=== PATIENT | female | born 1940 | race Caucasian/White ===

== ENCOUNTER 2016-06-29 10:10 | Outpatient (CLI) | payer MEDICARE ==
[2016-06-29 13:19] LABS: ALBUMIN/GLOBULIN RATIO 0.8 (1.0-2.2); CALCIUM 8.9 mg/dL (8.5-10.3); CREATININE 0.8 mg/dL (0.4-1.0); POTASSIUM 3.7 mmol/L (3.5-5.0); TOTAL PROTEIN 8.1 g/dL (6.7-8.2)
[2016-06-29 13:50] LABS: BILIRUBIN,TOTAL 0.6 mg/dL (0.2-1.0)
== END 2016-06-29 10:11 | disposition home or self-care (01) ==
LOC: LAB.WCP 10:10
PROVIDERS: ATTEND Family Medicine
DX: R74.8 Abnormal levels of other serum enzymes (principal)
CPT/HCPCS: 36415; 80053

== ENCOUNTER 2016-07-07 13:55 | Outpatient (CLI) | payer MEDICARE | END 2016-07-07 13:56 | disposition home or self-care (01) | DX: R74.8 Abnormal levels of other serum enzymes (principal) ==

== ENCOUNTER 2016-07-20 06:06 | Day surgery (SDC) | payer MEDICARE ==
[2016-07-20] MEDS ORDERED: PHENYLEPHRINE 2.5% OPHTH 2 ML DROPS ONE (06:22)
[2016-07-20] MEDS ORDERED: LACTATED RINGERS 500 ML IV ONE (06:40)
[2016-07-20] MEDS ORDERED: PHENYLEPHRINE 2.5% OPHTH 2 ML DROPS OPTH ONE (06:42)
[2016-07-20] MEDS ORDERED: CYCLOPENTOLATE 1% OPHTH DROPS 2 ML OPTH ONE (06:42)
[2016-07-20] MEDS ORDERED: PROPARACAINE 0.5% OPHTH DROPS 15 ML OPTH ONE (06:42)
[2016-07-20] MEDS ORDERED: KETOROLAC 0.45% OPHTH DROPS OPTH ONE (06:42)
[2016-07-20] MEDS ORDERED: MIDAZOLAM 2 MG/2 ML VIAL IVP ONE (07:15)
[2016-07-20] MEDS ORDERED: BRIMONIDINE 0.2% OPHTH DROPS 5 ML OPTH ONE (07:30)
[2016-07-20] MEDS ORDERED: EPINEPHrine 1 MG/ML AMP IVP ONE (10:41)
[2016-07-20] MEDS ORDERED: levoFLOXacin 0.5% OPHTH DROPS 5 ML OPTH ONE (10:42)
[2016-07-20] MEDS ORDERED: BSS/LIDOCAINE/EPINEPHRINE 1 ML SYRINGE IO ONE (10:42)
[2016-07-20] MEDS ORDERED: CHONDR SULF/HYALURONATE SYRINGE IO ONE (10:42)
[2016-07-20] MEDS ORDERED: TRIAMCIN/MOXIFLOX/VANCO 1 ML VIAL IO ONE (10:42)
== END 2016-07-20 06:07 | disposition home or self-care (01) ==
PROC: 08RK3JZ Replacement of Left Lens with Synthetic Substitute, Percutaneous Approach (ICD-10-PCS; principal; 2016-07-20 07:30)
DX: H25.812 Combined forms of age-related cataract, left eye (principal); I10 Essential (primary) hypertension; Z79.82 Long term (current) use of aspirin; Z86.73 Personal history of transient ischemic attack (TIA), and cerebral infarction without residual deficits; Z83.3 Family history of diabetes mellitus; Z87.891 Personal history of nicotine dependence; J44.9 Chronic obstructive pulmonary disease, unspecified; E66.9 Obesity, unspecified; Z68.41 Body mass index [BMI] 40.0-44.9, adult; G47.30 Sleep apnea, unspecified
CPT/HCPCS: 66984; A9270; V2632

== ENCOUNTER 2017-09-06 08:00 | Outpatient (CLI) | payer MEDICARE ==
[2017-09-06 19:06] LABS: BASOPHILS # (AUTO) 0.1 10^3/uL (0.0-0.1); BASOPHILS % (AUTO) 0.6 %; EOSINOPHILS # (AUTO) 0.2 10^3/uL (0.0-0.7); EOSINOPHILS % (AUTO) 1.2 %; HGB - HEMOGLOBIN 15.2 g/dL (12.0-16.0); LYMPHOCYTES % (AUTO) 14.3 %; MEAN CORPUSCULAR HEMOGLOBIN 25.2 pg (27.0-31.0); MEAN CORPUSCULAR HGB CONC 31.1 g/dL (32.0-36.0); MEAN CORPUSCULAR VOLUME 81.1 fL (81.0-99.0); MEAN PLATELET VOLUME 9.6 fL (7.9-10.8); MONOCYTES # (AUTO) 1.1 10^3/uL (0.0-1.0); MONOCYTES % (AUTO) 7.8 %; NEUTROPHILS # (AUTO) 10.5 10^3/uL (1.5-6.6); NEUTROPHILS % (AUTO) 76.1 %; PLT - PLATELET COUNT 319 10^3/uL (130-450); RED BLOOD COUNT 6.01 10^6/uL (4.20-5.40); RED CELL DISTRIBUTION WIDTH 16.1 % (12.0-15.0); WHITE BLOOD COUNT 13.7 x10^3/uL (4.8-10.8)
[2017-09-06 19:15] LABS: ALBUMIN 3.5 g/dL (3.2-5.5); ALBUMIN/GLOBULIN RATIO 0.8 (1.0-2.2); ALKALINE PHOSPHATASE 103 IU/L (42-121); ALT ALANINE AMINOTRANSFERASE 34 IU/L (10-60); AST ASPARTATE AMINOTRANSFERASE 59 IU/L (10-42); BILIRUBIN,TOTAL 0.5 mg/dL (0.2-1.0); BUN - BLOOD UREA NITROGEN 21 mg/dL (6-20); CALCIUM 8.6 mg/dL (8.5-10.3); CARBON DIOXIDE - CO2 28 mmol/L (21-32); CHLORIDE 103 mmol/L (101-111); CHOL/HDL RATIO 6.4 (<4.4); CHOLESTEROL 173 mg/dL; CREATININE 0.5 mg/dL (0.4-1.0); GFR - MDRD 120 (>89); GLUCOSE 137 mg/dL (70-100); HDL CHOLESTEROL 27 mg/dL; LDL CHOLESTEROL,CALCULATED 124 mg/dL; LDL/HDL RATIO 4.6 (<4.4); SODIUM 140 mmol/L (135-145); TOTAL PROTEIN 7.7 g/dL (6.7-8.2); VLDL CHOLESTEROL 22 mg/dL
== END 2017-09-06 08:01 | disposition home or self-care (01) ==
LOC: LAB.WCP 08:00
PROVIDERS: ATTEND Family Medicine
DX: I10 Essential (primary) hypertension (principal); E78.5 Hyperlipidemia, unspecified; E66.01 Morbid (severe) obesity due to excess calories; D75.1 Secondary polycythemia; I20.9 Angina pectoris, unspecified
CPT/HCPCS: 36415; 80053; 80061; 83721; 84443; 85025

== ENCOUNTER 2017-11-02 16:15 | Outpatient (CLI) | payer MEDICARE ==
--- NOTE | 2017-11-02 17:38 | CT Report ---
Procedure Date: 11/02/2017 Accession Number: [id number] / [id number] Procedure: CT - Facial Bones W/O CPT Code: FULL RESULT: EXAM: CT MAXILLOFACIAL WITHOUT CONTRAST EXAM DATE: 11/02/2017 04:47 PM. CLINICAL HISTORY: MAXILLARY ASYMMETRY, CELLULITIS FACE, RIGHT. COMPARISONS: None. TECHNIQUE: Thin-section axial images were acquired of the face without contrast. Post-processing: Coronal and sagittal reformats. Other: None. In accordance with CT protocol optimization, one or more of the following dose reduction techniques were utilized for this exam: automated exposure control, adjustment of mA and/or KV based on patient size, or use of iterative reconstructive technique. FINDINGS: Soft Tissue: Streak artifact obscures perimandibular and perimaxillary soft tissues. There is mild fat stranding and increased soft tissue density within the visualized right maxillary soft tissues without noncontrast evidence of drainable fluid collection. Orbits: Symmetric and unremarkable. Bones: No acute fracture. Remote nasal bone fracture. No focal bony lesions. Temporomandibular Joints: The temporomandibular joints are symmetric and normally located. Sinuses: There is mild right maxillary sinus mucosal thickening. No evidence of acute sinusitis. Mastoid air cells are clear. Other: There is encephalomalacia within the right occipital region. There is right MCA distribution encephalomalacia. IMPRESSION: 1. Streak artifact from dental fillings obscures perimandibular and perimaxillary soft tissues. There is mild fat stranding and increased soft tissue density within the visualized right maxillary soft tissues without noncontrast evidence of drainable fluid collection. 2. No acute bony abnormalities are seen. 3. There is right maxillary sinusitis. 4. 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 [facility]
== END 2017-11-02 16:16 | disposition home or self-care (01) ==
LOC: DI 16:15
PROVIDERS: ATTEND Family Medicine
DX: J32.0 Chronic maxillary sinusitis (principal); Z86.73 Personal history of transient ischemic attack (TIA), and cerebral infarction without residual deficits
CPT/HCPCS: 70486

== ENCOUNTER 2018-01-15 11:53 | Outpatient (CLI) | payer MEDICARE ==
[2018-01-15 18:37] LABS: BASOPHILS # (AUTO) 0.1 10^3/uL (0.0-0.1); BASOPHILS % (AUTO) 0.7 %; EOSINOPHILS # (AUTO) 0.1 10^3/uL (0.0-0.7); HGB - HEMOGLOBIN 16.1 g/dL (12.0-16.0); LYMPHOCYTES # (AUTO) 1.9 10^3/uL (1.5-3.5); LYMPHOCYTES % (AUTO) 14.4 %; MEAN CORPUSCULAR HEMOGLOBIN 25.8 pg (27.0-31.0); MEAN CORPUSCULAR HGB CONC 32.1 g/dL (32.0-36.0); MEAN CORPUSCULAR VOLUME 80.4 fL (81.0-99.0); MEAN PLATELET VOLUME 9.7 fL (7.9-10.8); MONOCYTES # (AUTO) 1.1 10^3/uL (0.0-1.0); NEUTROPHILS # (AUTO) 10.2 10^3/uL (1.5-6.6); NEUTROPHILS % (AUTO) 75.9 %; PLT - PLATELET COUNT 275 10^3/uL (130-450); RED BLOOD COUNT 6.23 10^6/uL (4.20-5.40); RED CELL DISTRIBUTION WIDTH 18.6 % (12.0-15.0); WHITE BLOOD COUNT 13.4 x10^3/uL (4.8-10.8)
[2018-01-15 19:26] LABS: ALBUMIN 3.5 g/dL (3.2-5.5); ALBUMIN/GLOBULIN RATIO 0.8 (1.0-2.2); BILIRUBIN,TOTAL 0.9 mg/dL (0.2-1.0); CALCIUM 8.6 mg/dL (8.5-10.3); CREATININE 0.4 mg/dL (0.4-1.0); TOTAL PROTEIN 7.8 g/dL (6.7-8.2)
== END 2018-01-15 11:54 ==
LOC: LAB.WCP 11:53
PROVIDERS: ATTEND Family Medicine
DX: R61 Generalized hyperhidrosis (principal); R59.0 Localized enlarged lymph nodes
CPT/HCPCS: 36415; 80053; 85025; 86140

== ENCOUNTER 2018-01-23 12:35 | Outpatient (CLI) | payer MEDICARE ==
[2018-01-23] MEDS ORDERED: IOPAMIDOL-300 100 ML VIAL ONE (13:00)
[2018-01-23] MEDS ORDERED: IOPAMIDOL-300 100 ML VIAL IVP ONE (13:26)
--- NOTE | 2018-01-23 17:15 | CT Report ---
Reason: NIGHT SWEATS, LYMPHADENOPATHY, AXILLA, CERVICAL LY Procedure Date: 01/23/2018 Accession Number: [id number] / [id number] Procedure: CT - Chest W/ CPT Code: FULL RESULT: EXAM: CT CHEST EXAM DATE: 01/23/2018 01:19 PM. CLINICAL HISTORY: NIGHT SWEATS, LYMPHADENOPATHY, AXILLA, CERVICAL LY. COMPARISONS: 03/28/2017. TECHNIQUE: Routine helical CT imaging was performed through the chest. IV contrast: 80 cc Isovue 300. Reconstructions: Coronal and sagittal. In accordance with CT protocol optimization, one or more of the following dose reduction techniques were utilized for this exam: automated exposure control, adjustment of mA and/or KV based on patient size, or use of iterative reconstructive technique. FINDINGS: Lungs/Pleura: No change of small right upper lobe nodule. Otherwise clear. No effusion or pneumothorax. Mediastinum: Normal heart size. No pericardial effusion. At least three-vessel coronary artery calcification. No lymphadenopathy. Bones: Degenerative changes. Visualized Abdomen: Bilateral renal cysts. Other: None. IMPRESSION: Incidental findings as noted. Negative for lymphadenopathy. [facility]
--- NOTE | 2018-01-24 14:10 | CT Report ---
Reason: NIGHT SWEATS, LYMPHADENOPATHY, AXILLA, CERVICAL LY Procedure Date: 01/23/2018 Accession Number: [id number] / [id number] Procedure: CT - Neck Soft Tissue W/ CPT Code: FULL RESULT: EXAM: CT SOFT TISSUE NECK WITH CONTRAST. EXAM DATE: 01/23/2018 01:19 PM. HISTORY: 77-year-old female with night sweats, lymphadenopathy. COMPARISONS: CHEST W/ 01/23/2018 CHEST W/O 03/28/2017. TECHNIQUE: Routine soft tissue neck CT protocol. Reconstructions: Coronal and sagittal. IV contrast: ISOVUE 300 80mL. In accordance with CT protocol optimization, one or more of the following dose reduction techniques were utilized for this exam: automated exposure control, adjustment of mA and/or KV based on patient size, or use of iterative reconstructive technique. FINDINGS: Visualized Intracranial Contents: Cystic encephalomalacia right occipital lobe, likely sequela remote infarction Orbits: Symmetric and unremarkable. Sinuses: Visualized paranasal sinuses and mastoid air cells are clear. Oral cavity: The visualized oral cavity is unremarkable. The floor of the mouth is symmetric. Pharynx : Pharyngeal mucosa is unremarkable. The infratemporal fossa, parapharyngeal spaces, and retropharyngeal space are unremarkable. The base of the tongue is symmetric and unremarkable. The airway is patent. Larynx: Larynx and supraglottic airway are patent without mass lesion. Vocal cords are symmetric. The visualized trachea is unremarkable. Parotid and Submandibular Glands: Symmetric and unremarkable. Lymph Nodes: No enlarged lymph nodes are identified in the cervical, supraclavicular, and visualized superior mediastinal regions. Soft tissues: Soft tissues are unremarkable. No mass lesion or abnormal enhancement. Vascular Structures: Extensive atherosclerosis visualized aortic arch, origins of the great vessels, and the carotid bifurcations bilaterally. Thyroid Gland: Normal. Lung: The visualized lung apices demonstrate 2 pulmonary nodules, a 6 mm right upper lobe nodule (series 4 image 43) and a 10 mm left upper lobe nodule (series 4 image 50). Both nodes are unchanged when compared to the prior studies going back to 03/28/2017. Please see the concurrently obtained CT chest, dictated separately for detailed assessment of the lungs and mediastinum. Recommend follow-up as per Fleischner Society criteria (see below) Bones: No evidence of acute fracture or malalignment. There are mild degenerative changes. Other: None. IMPRESSION: 1. No CT evidence of cervical adenopathy. No soft tissue mass, abscess, or definite mucosal abnormality. 2. The visualized lung apices demonstrate 2 pulmonary nodules, a 6 mm right upper lobe nodule (series 4 image 43) and a 10 mm left upper lobe nodule (series 4 image 50). Both nodes are unchanged when compared to the prior studies going back to 03/28/2017. Please see the concurrently obtained CT chest, dictated separately for detailed assessment of the lungs and mediastinum. Recommend follow-up as per Fleischner Society criteria (see below). 3. Cystic encephalomalacia right occipital lobe, likely sequela of remote infarction 4. Extensive atherosclerosis visualized aortic arch, origins of the great vessels, and the carotid bifurcations bilaterally. Recommend follow-up of the described nodule(s) according to the following guidelines: Fleischner Society Recommendations 2017 MacMahon et al. Radiology 2017 Solid Nodules-Low Risk Patients: <6 mm (single or multiple) - No routine follow-up* 6-8 mm (single) -CT at 6-12 months, then consider CT at 18-24 months 6-8mm (multiple) -CT at 3-6 months, then consider at CT 18-24 months >8 mm (single) -Consider CT, PET/CT, or tissue sampling at 3 months >8 mm (multiple) -CT at 3-6 months, then consider CT at 18-24 months Solid Nodules-High Risk Patients: <6 mm (single or multiple) -Optional CT at 12 months* 6-8 mm (single) -CT at 6-12 months, then CT at 18-24 months 6-8mm (multiple) -CT at 3-6 months, then CT at 18-24 months >8 mm (single) -Consider CT, PET/CT, or tissue sampling at 3 months >8 mm (multiple) -CT at 3-6 months, then at 18-24 months *Nodules < 6mm do not require routine follow-up, but suspicious nodule morphology, upper lobe location, or both may warrant 12 month follow-up [facility]
== END 2018-01-23 12:36 | disposition home or self-care (01) ==
LOC: DI 12:35
PROVIDERS: ATTEND Family Medicine
DX: R91.8 Other nonspecific abnormal finding of lung field (principal); G93.89 Other specified disorders of brain; I25.10 Atherosclerotic heart disease of native coronary artery without angina pectoris; I65.23 Occlusion and stenosis of bilateral carotid arteries
CPT/HCPCS: 70491; 71260; Q9967

== ENCOUNTER 2018-08-05 11:40 | Outpatient (CLI) | payer MEDICARE ==
[2018-08-05 18:59] LABS: BASOPHILS # (AUTO) 0.1 10^3/uL (0.0-0.1); BASOPHILS % (AUTO) 0.7 %; EOSINOPHILS # (AUTO) 0.2 10^3/uL (0.0-0.7); EOSINOPHILS % (AUTO) 1.3 %; HGB - HEMOGLOBIN 17.1 g/dL (12.0-16.0); LYMPHOCYTES # (AUTO) 2.1 10^3/uL (1.5-3.5); LYMPHOCYTES % (AUTO) 17.6 %; MEAN CORPUSCULAR HEMOGLOBIN 27.1 pg (27.0-31.0); MEAN CORPUSCULAR HGB CONC 31.7 g/dL (32.0-36.0); MEAN CORPUSCULAR VOLUME 85.7 fL (81.0-99.0); MEAN PLATELET VOLUME 9.7 fL (7.9-10.8); MONOCYTES # (AUTO) 0.9 10^3/uL (0.0-1.0); MONOCYTES % (AUTO) 7.3 %; NEUTROPHILS # (AUTO) 8.8 10^3/uL (1.5-6.6); NEUTROPHILS % (AUTO) 73.1 %; PLT - PLATELET COUNT 286 10^3/uL (130-450); RED CELL DISTRIBUTION WIDTH 17.3 % (12.0-15.0)
[2018-08-05 19:43] LABS: ALBUMIN 3.5 g/dL (3.2-5.5); ALBUMIN/GLOBULIN RATIO 0.8 (1.0-2.2); ALKALINE PHOSPHATASE 100 IU/L (42-121); ALT ALANINE AMINOTRANSFERASE 26 IU/L (10-60); AST ASPARTATE AMINOTRANSFERASE 37 IU/L (10-42); BILIRUBIN,TOTAL 0.8 mg/dL (0.2-1.0); BUN - BLOOD UREA NITROGEN 18 mg/dL (6-20); CALCIUM 8.7 mg/dL (8.5-10.3); CARBON DIOXIDE - CO2 28 mmol/L (21-32); CHLORIDE 96 mmol/L (101-111); CHOLESTEROL 192 mg/dL; CREATININE 0.6 mg/dL (0.4-1.0); GFR - MDRD 97 (>89); GLUCOSE 153 mg/dL (70-100); HDL CHOLESTEROL 32 mg/dL; LDL CHOLESTEROL,CALCULATED 136 mg/dL; LDL/HDL RATIO 4.3 (<4.4); SODIUM 135 mmol/L (135-145); TOTAL PROTEIN 7.7 g/dL (6.7-8.2); VLDL CHOLESTEROL 24 mg/dL
== END 2018-08-05 11:41 | disposition home or self-care (01) ==
LOC: LAB.WCP 11:40
PROVIDERS: ATTEND Family Medicine
DX: I10 Essential (primary) hypertension (principal); E78.5 Hyperlipidemia, unspecified
CPT/HCPCS: 36415; 80053; 80061; 83721; 85025

== ENCOUNTER 2019-04-11 15:14 | Inpatient (IN) | payer MEDICARE ==
[2019-04-11 15:59] LABS: BASOPHILS # (AUTO) 0.1 10^3/uL (0.0-0.1); BASOPHILS % (AUTO) 0.6 %; EOSINOPHILS # (AUTO) 0.1 10^3/uL (0.0-0.7); EOSINOPHILS % (AUTO) 0.6 %; HGB - HEMOGLOBIN 14.7 g/dL (12.0-16.0); LYMPHOCYTES # (AUTO) 1.6 10^3/uL (1.5-3.5); LYMPHOCYTES % (AUTO) 9.7 %; MEAN CORPUSCULAR HEMOGLOBIN 25.6 pg (27.0-31.0); MEAN CORPUSCULAR HGB CONC 30.4 g/dL (32.0-36.0); MEAN CORPUSCULAR VOLUME 84.1 fL (81.0-99.0); MEAN PLATELET VOLUME 10.7 fL (7.9-10.8); MONOCYTES # (AUTO) 1.2 10^3/uL (0.0-1.0); MONOCYTES % (AUTO) 7.6 %; NEUTROPHILS % (AUTO) 80.8 %; PLT - PLATELET COUNT 299 10^3/uL (130-450); RED BLOOD COUNT 5.74 10^6/uL (4.20-5.40); RED CELL DISTRIBUTION WIDTH 16.6 % (12.0-15.0); WHITE BLOOD COUNT 16.1 x10^3/uL (4.8-10.8)
--- NOTE | 2019-04-11 16:03 | ED Physician Documentation ---
History of Present Illness - Stated complaint Stated Complaint: SOA, CHILLS - Chief complaint Chief Complaint: Resp - Additonal information Additional information: This is a 78-year-old female with a history of COPD, polycythemia, angina, who presents with progressive shortness of breath and leg swelling. Patient states that typically she is on a low level of oxygen via nasal cannula only as needed at home. She has had increasing need for oxygen over the last week, and she is very short of breath with any ambulation at all. She denies chest discomfort but states that her breathing feels tight. She has been quite short of breath e specially over the last day, to the point where she sought care in the emergency department. She denies any past diagnosis of atrial fibrillation or other dysrhythmia. She has never been told she has heart failure. She denies fever but she has had chills. She has noticed her bilateral legs appear swollen to her, and she is very short of breath when she lies down. Review of Systems Constitutional: reports: Chills. 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 Cardiovascular: Coronary stent, Lobectomy HEENT: Cataracts, Tonsil/Adenoidectomy - Present Medications Home Medications: Ambulatory Orders Medication Instructions Recorded Confirmed Amlodipine Besylate [Norvasc] 5 mg PO QPM 05/03/15 03/31/19 Aspirin 81 mg PO QPM 05/03/15 03/31/19 Fluticasone/Salmeterol 250/50 1 puffs INH BID 05/03/15 03/31/19 [Advair 250 Mcg/50 Mcg] Gabapentin 600 mg PO QPM 05/03/15 03/31/19 traZODone [Desyrel] 50 mg PO QPM 05/03/15 03/31/19 hydroCHLOROthiazide 12.5 mg PO DAILY 03/06/16 03/31/19 [Hydrochlorothiazide] FLUoxetine [PROzac] 20 mg PO DAILY 12/30/18 03/31/19 - Allergies Allergies/Adverse Reactions: Allergies Allergy/AdvReac Type Severity Reaction Status Date / Time No Known Drug Allergies Allergy Verified 04/11/19 15:22 - Social History Does the pt smoke?: No Smoking Status: Never smoker Does the pt drink ETOH?: No Does the pt have substance abuse?: No - Immunizations Immunizations are current?: Yes PD ED PE NORMAL - General General: Other (Sitting up in bed, wearing nasal cannula, with tachypnea and obvious increased work of breathing.) - HEENT HEENT: Atraumatic - Cardiac Cardiac: Other (Irregularly irregular rhythm, atrial fibrillation on the monitor. No murmurs.) - Respiratory Respiratory: Other (Tachypneic, breathing greater than 20 times a minute while on nasal cannula. There are bibasilar crackles, and reduced air movement diffusely.) - Abdomen Abdomen: Other (Soft, rotund, nontender in all 4 quadrants.) - Extremities Extremities: Other (1+ pitting edema in the bilateral extremities to level the melendrez.) - Neuro Neuro: Alert and oriented X 3 Results - Vitals Vitals: Vital Signs - 24 hr 04/11/19 04/11/19 04/11/19 15:23 15:41 16:31 Temperature 36.9 C Heart Rate 80 115 H 107 H Respiratory 26 H 23 18 Rate Blood Pressure 114/81 H 113/83 H 122/87 H O2 Saturation 89 L 94 94 04/11/19 04/11/19 04/11/19 16:50 17:05 17:39 Temperature Heart Rate 122 H 112 H 119 H Respiratory 24 23 Rate Blood Pressure 122/89 H 137/95 H O2 Saturation 99 92 04/11/19 04/11/19 18:00 18:30 Temperature Heart Rate 126 H 108 H Respiratory 18 23 Rate Blood Pressure 137/95 H 158/142 H O2 Saturation 99 95 Oxygen O2 Source BIPAP Oxygen Flow Rate 2 - EKG (time done) 15:44 Other comments: Other comments (Rate 114, rhythm atrial fibrillation, there is no obvious ST segment elevation or depression, baseline artifact obscures fine details) - Labs Labs: Laboratory Tests 04/11/19 04/11/1904/11/19 15:55 15:55 15:55 WBC 16.1 H RBC 5.74 H Hgb 14.7 Hct 48.3 H MCV 84.1 MCH 25.6 L MCHC 30.4 L RDW 16.6 H Plt Count 299 MPV 10.7 Neut # (Auto) 13.0 H Lymph # (Auto) 1.6 Page # (Auto) 1.2 H Eos # (Auto) 0.1 Baso # (Auto) 0.1 Absolute Nucleated RBC 0.00 Nucleated RBC % 0.0 Sodium 137 Potassium 4.0 Chloride 96 L Carbon Dioxide 30 Anion Gap 11.0 BUN 20 Creatinine 0.6 Estimated GFR (MDRD) 97 Glucose 149 H Calcium 8.6 Total Bilirubin 0.7 AST 36 ALT 23 Alkaline Phosphatase 84 Troponin I High Sens 10.1 B-Natriuretic Peptide Total Protein 7.9 Albumin 3.4 Globulin 4.5 H Albumin/Globulin Ratio 0.8 L Lipase 25 04/11/19 15:55 WBC RBC Hgb Hct MCV MCH MCHC RDW Plt Count MPV Neut # (Auto) Lymph # (Auto) Page # (Auto) Eos # (Auto) Baso # (Auto) Absolute Nucleated RBC Nucleated RBC % Sodium Potassium Chloride Carbon Dioxide Anion Gap BUN Creatinine Estimated GFR (MDRD) Glucose Calcium Total Bilirubin AST ALT Alkaline Phosphatase Troponin I High Sens B-Natriuretic Peptide 370 H Total Protein Albumin Globulin Albumin/Globulin Ratio Lipase - Rads (name of study) CXR, my interpretation\ Radiology: Other (Diffuse interstitial markings suggestive of pulmonary edema, pleural effusion on the right.Hilar prominence on the right) PD MEDICAL DECISION MAKING - ED course Complexity details: considered differential (Heart failure, ACS, pleural effusion, pneumothorax, pneumonia, electrolyte abnormality, dysrhythmia) ED course: On arrival patient is hypoxic and tachypneic, with rest on nasal cannula she maintains O2 at ~95%, but she continues to be tachypneic. On the monitor she is in atrial fibrillation, EKG shows A. fib with a rate of 114, no convincing signs of acute ischemia. Chest x-ray is obtained which confirms some volume overload with a right pleural effusion. Bedside echocardiogram is somewhat limited due to body habitus however she does appear to have reduced left ejection fraction. Her right ventricle appears normal in proportional size. Labs are notable for a normal troponin, patient has no chest pain, making ACS less likely. Her BNP is elevated, and given her body habitus it likely is not accurate. Patient was placed on BiPAP and she had marketed improvement of her respiratory status. PE was considered however her leg swelling is all, she has no pleuritic pain, and given her improvement with BiPAP pulmonary embolism is less likely. She was also given Lasix 40 mg IV. On her labs she does have a leukocytosis, yet she is afebrile here and I do not see an obvious infectious source at this time. Leukocytosis may also be secondary to stress and demargination. Overall she appears to have new onset of heart failure and atrial fibrillation. Her atrial fibrillation is rate controlled at this time. She was admitted to the hospital for further evaluation and treatment, if she becomes febrile or infectious source is found, plan is to start on antibiotics and draw blood cultures. Urine is pending at time of admission. Patient was updated with the plan and she is in agreement. She continues to feel very well on the BiPAP. Departure - Departure Disposition: [facility] DC/Xfer Clinical Impression: Heart failure Qualifiers: Heart failure type: unspecified Heart failure chronicity: unspecified Qualified Code(s): I50.9 - Heart failure, unspecified Leukocytosis Qualifiers: Leukocytosis type: other Qualified Code(s): D72.828 - Other elevated white blood cell count Respiratory failure Qualifiers: Chronicity: acute Respiratory failure complication: hypoxia Qualified Code(s): J96.01 - Acute respiratory failure with hypoxia Condition: Stable Discharge Date/Time: 04/11/19 19:43
[2019-04-11 16:13] LABS: ALBUMIN 3.4 g/dL (3.2-5.5); ALBUMIN/GLOBULIN RATIO 0.8 (1.0-2.2); BILIRUBIN,TOTAL 0.7 mg/dL (0.2-1.0); CALCIUM 8.6 mg/dL (8.5-10.3); CREATININE 0.6 mg/dL (0.4-1.0); TOTAL PROTEIN 7.9 g/dL (6.7-8.2)
[2019-04-11] MEDS ORDERED: FUROSEMIDE 40 MG/4 ML VIAL IVP STA (18:16)
[2019-04-11] MEDS ORDERED: SODIUM CHLORIDE FLUSH 0.9% 10 ML SYRINGE IVP PRN (19:27)
[2019-04-11] MEDS ORDERED: ACETAMINOPHEN 325 MG TABLET PO PRN (19:27)
[2019-04-11 20:20] LABS: MAGNESIUM 2.3 mg/dL (1.7-2.8); PHOSPHORUS 3.6 mg/dL (2.5-4.6)
--- NOTE | 2019-04-11 20:46 | HISTORY & PHYSICAL EXAMINATION ---
Chief Complaint - Chief Complaint Chief Complaint: Shortness of breath History of Present Illness - Admitted From Admitted From:: Home - History Obtained From Records Reviewed: Yes History obtained from: Patient, EMR - History of Present Illness HPI Comment/Other: This is a 78-year-old female with a past medical history significant for COPD with oxygen use as needed, obstructive sleep apnea, polycythemia, neuropathy, hypertension, coronary artery disease with stenting in the past who presents today complaining of worsening shortness of breath over the past week. She states her symptoms have progressively become more severe. She has associated orthopnea and worsening lower extremity edema over the past week. Reports a mild nonproductive cough. Denies fevers but reports chills. She has been using her Advair and albuterol more frequently this past week with improvement in her symptoms. She reports no sick contacts. She did not get a flu shot this year. She reports no history of heart failure. She did have a stent placed over 10 y ears ago in [place] but denies chest pain at this time. She denies a history of atrial fibrillation. Denies having palpitations. She reports no bleeding history. She does have polycythemia and gets monthly phlebotomies. In the emergency department, she was initially hypoxic to 89% on room air. She is found to be in atrial fibrillation with rates in the 120s. She is given Lasix 40 mg IV and placed on BiPAP given her respiratory status. Her labs did reveal a white count of 16.1 with a left shift. Her initial troponin was negative. BNP was 370. Rest of her labs unremarkable. Given her respiratory symptoms and requirement of BiPAP, medicine was consulted for admission. I did discuss with the patient regarding goals of care and she would like to be a DNR. We also discussed the possibility of intubation if deemed necessary and she also declined that. 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 - Family & Social History Family History Comment/Other: She reports her twin sister from a aortic dissection. Her father in his 40s which she believes was secondary to a possible aneurysm. Her mother lived into her 90s. Living arrangement: At home Living Situation: Alone Social History Notes: She previously lived in [place] but moved here 3 years ago after her to be closer to her son. 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 She no longer smokes but previously smoked 2 to 3 packs a day for at least 30 years. She does not drink alcohol. She wishes to be a DNR. Meds/Allgy - Home Medications Home Medications: Ambulatory Orders Medication Instructions Recorded Confirmed Amlodipine Besylate [Norvasc] 5 mg PO QPM 05/03/15 03/31/19 Aspirin 81 mg PO QPM 05/03/15 03/31/19 Fluticasone/Salmeterol 250/50 1 puffs INH BID 05/03/15 03/31/19 [Advair 250 Mcg/50 Mcg] Gabapentin 600 mg PO QPM 05/03/15 03/31/19 traZODone [Desyrel] 50 mg PO QPM 05/03/15 03/31/19 hydroCHLOROthiazide 12.5 mg PO DAILY 03/06/16 03/31/19 [Hydrochlorothiazide] FLUoxetine [PROzac] 20 mg PO DAILY 12/30/18 03/31/19 - Allergies Allergies/Adverse Reactions: Allergies Allergy/AdvReac Type Severity Reaction Status Date / Time No Known Drug Allergies Allergy Verified 04/11/19 15:22 Review of Systems - Constitutional Constitutional: reports: Chills. denies: Fatigue, Fever, Weakness - Cardiovascular Cariovascular: reports: Edema, Exertional dyspnea, Decr. exercise tolerance. denies: Palpitations, Chest pain - Respiratory Respiratory: reports: Cough, Orthopnea, SOB at rest, SOB with exertion. denies: Sputum production, Wheezing - Gastrointestinal Gastrointestinal: denies: Abdominal pain, Constipation, Diarrhea, Nausea, Vomiting - Genitourinary Genitourinary: denies: Dysuria, Frequency, Urgency - Musculoskeletal Musculoskeletal: denies: Muscle weakness - Integumentary Integumentary: denies: Rash - Neurological Neurological: denies: General weakness, Focal weakness, Numbness - Hematologic/Lymphatic Hematologic/Lymphatic: denies: Anemia, Bruising, Bleeding tendencies - All Other Systems All Other Systems: reports: Reviewed and negative Prior Level of Functionality: Shee lives alone and usually ambulates with a walker. She does have a cane which she does not use often. Exam - Vital Signs Reviewed Vital Signs: Yes Vital Signs: Vital Signs x48h Temp Pulse Pulse Resp BP BP Pulse Ox 04/11/19 20:13 36.6 C 04/11/19 20:00 100 30 H 105/69 97 04/11/19 19:55 111 H 04/11/19 19:30 127 H 24 95 04/11/19 19:00 121 H 23 146/112 H 95 04/11/19 18:30 108 H 23 158/142 H 95 04/11/19 18:00 126 H 18 137/95 H 99 04/11/19 17:39 119 H 23 137/95 H 92 04/11/19 17:05 112 H 04/11/19 16:50 122 H 24 122/89 H 99 04/11/19 16:31 107 H 18 122/87 H 94 04/11/19 15:41 115 H 23 113/83 H 94 04/11/19 15:23 36.9 C 80 26 H 114/81 H 89 L - Physical Exam General Appearance: positive: No acute distress, Alert Eyes Bilateral: positive: Normal inspection ENT: positive: ENT inspection nml, Other (Nasal cannula in place.) Neck: positive: Nml inspection Respiratory: positive: No respiratory distress, Other (Breath sounds diminished in the bases but clear otherwise. She is tachypnic with respiratory rate in the low 20's.). negative: Wheezes, Rales, Rhonchi Cardiovascular: positive: Irregularly irregular, Tachycardia. negative: Systolic murmur, Diastolic murmur Abdomen: positive: Non-tender, No distention. negative: Guarding, Rebound Skin: positive: No rash, Warm, Dry Extremities: positive: Pedal edema (+1 nonpitting edema in bilateral lower extremities.) Neurologic/Psychiatric: positive: Oriented x3, Motor nml. negative: Disoriented to person, Disoriented to place, Disoriented to time Conclusion/Plan - Problem List (1) Dyspnea Conclusion/Plan: Presenting symptoms are concerning for heart failure. She does have orthopnea and lower extremity edema. She is currently saturating 92% on room air but she i nsists on keeping the oxygen on as it improves her symptoms. Her x-ray is suggestive of a tiny right pleural effusion and mild pulmonary vascular congestion although the official radiology report is pending. BNP is only mildly elevatd in the 300's. She received Lasix IV in the emergency department with improvement in her symptoms. We will continue her on Lasix IV daily. We will check an echocardiogram in the morning. We will also obtain Dopplers of the lower extremities to evaluate for possible DVT. If her symptoms persist despite diuresis and Dopplers are negative, will obtain CTA of the chest. (2) Atrial fibrillation with rapid ventricular response Conclusion/Plan: This is a new diagnosis for her. Resented with heart rates in the 110s to 120s. Troponin negative x2. Her electrolytes are optimized. We will check a TSH and echocardiogram. We will start her on metoprolol 25 mg twice a day. We did discuss anticoagulation given her elevated [id number] and she is agreeable to this. We will start her on Eliquis 5 mg twice a day (3) COPD (chronic obstructive pulmonary disease) Conclusion/Plan: Her presenting symptoms are not consistent with a COPD exacerbation despite her reported improvement with albuterol and Advair. Her lungs are diminished in the bases and clear throughout without wheezing. We will continue Pulmicort and formoterol while inpatient. Albuterol as needed. Continue supplemental oxygen for goal saturation greater than 88%. (4) Obstructive sleep apnea Conclusion/Plan: She is not on CPAP at home. She uses oxygen as needed overnight. (5) Hypertension Conclusion/Plan: She is currently normotensive. Will resume her home amlodipine and hydrochlorothiazide. (6) Coronary artery disease Conclusion/Plan: EKG is without signs of ischemia. Troponin has been negative x2. Continue aspirin. She should be on a statin and will start Lipitor. (7) Polycythemia Conclusion/Plan: Her hemoglobin is stable at this time. She can continue outpatient phlebotomy and follow-up with hematology. - Lab Results Lab results reviewed: Yes Fish Bones: 04/12/19 05:17 04/12/19 05:17 - Diagnostic Imaging Results Diagnostic Imaging Results: positive: Read independently Diagnostic Imaging Results Comments: There appears to be a tiny right pleural effusion. No obvious infiltrate. Possible mild pulmonary vascular congestion. - EKG Results EKG Interpreted Independently: Yes EKG Comparison: Changed from prior EKG EKG Findings: EKG revealed atrial fibrillation with rates in the 110s. No obvious signs of ischemia although there is motion artifact present which makes certain leads difficult to interpret. Core Measures - Anticipated LOS I expect patient to be DC'd or transferred within 96 hours.: Yes
[2019-04-11] MEDS ORDERED: HEPARIN 5,000 UNIT/ML VIAL SUBQ SCH (21:00)
[2019-04-11] MEDS ORDERED: GABAPENTIN 400 MG CAPSULE PO SCH (21:00)
[2019-04-11] MEDS: APIXABAN 5 MG TABLET PO SCH (21:17)
[2019-04-11] MEDS: METOPROLOL TARTRATE 25 MG TABLET PO SCH (21:17)
[2019-04-11] MEDS ORDERED: GABAPENTIN 300 MG CAPSULE ONE (21:20)
[2019-04-11 21:24] LABS: BILIRUBIN,URINE NEGATIVE (NEGATIVE); GLUCOSE, URINE (UA) NEGATIVE (NEGATIVE); KETONES,URINE (UA) NEGATIVE (NEGATIVE); LEUKOCYTE ESTERASE, URINE MODERATE (NEGATIVE); NITRITE,URINE POSITIVE (NEGATIVE); OCCULT BLOOD,URINE TRACE-LYSE (NEGATIVE); PH,URINE 6.5 PH (5.0-7.5); PROTEIN,URINE NEGATIVE (NEGATIVE); UROBILINOGEN,URINE 0.2 (NORMAL) E.U./dL (NORMAL)
[2019-04-11 21:28] LABS: CLARITY,URINE HAZY (CLEAR)
[2019-04-11 21:31] LABS: SQUAMOUS EPITHELIAL CELL,UR FEW Squamous (<= Few); WBC CLUMPS,URINE PRESENT
[2019-04-11 21:32] LABS: BACTERIA,URINE Many /HPF (None Seen)
[2019-04-11] MEDS: NYSTATIN POWDER 15 GM TOP SCH (22:05)
[2019-04-11] MEDS ORDERED: hydrOXYzine PAMOATE 25 MG CAPSULE PO STA (22:48)
--- NOTE | 2019-04-11 23:09 | XRAY Report ---
Reason: chest pain Procedure Date: 04/11/2019 Accession Number: [id number] / [id number] Procedure: XR - Chest 1 View X-Ray CPT Code: 76079 Final Report FULL RESULT: EXAM: CHEST RADIOGRAPHY EXAM DATE: 04/11/2019 04:00 PM. CLINICAL HISTORY: Chest pain. Shortness of breath. COPD. COMPARISON: CHEST 2 VIEW PA/LAT 06/06/2016 3:30 PM. TECHNIQUE: 1 view. FINDINGS: Lungs/Pleura: Pulmonary vascular congestion. Chronic right costophrenic angle blunting. No alveolar consolidation seen. No pneumothorax. Mediastinum: Within exam limitations, heart is mildly enlarged. Aortic atherosclerosis. Other: Osteopenia. IMPRESSION: 1. Cardiomegaly and pulmonary vascular congestion. 2. Chronic right costophrenic angle blunting probably due to scarring. RADIA
[2019-04-12] MEDS: SODIUM CHLORIDE FLUSH 0.9% 10 ML SYRINGE IVP SCH ×4 (01:00→20:58)
[2019-04-12 05:26] LABS: BASOPHILS # (AUTO) 0.1 10^3/uL (0.0-0.1); BASOPHILS % (AUTO) 0.7 %; EOSINOPHILS # (AUTO) 0.2 10^3/uL (0.0-0.7); EOSINOPHILS % (AUTO) 1.2 %; HGB - HEMOGLOBIN 14.7 g/dL (12.0-16.0); LYMPHOCYTES # (AUTO) 1.9 10^3/uL (1.5-3.5); LYMPHOCYTES % (AUTO) 13.4 %; MEAN CORPUSCULAR HEMOGLOBIN 25.5 pg (27.0-31.0); MEAN CORPUSCULAR HGB CONC 30.5 g/dL (32.0-36.0); MEAN CORPUSCULAR VOLUME 83.5 fL (81.0-99.0); MEAN PLATELET VOLUME 10.7 fL (7.9-10.8); MONOCYTES # (AUTO) 1.4 10^3/uL (0.0-1.0); MONOCYTES % (AUTO) 9.7 %; NEUTROPHILS # (AUTO) 10.7 10^3/uL (1.5-6.6); NEUTROPHILS % (AUTO) 74.4 %; PLT - PLATELET COUNT 332 10^3/uL (130-450); RED BLOOD COUNT 5.77 10^6/uL (4.20-5.40); RED CELL DISTRIBUTION WIDTH 17.2 % (12.0-15.0); WHITE BLOOD COUNT 14.4 x10^3/uL (4.8-10.8)
[2019-04-12 05:50] LABS: CALCIUM 9.3 mg/dL (8.5-10.3); CREATININE 0.9 mg/dL (0.4-1.0); MAGNESIUM 2.1 mg/dL (1.7-2.8); PHOSPHORUS 4.5 mg/dL (2.5-4.6)
[2019-04-12] MEDS ORDERED: POTASSIUM CHLORIDE 20 MEQ TABLET PO ONE (08:00)
[2019-04-12] MEDS ORDERED: POTASSIUM CHLORIDE 20 MEQ TABLET PO SCH (08:01)
[2019-04-12] MEDS: IPRATROPIUM 0.2 MG/ML NEB INH PRN ×2 (08:40→20:09)
[2019-04-12] MEDS: ALBUTEROL NEB 2.5 MG/3 ML INH PRN ×2 (08:40→20:10)
[2019-04-12] MEDS: FORMOTEROL FUMARATE NEB 20 MCG/2 ML INH SCH ×2 (08:40→20:10)
[2019-04-12] MEDS: BUDESONIDE 0.5 MG/2 ML NEB INH SCH ×2 (08:40→20:10)
[2019-04-12] MEDS ORDERED: amLODIPine 5 MG TABLET PO SCH (09:00)
[2019-04-12] MEDS: FUROSEMIDE 40 MG/4 ML VIAL IVP SCH (09:01)
[2019-04-12] MEDS: METOPROLOL TARTRATE 25 MG TABLET PO SCH ×2 (09:49→20:57)
[2019-04-12] MEDS: APIXABAN 5 MG TABLET PO SCH ×2 (09:49→20:57)
[2019-04-12] MEDS: hydroCHLOROthiazide 12.5 MG CAPSULE PO SCH (09:49)
[2019-04-12] MEDS: ASPIRIN EC 81 MG TABLET PO SCH (09:49)
[2019-04-12] MEDS: NYSTATIN POWDER 15 GM TOP SCH ×2 (10:00→20:58)
--- NOTE | 2019-04-12 11:59 | PROVIDER PROGRESS NOTE ---
Assessment/Plan - Problem List (1) Atrial fibrillation with rapid ventricular response Assessment/Plan: HR better but still increases with activity. Eliquis was started at admission for high CHADS score Will adjust B-cuco dose and cont telemetry Assess HR with activity Eval for coronary ischemia and untreated TORI, as causes of new Afib, since the TSH is ok (2) Acute diastolic (congestive) heart failure Assessment/Plan: Echo showed a preserved LVEF The cause of volume overload may have been new Afib with RVR or coronary ischemia Continue diuresis, new B-cuco Follow weight and I's and O's and BMP and Mg BIPAP to wean down as tolerated then can be transferred out of ICU (3) Hypokalemia Assessment/Plan: from diuresis Replace and monitor daily BMP (4) Diabetes mellitus, new onset Assessment/Plan: The extensive skin yeast infection and abdominal pannus made the admitting MD suspiscious of DM, accuchecks were ordered. Today an A1c of 7.9 confirms DM. Will change diet to cc, add ss Insulin coverage, start DM reaching, will start Metformin when we are sure no dye imaging will be needed. Liquor Merchant consult (but she is not here until Mon, today is Sat). (5) Hx of coronary artery disease Assessment/Plan: Troponins have ruled her out for acute TN With new Afib, she will need a stress test to assess for cor ischemia as the cause. Continue ASA and statin (6) Obstructive sleep apnea Assessment/Plan: She is not on CPAP but wass on home O2 prn (7) Polycythemia Assessment/Plan: H/H stable currently (8) Skin yeast infection Assessment/Plan: Topical antifungal has been ordered. (9) COPD (chronic obstructive pulmonary disease) Assessment/Plan: No wheezing Continue nebs prn and supplemental O2 (10) Hx of cancer of lung Assessment/Plan: Remote Hx - Current Meds Current Meds: Current Medications Generic Name Dose Route Start Last Admin Trade Name Freq PRN Reason Stop Dose Admin Albuterol 2.5 mg 04/11/19 19:27 04/12/19 08:40 INH 2.5 mg Q4HR PRN Administration Wheezing Apixaban 5 mg 04/11/19 21:00 04/12/19 09:49 Eliquis PO 5 mg BID KARINA Administration Aspirin 81 mg 04/12/19 09:00 04/12/19 09:49 Ecotrin PO 81 mg DAILY KARINA Administration Budesonide 0.5 mg 04/12/19 07:00 04/12/19 08:40 Pulmicort INH 0.5 mg RTBID KARINA Administration Formoterol Fumarate 20 mcg 04/12/19 07:00 04/12/19 08:40 Perforomist INH 20 mcg RTBID KARINA Administration Furosemide 40 mg 04/12/19 09:00 04/12/19 09:01 Lasix Inj 40 Mg Vial IVP 40 mg DAILY KARINA Administration Gabapentin 600 mg 04/11/19 21:00 04/11/19 21:23 Neurontin PO 600 mg QPM KARINA Administration Hydrochlorothiazide 12.5 mg 04/12/19 09:00 04/12/19 09:49 Hydrodiuril PO 12.5 mg DAILY KARINA Administration Ipratropium Crystal 0.5 mg 04/11/19 19:27 04/12/19 08:40 Atrovent INH 0.5 mg Q6HR PRN Administration Wheezing Metoprolol Tartrate 25 mg 04/11/19 21:00 04/12/19 09:49 Lopressor PO 25 mg BID KARINA Administration Nystatin 1 applic 04/11/19 22:00 04/12/19 10:00 Nystop TOP 1 applic BID KARINA Administration Sodium Chloride 10 ml 04/12/19 01:00 04/12/19 09:00 Normal Saline Flush 0.9% IVP 10 ml [id number],[id number],1700 KARINA Administration - Lab Result Fish Bone Diagrams: 04/12/19 05:17 04/12/19 05:17 - Additional Planning My Orders: My Active Orders 04/11/19 Dinner DIET [Low Sodium Diet] [DIET] 04/12/19 07:45 Echo Transthoracic Complete [ECHO] Stat Subjective - Subjective Patient Reports: Feeling Better, Resting Comfortably Nursing Reports: Other (Able to come off BIPAP to nasal cannula and walked to BR) Objective Vital Signs: Vital Signs - 24 hr 04/11/19 04/11/19 04/11/19 15:23 15:41 16:31 Temperature 36.9 C Heart Rate 80 115 H 107 H Heart Rate [ Brachial] Heart Rate [ Monitoring electrodes] Respiratory 26 H 23 18 Rate Blood Pressure 114/81 H 113/83 H 122/87 H Blood Pressure [Right Brachial artery] Blood Pressure [Right Radial artery] O2 Saturation 89 L 94 94 04/11/19 04/11/19 04/11/19 16:50 17:05 17:39 Temperature Heart Rate 122 H 112 H 119 H Heart Rate [ Brachial] Heart Rate [ Monitoring electrodes] Respiratory 24 23 Rate Blood Pressure 122/89 H 137/95 H Blood Pressure [Right Brachial artery] Blood Pressure [Right Radial artery] O2 Saturation 99 92 04/11/19 04/11/19 04/11/19 18:00 18:30 19:00 Temperature Heart Rate 126 H 108 H 121 H Heart Rate [ Brachial] Heart Rate [ Monitoring electrodes] Respiratory 18 23 23 Rate Blood Pressure 137/95 H 158/142 H 146/112 H Blood Pressure [Right Brachial artery] Blood Pressure [Right Radial artery] O2 Saturation 99 95 95 04/11/19 04/11/19 04/11/19 19:30 19:55 20:00 Temperature Heart Rate 127 H 111 H Heart Rate [ 100 Brachial] Heart Rate [ Monitoring electrodes] Respiratory 24 30 H Rate Blood Pressure Blood Pressure 105/69 [Right Brachial artery] Blood Pressure [Right Radial artery] O2 Saturation 95 97 04/11/19 04/11/19 04/11/19 20:13 21:00 21:17 Temperature 36.6 C Heart Rate Heart Rate [ Brachial] Heart Rate [ 106 H Monitoring electrodes] Respiratory 22 Rate Blood Pressure 142/94 H Blood Pressure 142/94 H [Right Brachial artery] Blood Pressure [Right Radial artery] O2 Saturation 94 04/11/19 04/11/19 04/11/19 21:40 22:00 23:10 Temperature Heart Rate 106 H 96 Heart Rate [ Brachial] Heart Rate [ 94 Monitoring electrodes] Respiratory 23 Rate Blood Pressure Blood Pressure 137/102 H [Right Brachial artery] Blood Pressure [Right Radial artery] O2 Saturation 94 04/11/19 04/12/19 04/12/19 23:12 00:00 01:00 Temperature 36.6 C Heart Rate Heart Rate [ Brachial] Heart Rate [ 112 H 98 94 Monitoring electrodes] Respiratory 22 23 24 Rate Blood Pressure Blood Pressure 94/73 102/70 107/72 [Right Brachial artery] Blood Pressure [Right Radial artery] O2 Saturation 92 92 95 04/12/19 04/12/19 04/12/19 01:30 02:00 03:01 Temperature 36.4 C L Heart Rate 107 H Heart Rate [ Brachial] Heart Rate [ 96 92 Monitoring electrodes] Respiratory 17 25 H Rate Blood Pressure Blood Pressure 99/70 111/87 H [Right Brachial artery] Blood Pressure [Right Radial artery] O2 Saturation 93 93 04/12/19 04/12/19 04/12/19 03:35 04:00 05:00 Temperature Heart Rate 101 H Heart Rate [ Brachial] Heart Rate [ 84 81 Monitoring electrodes] Respiratory 22 23 Rate Blood Pressure Blood Pressure 94/70 104/78 [Right Brachial artery] Blood Pressure [Right Radial artery] O2 Saturation 92 93 04/12/19 04/12/19 04/12/19 05:09 06:00 07:00 Temperature Heart Rate 85 Heart Rate [ Brachial] Heart Rate [ 85 73 Monitoring electrodes] Respiratory 21 24 Rate Blood Pressure Blood Pressure 99/64 [Right Brachial artery] Blood Pressure 112/84 H [Right Radial artery] O2 Saturation 95 04/12/19 04/12/19 04/12/19 08:00 08:41 09:00 Temperature Heart Rate 96 Heart Rate [ Brachial] Heart Rate [ 108 H 89 Monitoring electrodes] Respiratory 19 21 27 H Rate Blood Pressure Blood Pressure [Right Brachial artery] Blood Pressure 114/68 95/76 [Right Radial artery] O2 Saturation 94 93 04/12/19 04/12/19 04/12/19 09:49 10:00 11:00 Temperature Heart Rate Heart Rate [ Brachial] Heart Rate [ 93 83 Monitoring electrodes] Respiratory 17 20 Rate Blood Pressure 95/76 Blood Pressure [Right Brachial artery] Blood Pressure 110/71 120/81 H [Right Radial artery] O2 Saturation 94 95 Oxygen O2 Source Nasal cannula Oxygen Flow Rate 2 I&O (Last 24 Hrs): Intake and Output Totals x24h 04/10/19 04/11/19 04/12/19 23:59 23:59 23:59 Intake Total 740 Output Total 350 550 Balance -350 190 General: Alert, Oriented x3 HEENT: Mucous membr. moist/pink Neck: Supple Neuro: Non Focal Cardiovascular: No murmurs Respiratory: Other (Bibasilar rales up 1/2) Abdomen: Soft, No tenderness Extremities: Other (1+edema) - Results Results: Laboratory Results WBC 14.4 x10^3/uL (4.8-10.8) H 04/12/19 05:17 RBC 5.77 10^6/uL (4.20-5.40) H 04/12/19 05:17 Hgb 14.7 g/dL (12.0-16.0) 04/12/19 05:17 Hct 48.2 % (37.0-47.0) H 04/12/19 05:17 MCV 83.5 fL (81.0-99.0) 04/12/19 05:17 MCH 25.5 pg (27.0-31.0) L 04/12/19 05:17 MCHC 30.5 g/dL (32.0-36.0) L 04/12/19 05:17 RDW 17.2 % (12.0-15.0) H 04/12/19 05:17 Plt Count 332 10^3/uL (130-450) 04/12/19 05:17 MPV 10.7 fL (7.9-10.8) 04/12/19 05:17 Neut # (Auto) 10.7 10^3/uL (1.5-6.6) H 04/12/19 05:17 Lymph # (Auto) 1.9 10^3/uL (1.5-3.5) 04/12/19 05:17 [place] # (Auto) 1.4 10^3/uL (0.0-1.0) H 04/12/19 05:17 Eos # (Auto) 0.2 10^3/uL (0.0-0.7) 04/12/19 05:17 Baso # (Auto) 0.1 10^3/uL (0.0-0.1) 04/12/19 05:17 Absolute Nucleated RBC 0.00 x10^3/uL 04/12/19 05:17 Nucleated RBC % 0.0 /100WBC 04/12/19 05:17 Sodium 141 mmol/L (135-145) 04/12/19 05:17 Potassium 3.3 mmol/L (3.5-5.0) L 04/12/19 05:17 Chloride 99 mmol/L (101-111) L 04/12/19 05:17 Carbon Dioxide 32 mmol/L (21-32) 04/12/19 05:17 Anion Gap 10.0 (6-13) 04/12/19 05:17 BUN 29 mg/dL (6-20) H 04/12/19 05:17 Creatinine 0.9 mg/dL (0.4-1.0) 04/12/19 05:17 Estimated GFR (MDRD) 61 (>89) L 04/12/19 05:17 Glucose 180 mg/dL (70-100) H 04/12/19 05:17 POC Whole Bld Glucose 182 mg/dL (70 - 100) H 04/12/19 11:50 Calcium 9.3 mg/dL (8.5-10.3) 04/12/19 05:17 Phosphorus 4.5 mg/dL (2.5-4.6) 04/12/19 05:17 Magnesium 2.1 mg/dL (1.7-2.8) 04/12/19 05:17 Total Bilirubin 0.7 mg/dL (0.2-1.0) 04/11/19 15:55 AST 36 IU/L (10-42) 04/11/19 15:55 ALT 23 IU/L (10-60) 04/11/19 15:55 Alkaline Phosphatase 84 IU/L (42-121) 04/11/19 15:55 Troponin I High Sens 12.8 ng/L (2.3-14.8) 04/11/19 20:01 B-Natriuretic Peptide 300 pg/mL (5-100) H 04/12/19 05:17 Total Protein 7.9 g/dL (6.7-8.2) 04/11/19 15:55 Albumin 3.4 g/dL (3.2-5.5) 04/11/19 15:55 Globulin 4.5 g/dL (2.1-4.2) H 04/11/19 15:55 Albumin/Globulin Ratio 0.8 (1.0-2.2) L 04/11/19 15:55 Lipase 25 U/L (22-51) 04/11/19 15:55 TSH 2.05 uIU/mL (0.34-5.60) 04/12/19 05:17 Urine Color YELLOW 04/11/19 21:20 Urine Clarity HAZY (CLEAR) 04/11/19 21:20 Urine pH 6.5 PH (5.0-7.5) 04/11/19 21:20 Ur Specific Charlo 1.010 (1.002-1.030) 04/11/19 21:20 Urine Protein NEGATIVE mg/dL (NEGATIVE) 04/11/19 21:20 Urine Glucose (UA) NEGATIVE mg/dL (NEGATIVE) 04/11/19 21:20 Urine Ketones NEGATIVE mg/dL (NEGATIVE) 04/11/19 21:20 Urine Occult Blood TRACE-LYSE (NEGATIVE) 04/11/19 21:20 Urine Nitrite POSITIVE (NEGATIVE) H 04/11/19 21:20 Urine Bilirubin NEGATIVE (NEGATIVE) 04/11/19 21:20 Urine Urobilinogen 0.2 (NORMAL) E.U./dL (NORMAL) 04/11/19 21:20 Ur Leukocyte Esterase MODERATE (NEGATIVE) H 04/11/19 21:20 Urine RBC 6-10 /HPF (0-5) H 04/11/19 21:20 Urine WBC >25 /HPF (0-5) H 04/11/19 21:20 Urine WBC Clumps PRESENT 04/11/19 21:20 Ur Squamous Epith Cells FEW Squamous (<= Few) 04/11/19 21:20 Urine Bacteria Many /HPF (None Seen) H 04/11/19 21:20 Urine Culture Comments INDICATED 04/11/19 21:20 Nasal Screen MRSA (PCR) NEGATIVE (NEGATIVE) 04/11/19 19:30 - Procedures Procedures: Procedures REPLACEMENT OF LEFT LENS WITH SYNTH SUB, PERC APPROACH (07/20/16)
--- NOTE | 2019-04-12 12:20 | Ultrasound Report ---
Reason: Dyspnea. Leg edema. Eval for DVT. Procedure Date: 04/12/2019 Accession Number: [id number] / [id number] Procedure: US - Duplex Ext Veins Bilateral CPT Code: Final Report FULL RESULT: EXAM: BILATERAL LOWER EXTREMITY VENOUS ULTRASOUND EXAM DATE: 04/12/2019 07:37 AM. CLINICAL HISTORY: Dyspnea. Leg edema. Eval for DVT. COMPARISON: None. TECHNIQUE: Real-time sonographic vascular imaging was performed by the mix house tender through the lower extremities utilizing both color-flow and Doppler spectral analysis. Multiple strategic partnership representative static images were saved for review. FINDINGS: Right: Common Femoral Vein (CFV): Normal. CFV-GSV Junction: Normal. Profunda Femoral Vein (PFV): Normal. Femoral Vein (FV) Prox: Normal. Femoral Vein (FV) Mid: Normal. Femoral Vein (FV) Dist: Normal. Popliteal Vein: Normal. Posterior Tibial Veins: Normal. Peroneal Veins: Normal. Left: Common Femoral Vein (CFV): Normal. CFV-GSV Junction: Normal. Profunda Femoral Vein (PFV): Normal. Femoral Vein (FV) Prox: Normal. Femoral Vein (FV) Mid: Normal. Femoral Vein (FV) Dist: Normal. Popliteal Vein: Normal. Posterior Tibial Veins: Normal. Peroneal Veins: Normal. Other: None. IMPRESSION: No evidence for deep venous thrombosis in the bilateral lower extremities. RADIA
[2019-04-12 13:21] LABS: HEMOGLOBIN A1C 0.95 g/dL; HEMOGLOBIN A1C % 7.9 % (4.6-6.2)
[2019-04-12] MEDS: INSULIN ASPART 300 UNIT/3 ML PEN SUBQ SCH ×2 (16:09→20:57)
[2019-04-12] MEDS: GABAPENTIN 300 MG CAPSULE PO SCH (20:56)
[2019-04-12] MEDS: ATORVASTATIN 40 MG TABLET PO SCH (20:57)
[2019-04-13 05:18] LABS: BASOPHILS # (AUTO) 0.1 10^3/uL (0.0-0.1); BASOPHILS % (AUTO) 0.7 %; EOSINOPHILS # (AUTO) 0.2 10^3/uL (0.0-0.7); EOSINOPHILS % (AUTO) 1.6 %; HGB - HEMOGLOBIN 15.4 g/dL (12.0-16.0); LYMPHOCYTES # (AUTO) 2.2 10^3/uL (1.5-3.5); LYMPHOCYTES % (AUTO) 17.2 %; MEAN CORPUSCULAR HEMOGLOBIN 25.8 pg (27.0-31.0); MEAN CORPUSCULAR HGB CONC 31.2 g/dL (32.0-36.0); MEAN CORPUSCULAR VOLUME 82.9 fL (81.0-99.0); MEAN PLATELET VOLUME 11.3 fL (7.9-10.8); MONOCYTES % (AUTO) 7.7 %; NEUTROPHILS % (AUTO) 72.1 %; PLT - PLATELET COUNT 291 10^3/uL (130-450); RED BLOOD COUNT 5.96 10^6/uL (4.20-5.40); RED CELL DISTRIBUTION WIDTH 17.2 % (12.0-15.0); WHITE BLOOD COUNT 12.5 x10^3/uL (4.8-10.8)
[2019-04-13 05:24] LABS: CALCIUM 8.8 mg/dL (8.5-10.3); CREATININE 0.7 mg/dL (0.4-1.0); MAGNESIUM 2.1 mg/dL (1.7-2.8)
[2019-04-13] MEDS: BUDESONIDE 0.5 MG/2 ML NEB INH SCH ×2 (07:49→20:26)
[2019-04-13] MEDS: FORMOTEROL FUMARATE NEB 20 MCG/2 ML INH SCH ×2 (07:49→20:26)
[2019-04-13] MEDS: INSULIN ASPART 300 UNIT/3 ML PEN SUBQ SCH ×4 (08:03→20:21)
[2019-04-13] MEDS: hydroCHLOROthiazide 12.5 MG CAPSULE PO SCH (08:05)
[2019-04-13] MEDS: METOPROLOL TARTRATE 25 MG TABLET PO SCH ×2 (08:05→20:15)
[2019-04-13] MEDS: ASPIRIN EC 81 MG TABLET PO SCH (08:05)
[2019-04-13] MEDS: FUROSEMIDE 40 MG/4 ML VIAL IVP SCH (08:05)
[2019-04-13] MEDS: APIXABAN 5 MG TABLET PO SCH ×2 (08:05→20:18)
[2019-04-13] MEDS: SODIUM CHLORIDE FLUSH 0.9% 10 ML SYRINGE IVP SCH ×3 (08:07→20:18)
[2019-04-13] MEDS ORDERED: POTASSIUM CHLORIDE 20 MEQ TABLET PO SCH (08:13)
--- NOTE | 2019-04-13 08:16 | PROVIDER PROGRESS NOTE ---
Assessment/Plan - Problem List (1) Atrial fibrillation with rapid ventricular response Assessment/Plan: HR in 90's at rest Will increase B-cuco further She was already started on Eliquis this admission Will move out of ICU and start PT, also OT given her obesity (2) Acute diastolic (congestive) heart failure Assessment/Plan: She is not in (-) fluid balance. Will increase the iv loop diuretic dose for a day, and she may need the addition of Metalazone tomorrow or daily po Spirinolactone. Change to po Lasix tomorrow Get HR closer to 60 is the goal (3) Hypokalemia Assessment/Plan: Related to diuresis. Replace and monitor BMP daily. (4) Coliform urinary tract infection Assessment/Plan: She had a fever and chills in the evening Gram neg bacteria is growing in her urine cx. Ceftriaxone iv started empirically. Await c&s to adjust antibitic (5) Diabetes mellitus, new onset Assessment/Plan: Metformin to be started today. Cont cc diet and ss Insulin coverage Will order International Marketing Manager to see tomorrow (6) Hx of coronary artery disease Assessment/Plan: She will need eval for cor ischemia, as cause of this exacerbation (7) Obstructive sleep apnea Assessment/Plan: She was not on a home CPAP, only home O2 prn (8) Polycythemia Assessment/Plan: Stable H/H (9) Skin yeast infection Assessment/Plan: On topical management (10) COPD (chronic obstructive pulmonary disease) Assessment/Plan: Nebs prn and steroid inhaler ordered. On n.c. O2 still (11) Hx of cancer of lung Assessment/Plan: She is S/P lobectomy - Current Meds Current Meds: Current Medications Generic Name Dose Route Start Last Admin Trade Name Freq PRN Reason Stop Dose Admin Albuterol 2.5 mg 04/11/19 19:27 04/12/19 20:10 INH 2.5 mg Q4HR PRN Administration Wheezing Apixaban 5 mg 04/11/19 21:00 04/13/19 08:05 Eliquis PO 5 mg BID KARINA Administration Aspirin 81 mg 04/12/19 09:00 04/13/19 08:05 Ecotrin PO 81 mg DAILY KARINA Administration Atorvastatin Calcium 40 mg 04/12/19 21:00 04/12/19 20:57 Lipitor PO 40 mg QPM KARINA Administration Budesonide 0.5 mg 04/12/19 07:00 04/13/19 07:49 Pulmicort INH 0.5 mg RTBID KARINA Administration Formoterol Fumarate 20 mcg 04/12/19 07:00 04/13/19 07:49 Perforomist INH 20 mcg RTBID KARINA Administration Furosemide 40 mg 04/12/19 09:00 04/13/19 08:05 Lasix Inj 40 Mg Vial IVP 40 mg DAILY KARINA Administration Gabapentin 600 mg 04/12/19 21:00 04/12/19 20:56 Neurontin PO 600 mg QPM KARINA Administration Insulin Aspart 1 - 5 unit 04/12/19 17:00 04/13/19 08:03 Novolog SUBQ Not Given 0800,1200,1700,2100 [facility] Protocol Ipratropium [place] 0.5 mg 04/11/19 19:27 04/12/19 20:09 Atrovent INH 0.5 mg Q6HR PRN Administration Wheezing Nystatin 1 applic 04/11/19 22:00 04/12/19 20:58 Nystop TOP 1 applic BID KARINA Administration Sodium Chloride 10 ml 04/12/19 01:00 04/13/19 08:07 Normal Saline Flush 0.9% IVP 10 ml 0100,0900,1700 KARINA Administration - Lab Result Fish Bone Diagrams: 04/14/19 05:32 04/14/19 05:32 - Additional Planning My Orders: My Active Orders 04/12/19 07:45 Echo Transthoracic Complete [ECHO] Stat 04/12/19 13:41 Initiate Hypoglycemia Protocol [RC] .protocol 04/12/19 17:00 Insulin Aspart [NovoLOG] 1 - 5 unit SUBQ 0800,1200,1700,2100 04/12/19 Dinner Carb-controlled Diet [DIET] 04/13/19 08:11 Transfer [Admit \ Transfer \ Status] [RC] .ONCE 04/13/19 08:12 Telemetry- [RC] Q4HR 04/13/19 08:13 Potassium Chloride [K-Dur] 40 meq PO ONCE ONE 04/13/19 09:00 Metoprolol Tartrate [Lopressor] 50 mg PO BID Subjective - Subjective Patient Reports: Feeling Better, Fever Nursing Reports: Other (She has a pur wik, but is also incontinent, therefore I's and O's are inaccurate) Objective Vital Signs: Vital Signs - 24 hr 04/12/19 04/12/19 04/12/19 08:41 09:00 09:49 Temperature Heart Rate 96 Heart Rate [ 89 Monitoring electrodes] Respiratory 21 27 H Rate Blood Pressure 95/76 Blood Pressure 95/76 [Right Radial artery] O2 Saturation 93 04/12/19 04/12/19 04/12/19 10:00 11:00 12:00 Temperature 36.6 C Heart Rate Heart Rate [ 93 83 88 Monitoring electrodes] Respiratory 17 20 22 Rate Blood Pressure Blood Pressure 110/71 120/81 H 124/93 H [Right Radial artery] O2 Saturation 94 95 93 04/12/19 04/12/19 04/12/19 13:00 14:00 15:00 Temperature Heart Rate Heart Rate [ 82 92 94 Monitoring electrodes] Respiratory 25 H 21 27 H Rate Blood Pressure Blood Pressure 95/81 H 97/53 L 114/78 [Right Radial artery] O2 Saturation 95 98 97 04/12/19 04/12/19 04/12/19 16:00 17:00 18:00 Temperature 36.6 C Heart Rate Heart Rate [ 97 100 96 Monitoring electrodes] Respiratory 14 27 H 22 Rate Blood Pressure Blood Pressure 80/48 L 123/91 H 116/87 H [Right Radial artery] O2 Saturation 95 97 94 04/12/19 04/12/19 04/12/19 19:00 19:26 20:00 Temperature 36.8 C Heart Rate Heart Rate [ 97 104 H Monitoring electrodes] Respiratory 20 25 H Rate Blood Pressure Blood Pressure 120/77 118/85 H [Right Radial artery] O2 Saturation 95 95 04/12/19 04/12/19 04/12/19 20:13 20:57 21:00 Temperature Heart Rate 116 H Heart Rate [ 114 H Monitoring electrodes] Respiratory 20 20 Rate Blood Pressure 118/85 H Blood Pressure [Right Radial artery] O2 Saturation 95 04/12/19 04/12/19 04/13/19 22:00 23:00 00:00 Temperature 36.4 C L Heart Rate Heart Rate [ 84 101 H 88 Monitoring electrodes] Respiratory 19 22 22 Rate Blood Pressure Blood Pressure 109/67 106/91 H 97/66 [Right Radial artery] O2 Saturation 96 90 L 04/13/19 04/13/19 04/13/19 01:00 02:00 03:00 Temperature Heart Rate Heart Rate [ 111 H 77 86 Monitoring electrodes] Respiratory 28 H 23 21 Rate Blood Pressure Blood Pressure 108/88 H 91/56 L 97/62 [Right Radial artery] O2 Saturation 94 89 L 04/13/19 04/13/19 04/13/19 04:29 05:00 06:00 Temperature 36.8 C Heart Rate Heart Rate [ 116 H 118 H 97 Monitoring electrodes] Respiratory 22 18 21 Rate Blood Pressure Blood Pressure 119/78 98/72 [Right Radial artery] O2 Saturation 93 94 04/13/19 04/13/19 04/13/19 07:00 07:51 08:00 Temperature 36.4 C L Heart Rate 101 H Heart Rate [ 111 H 110 H Monitoring electrodes] Respiratory 27 H 16 23 Rate Blood Pressure Blood Pressure 118/82 H 127/84 H [Right Radial artery] O2 Saturation 86 L 97 04/13/19 08:05 Temperature Heart Rate Heart Rate [ Monitoring electrodes] Respiratory Rate Blood Pressure 127/84 H Blood Pressure [Right Radial artery] O2 Saturation Oxygen O2 Source Nasal cannula Oxygen Flow Rate 2 I&O (Last 24 Hrs): Intake and Output Totals x24h 04/11/19 04/12/19 04/13/19 23:59 23:59 23:59 Intake Total 1780 700 Output Total 350 1300 300 Balance -350 480 400 General: Alert, Oriented x3 HEENT: Mucous membr. moist/pink Neck: No JVD Neuro: Alert, Non Focal Cardiovascular: Regular rate, No murmurs Respiratory: No respiratory distress, Breath sounds nml Abdomen: Soft Extremities: No edema - Results Results: Laboratory Results WBC 12.5 x10^3/uL (4.8-10.8) H 04/13/19 04:49 RBC 5.96 10^6/uL (4.20-5.40) H 04/13/19 04:49 Hgb 15.4 g/dL (12.0-16.0) 04/13/19 04:49 Hct 49.4 % (37.0-47.0) H 04/13/19 04:49 MCV 82.9 fL (81.0-99.0) 04/13/19 04:49 MCH 25.8 pg (27.0-31.0) L 04/13/19 04:49 MCHC 31.2 g/dL (32.0-36.0) L 04/13/19 04:49 RDW 17.2 % (12.0-15.0) H 04/13/19 04:49 Plt Count 291 10^3/uL (130-450) 04/13/19 04:49 MPV 11.3 fL (7.9-10.8) H 04/13/19 04:49 Neut # (Auto) 9.0 10^3/uL (1.5-6.6) H 04/13/19 04:49 Lymph # (Auto) 2.2 10^3/uL (1.5-3.5) 04/13/19 04:49 [place] # (Auto) 1.0 10^3/uL (0.0-1.0) 04/13/19 04:49 Eos # (Auto) 0.2 10^3/uL (0.0-0.7) 04/13/19 04:49 Baso # (Auto) 0.1 10^3/uL (0.0-0.1) 04/13/19 04:49 Absolute Nucleated RBC 0.00 x10^3/uL 04/13/19 04:49 Nucleated RBC % 0.0 /100WBC 04/13/19 04:49 Sodium 140 mmol/L (135-145) 04/13/19 04:49 Potassium 3.5 mmol/L (3.5-5.0) 04/13/19 04:49 Chloride 97 mmol/L (101-111) L 04/13/19 04:49 Carbon Dioxide 32 mmol/L (21-32) 04/13/19 04:49 Anion Gap 11.0 (6-13) 04/13/19 04:49 BUN 27 mg/dL (6-20) H 04/13/19 04:49 Creatinine 0.7 mg/dL (0.4-1.0) 04/13/19 04:49 Estimated GFR (MDRD) 81 (>89) L 04/13/19 04:49 Glucose 150 mg/dL (70-100) H 04/13/19 04:49 POC Whole Bld Glucose 135 mg/dL (70 - 100) H 04/13/19 07:49 Glycated Hemoglobin 7.9 % (4.6-6.2) H 04/12/19 05:17 Estim Average Glucose 180 (70-100) H 04/12/19 05:17 Calcium 8.8 mg/dL (8.5-10.3) 04/13/19 04:49 Phosphorus 4.5 mg/dL (2.5-4.6) 04/12/19 05:17 Magnesium 2.1 mg/dL (1.7-2.8) 04/13/19 04:49 Total Bilirubin 0.7 mg/dL (0.2-1.0) 04/11/19 15:55 AST 36 IU/L (10-42) 04/11/19 15:55 ALT 23 IU/L (10-60) 04/11/19 15:55 Alkaline Phosphatase 84 IU/L (42-121) 04/11/19 15:55 Troponin I High Sens 12.8 ng/L (2.3-14.8) 04/11/19 20:01 B-Natriuretic Peptide 300 pg/mL (5-100) H 04/12/19 05:17 Total Protein 7.9 g/dL (6.7-8.2) 04/11/19 15:55 Albumin 3.4 g/dL (3.2-5.5) 04/11/19 15:55 Globulin 4.5 g/dL (2.1-4.2) H 04/11/19 15:55 Albumin/Globulin Ratio 0.8 (1.0-2.2) L 04/11/19 15:55 Lipase 25 U/L (22-51) 04/11/19 15:55 TSH 2.05 uIU/mL (0.34-5.60) 04/12/19 05:17 Urine Color YELLOW 04/11/19 21:20 Urine Clarity HAZY (CLEAR) 04/11/19 21:20 Urine pH 6.5 PH (5.0-7.5) 04/11/19 21:20 Ur Specific [place] 1.010 (1.002-1.030) 04/11/19 21:20 Urine Protein NEGATIVE mg/dL (NEGATIVE) 04/11/19 21:20 Urine Glucose (UA) NEGATIVE mg/dL (NEGATIVE) 04/11/19 21:20 Urine Ketones NEGATIVE mg/dL (NEGATIVE) 04/11/19 21:20 Urine Occult Blood TRACE-LYSE (NEGATIVE) 04/11/19 21:20 Urine Nitrite POSITIVE (NEGATIVE) H 04/11/19 21:20 Urine Bilirubin NEGATIVE (NEGATIVE) 04/11/19 21:20 Urine Urobilinogen 0.2 (NORMAL) E.U./dL (NORMAL) 04/11/19 21:20 Ur Leukocyte Esterase MODERATE (NEGATIVE) H 04/11/19 21:20 Urine RBC 6-10 /HPF (0-5) H 04/11/19 21:20 Urine WBC >25 /HPF (0-5) H 04/11/19 21:20 Urine WBC Clumps PRESENT 04/11/19 21:20 Ur Squamous Epith Cells FEW Squamous (<= Few) 04/11/19 21:20 Urine Bacteria Many /HPF (None Seen) H 04/11/19 21:20 Urine Culture Comments INDICATED 04/11/19 21:20 Nasal Screen MRSA (PCR) NEGATIVE (NEGATIVE) 04/11/19 19:30 - Procedures Procedures: Procedures REPLACEMENT OF LEFT LENS WITH SYNTH SUB, PERC APPROACH (07/20/16)
[2019-04-13] MEDS ORDERED: SODIUM CHLORIDE 0.9% 500 ML ONE (08:52)
[2019-04-13] MEDS ORDERED: METOPROLOL TARTRATE 25 MG TABLET PO SCH ×2 (09:00→21:00)
[2019-04-13] MEDS: cefTRIAXone 1 GM in SODIUM CHLORIDE 0.9% MINIBAG 100 ML IV SCH (09:03)
[2019-04-13] MEDS: NYSTATIN POWDER 15 GM TOP SCH ×2 (09:14→20:19)
[2019-04-13] MEDS: metFORMIN 500 MG TABLET PO SCH (17:04)
[2019-04-13] MEDS: ATORVASTATIN 40 MG TABLET PO SCH (20:18)
[2019-04-13] MEDS: GABAPENTIN 300 MG CAPSULE PO SCH (20:18)
[2019-04-13] MEDS: IPRATROPIUM 0.2 MG/ML NEB INH PRN (20:26)
[2019-04-13] MEDS: ALBUTEROL NEB 2.5 MG/3 ML INH PRN (20:26)
[2019-04-13] MEDS ORDERED: FUROSEMIDE 40 MG/4 ML VIAL IVP SCH (21:00)
[2019-04-14 05:57] LABS: BASOPHILS # (AUTO) 0.1 10^3/uL (0.0-0.1); BASOPHILS % (AUTO) 0.5 %; EOSINOPHILS # (AUTO) 0.4 10^3/uL (0.0-0.7); EOSINOPHILS % (AUTO) 2.7 %; HGB - HEMOGLOBIN 14.7 g/dL (12.0-16.0); LYMPHOCYTES % (AUTO) 15.2 %; MEAN CORPUSCULAR HGB CONC 31.3 g/dL (32.0-36.0); MEAN PLATELET VOLUME 11.2 fL (7.9-10.8); MONOCYTES # (AUTO) 1.3 10^3/uL (0.0-1.0); MONOCYTES % (AUTO) 10.1 %; NEUTROPHILS # (AUTO) 9.1 10^3/uL (1.5-6.6); NEUTROPHILS % (AUTO) 70.8 %; PLT - PLATELET COUNT 315 10^3/uL (130-450); RED BLOOD COUNT 5.66 10^6/uL (4.20-5.40); RED CELL DISTRIBUTION WIDTH 16.7 % (12.0-15.0); WHITE BLOOD COUNT 12.9 x10^3/uL (4.8-10.8)
[2019-04-14 06:06] LABS: CALCIUM 8.5 mg/dL (8.5-10.3); CREATININE 0.7 mg/dL (0.4-1.0); MAGNESIUM 2.2 mg/dL (1.7-2.8)
[2019-04-14] MEDS: ALBUTEROL NEB 2.5 MG/3 ML INH PRN ×2 (07:31→21:42)
[2019-04-14] MEDS: BUDESONIDE 0.5 MG/2 ML NEB INH SCH ×2 (07:31→21:43)
[2019-04-14] MEDS: FORMOTEROL FUMARATE NEB 20 MCG/2 ML INH SCH ×2 (07:31→21:43)
[2019-04-14] MEDS: IPRATROPIUM 0.2 MG/ML NEB INH PRN ×2 (07:31→21:42)
[2019-04-14] MEDS: INSULIN ASPART 300 UNIT/3 ML PEN SUBQ SCH ×4 (08:27→21:20)
[2019-04-14] MEDS: metFORMIN 500 MG TABLET PO SCH ×2 (08:29→17:06)
[2019-04-14] MEDS: cefTRIAXone 1 GM in SODIUM CHLORIDE 0.9% MINIBAG 100 ML IV SCH (08:31)
[2019-04-14] MEDS: APIXABAN 5 MG TABLET PO SCH ×2 (08:32→21:27)
[2019-04-14] MEDS: ASPIRIN EC 81 MG TABLET PO SCH (08:32)
[2019-04-14] MEDS: FUROSEMIDE 40 MG TABLET PO SCH (08:32)
[2019-04-14] MEDS: METOPROLOL TARTRATE 25 MG TABLET PO SCH ×2 (08:33→21:27)
[2019-04-14] MEDS: SODIUM CHLORIDE FLUSH 0.9% 10 ML SYRINGE IVP SCH ×3 (08:34→23:52)
[2019-04-14] MEDS: NYSTATIN POWDER 15 GM TOP SCH ×2 (08:34→21:27)
--- NOTE | 2019-04-14 12:00 | PROVIDER PROGRESS NOTE ---
Assessment/Plan - Problem List (1) Acute diastolic (congestive) heart failure Assessment/Plan: Echo done this admission showed normal LVEF and therefore diastolic dysfunction from RVR was the suspected etiology. Lasix iv has been transitioned to daily po dosing. With this and her higher Metoprolol, her BP is lower and her home HCTZ and Amlodipine were stopped. Her leg cramps are likely due to aggressive diuresis. Will give oral Mg daily, empirically. (2) Atrial fibrillation with rapid ventricular response Assessment/Plan: HR control is better, on escalating doses of Metoprolol Succ Eliquis was already newly started this admission. (3) Diarrhea Assessment/Plan: Started today, as she started po antibx for UTI and new Metformin. Will send stool for C diff, since she was on iv antibx in the ICU (4) Diabetes mellitus, new onset Assessment/Plan: Her admission A1c was 7.9 and thus she is a newly Dx diabetic. She was put on carb-controlled diet and ss Insulin. She will start po Metformin. A consult for Diabetic Teaching was requested, there were no staff available to do that over the past 2 days (over Sat and Sun). (5) E. coli UTI (urinary tract infection) Assessment/Plan: Sensitivities are done and the Ecoli is sens to everything. Will stop iv Ceftriaxone, which she got for 2 days, and start TMP/Sulfa (6) Hypokalemia Assessment/Plan: From aggressive diuresis. Replace and follow BMP daily. (7) Hx of coronary artery disease Assessment/Plan: She will need a W/U of worsening CAD, as cause of this presentation of new Afib and diastolic heart failure (8) Obstructive sleep apnea Assessment/Plan: She was not on a home device, only prn home O2, for this Dx (9) Polycythemia Assessment/Plan: She has needed outpt phlebotomy in tghe past. H/H stable here (10) Skin yeast infection Assessment/Plan: The groin area was noted by admission RN, and DM was suspected, has been confirmed with elevated A1c. Topical treatment has been ordered. (11) COPD (chronic obstructive pulmonary disease) Assessment/Plan: She is on nebs prn, but no steroids, as there was no COPD exacerbation this admission. (12) Hx of cancer of lung Assessment/Plan: She had a remote lobectomy - Current Meds Current Meds: Current Medications Generic Name Dose Route Start Last Admin Trade Name Freq PRN Reason Stop Dose Admin Albuterol 2.5 mg 04/11/19 19:27 04/14/19 07:31 INH 2.5 mg Q4HR PRN Administration Wheezing Apixaban 5 mg 04/11/19 21:00 04/14/19 08:32 Eliquis PO 5 mg BID KARINA Administration Aspirin 81 mg 04/12/19 09:00 04/14/19 08:32 Ecotrin PO 81 mg DAILY KARINA Administration Atorvastatin Calcium 40 mg 04/12/19 21:00 04/13/19 20:18 Lipitor PO 40 mg QPM KARINA Administration Budesonide 0.5 mg 04/12/19 07:00 04/14/19 07:31 Pulmicort INH 0.5 mg RTBID KARINA Administration Formoterol Fumarate 20 mcg 04/12/19 07:00 04/14/19 07:31 Perforomist INH 20 mcg RTBID KARINA Administration Furosemide 40 mg 04/14/19 09:00 04/14/19 08:32 Lasix PO 40 mg DAILY KARINA Administration Gabapentin 600 mg 04/12/19 21:00 04/13/19 20:18 Neurontin PO 600 mg QPM KARINA Administration Ceftriaxone Sodium 1 gm/ 100 mls @ 200 mls/hr 04/13/19 09:00 04/14/19 09:26 Sodium Chloride IV Infused DAILY KARINA Infusion Insulin Aspart 1 - 5 unit 04/12/19 17:00 04/14/19 08:27 Novolog SUBQ 1 unit 0800,1200,1700,2100 KARINA Administration Protocol Ipratropium [place] 0.5 mg 04/11/19 19:27 04/14/19 07:31 Atrovent INH 0.5 mg Q6HR PRN Administration Wheezing Metformin HCl 500 mg 04/13/19 17:00 04/14/19 08:29 Glucophage PO 500 mg BIDWM KARINA Administration Metoprolol Tartrate 75 mg 04/13/19 21:00 04/14/19 08:33 Lopressor PO 75 mg BID KARINA Administration Nystatin 1 applic 04/11/19 22:00 04/14/19 08:34 Nystop TOP 1 applic BID KARINA Administration Sodium Chloride 10 ml 04/12/19 01:00 04/14/19 08:34 Normal Saline Flush 0.9% IVP 10 ml 0100,0900,1700 KARINA Administration Sodium Chloride 10 ml 04/11/19 19:27 04/14/19 00:23 Normal Saline Flush 0.9% IVP 10 ml PRN PRN Administration NEEDED PER PROVIDER ORDERS - Lab Result Fish Bone Diagrams: 04/14/19 05:32 04/14/19 05:32 - Additional Planning My Orders: My Active Orders 04/13/19 17:00 metFORMIN [Glucophage] 500 mg PO BIDWM 04/13/19 21:00 Metoprolol Tartrate [Lopressor] 75 mg PO BID 04/14/19 09:00 Furosemide [Lasix] 40 mg PO DAILY Subjective - Subjective Patient Reports: Other (She had severe legcramps after starting walking with PT.) Objective Vital Signs: Vital Signs - 24 hr 04/13/19 04/13/19 04/13/19 13:00 16:00 16:43 Temperature 36.5 C 36.5 C Heart Rate 96 Heart Rate [ 96 Monitoring electrodes] Respiratory 22 22 Rate Blood Pressure Blood Pressure [Left Brachial artery] Blood Pressure 122/78 [Right Radial artery] O2 Saturation 96 96 04/13/19 04/13/19 04/13/19 17:00 19:05 20:15 Temperature 36.7 C Heart Rate Heart Rate [ 108 H 128 H Monitoring electrodes] Respiratory 19 29 H Rate Blood Pressure 114/81 H Blood Pressure [Left Brachial artery] Blood Pressure 118/76 128/79 [Right Radial artery] O2 Saturation 98 94 04/13/19 04/13/19 04/14/19 20:29 21:00 00:26 Temperature 36.5 C 36.3 C L Heart Rate 109 H Heart Rate [ 93 70 Monitoring electrodes] Respiratory 20 18 16 Rate Blood Pressure Blood Pressure 110/64 [Left Brachial artery] Blood Pressure 105/62 [Right Radial artery] O2 Saturation 93 92 04/14/19 04/14/19 04/14/19 05:45 07:25 07:34 Temperature 36.5 C 36.2 C L Heart Rate 80 Heart Rate [ 81 70 Monitoring electrodes] Respiratory 18 20 20 Rate Blood Pressure Blood Pressure [Left Brachial artery] Blood Pressure 100/50 L 109/87 H [Right Radial artery] O2 Saturation 91 L 95 04/14/19 04/14/19 08:33 11:13 Temperature 36.6 C Heart Rate Heart Rate [ 74 Monitoring electrodes] Respiratory 18 Rate Blood Pressure 109/87 H Blood Pressure [Left Brachial artery] Blood Pressure 112/56 L [Right Radial artery] O2 Saturation 95 Oxygen O2 Source Nasal cannula Oxygen Flow Rate 2 I&O (Last 24 Hrs): Intake and Output Totals x24h 04/12/19 04/13/19 04/14/19 23:59 23:59 23:59 Intake Total 1780 1380 1630 Output Total 1300 1401 650 Balance 480 -21 980 General: Alert, Oriented x3 HEENT: Mucous membr. moist/pink Neck: Supple, No JVD Neuro: Alert, Non Focal Cardiovascular: No murmurs, Other (Irreg) Respiratory: No respiratory distress, Breath sounds nml Abdomen: Soft, Other (Obese with pannus) Extremities: No edema - Results Results: Laboratory Results WBC 12.9 x10^3/uL (4.8-10.8) H 04/14/19 05:32 RBC 5.66 10^6/uL (4.20-5.40) H 04/14/19 05:32 Hgb 14.7 g/dL (12.0-16.0) 04/14/19 05:32 Hct 47.0 % (37.0-47.0) 04/14/19 05:32 MCV 83.0 fL (81.0-99.0) 04/14/19 05:32 MCH 26.0 pg (27.0-31.0) L 04/14/19 05:32 MCHC 31.3 g/dL (32.0-36.0) L 04/14/19 05:32 RDW 16.7 % (12.0-15.0) H 04/14/19 05:32 Plt Count 315 10^3/uL (130-450) 04/14/19 05:32 MPV 11.2 fL (7.9-10.8) H 04/14/19 05:32 Neut # (Auto) 9.1 10^3/uL (1.5-6.6) H 04/14/19 05:32 Lymph # (Auto) 2.0 10^3/uL (1.5-3.5) 04/14/19 05:32 [place] # (Auto) 1.3 10^3/uL (0.0-1.0) H 04/14/19 05:32 Eos # (Auto) 0.4 10^3/uL (0.0-0.7) 04/14/19 05:32 Baso # (Auto) 0.1 10^3/uL (0.0-0.1) 04/14/19 05:32 Absolute Nucleated RBC 0.00 x10^3/uL 04/14/19 05:32 Nucleated RBC % 0.0 /100WBC 04/14/19 05:32 Sodium 140 mmol/L (135-145) 04/14/19 05:32 Potassium 3.8 mmol/L (3.5-5.0) 04/14/19 05:32 Chloride 97 mmol/L (101-111) L 04/14/19 05:32 Carbon Dioxide 33 mmol/L (21-32) H 04/14/19 05:32 Anion Gap 10.0 (6-13) 04/14/19 05:32 BUN 26 mg/dL (6-20) H 04/14/19 05:32 Creatinine 0.7 mg/dL (0.4-1.0) 04/14/19 05:32 Estimated GFR (MDRD) 81 (>89) L 04/14/19 05:32 Glucose 134 mg/dL (70-100) H 04/14/19 05:32 POC Whole Bld Glucose 162 mg/dL (70 - 100) H 04/14/19 11:02 Glycated Hemoglobin 7.9 % (4.6-6.2) H 04/12/19 05:17 Estim Average Glucose 180 (70-100) H 04/12/19 05:17 Calcium 8.5 mg/dL (8.5-10.3) 04/14/19 05:32 Phosphorus 4.5 mg/dL (2.5-4.6) 04/12/19 05:17 Magnesium 2.2 mg/dL (1.7-2.8) 04/14/19 05:32 Total Bilirubin 0.7 mg/dL (0.2-1.0) 04/11/19 15:55 AST 36 IU/L (10-42) 04/11/19 15:55 ALT 23 IU/L (10-60) 04/11/19 15:55 Alkaline Phosphatase 84 IU/L (42-121) 04/11/19 15:55 Troponin I High Sens 12.8 ng/L (2.3-14.8) 04/11/19 20:01 B-Natriuretic Peptide 300 pg/mL (5-100) H 04/12/19 05:17 Total Protein 7.9 g/dL (6.7-8.2) 04/11/19 15:55 Albumin 3.4 g/dL (3.2-5.5) 04/11/19 15:55 Globulin 4.5 g/dL (2.1-4.2) H 04/11/19 15:55 Albumin/Globulin Ratio 0.8 (1.0-2.2) L 04/11/19 15:55 Lipase 25 U/L (22-51) 04/11/19 15:55 TSH 2.05 uIU/mL (0.34-5.60) 04/12/19 05:17 Urine Color YELLOW 04/11/19 21:20 Urine Clarity HAZY (CLEAR) 04/11/19 21:20 Urine pH 6.5 PH (5.0-7.5) 04/11/19 21:20 Ur Specific [place] 1.010 (1.002-1.030) 04/11/19 21:20 Urine Protein NEGATIVE mg/dL (NEGATIVE) 04/11/19 21:20 Urine Glucose (UA) NEGATIVE mg/dL (NEGATIVE) 04/11/19 21:20 Urine Ketones NEGATIVE mg/dL (NEGATIVE) 04/11/19 21:20 Urine Occult Blood TRACE-LYSE (NEGATIVE) 04/11/19 21:20 Urine Nitrite POSITIVE (NEGATIVE) H 04/11/19 21:20 Urine Bilirubin NEGATIVE (NEGATIVE) 04/11/19 21:20 Urine Urobilinogen 0.2 (NORMAL) E.U./dL (NORMAL) 04/11/19 21:20 Ur Leukocyte Esterase MODERATE (NEGATIVE) H 04/11/19 21:20 Urine RBC 6-10 /HPF (0-5) H 04/11/19 21:20 Urine WBC >25 /HPF (0-5) H 04/11/19 21:20 Urine WBC Clumps PRESENT 04/11/19 21:20 Ur Squamous Epith Cells FEW Squamous (<= Few) 04/11/19 21:20 Urine Bacteria Many /HPF (None Seen) H 04/11/19 21:20 Urine Culture Comments INDICATED 04/11/19 21:20 Nasal Screen MRSA (PCR) NEGATIVE (NEGATIVE) 04/11/19 19:30 - Procedures Procedures: Procedures REPLACEMENT OF LEFT LENS WITH SYNTH SUB, PERC APPROACH (07/20/16)
[2019-04-14] MEDS: MAGNESIUM OXIDE 400 MG TABLET PO SCH (21:26)
[2019-04-14] MEDS: GABAPENTIN 300 MG CAPSULE PO SCH (21:27)
[2019-04-14] MEDS: SULFAMETH/TRIMETH DS 800/160 MG TABLET PO SCH (21:27)
[2019-04-14] MEDS: ATORVASTATIN 40 MG TABLET PO SCH (21:27)
[2019-04-15 07:22] LABS: BASOPHILS # (AUTO) 0.1 10^3/uL (0.0-0.1); BASOPHILS % (AUTO) 0.6 %; EOSINOPHILS # (AUTO) 0.3 10^3/uL (0.0-0.7); EOSINOPHILS % (AUTO) 2.5 %; HGB - HEMOGLOBIN 14.8 g/dL (12.0-16.0); LYMPHOCYTES # (AUTO) 1.5 10^3/uL (1.5-3.5); LYMPHOCYTES % (AUTO) 12.2 %; MEAN CORPUSCULAR HEMOGLOBIN 25.8 pg (27.0-31.0); MEAN CORPUSCULAR VOLUME 83.3 fL (81.0-99.0); MEAN PLATELET VOLUME 10.8 fL (7.9-10.8); MONOCYTES # (AUTO) 1.1 10^3/uL (0.0-1.0); MONOCYTES % (AUTO) 9.4 %; NEUTROPHILS % (AUTO) 74.7 %; PLT - PLATELET COUNT 281 10^3/uL (130-450); RED BLOOD COUNT 5.74 10^6/uL (4.20-5.40); RED CELL DISTRIBUTION WIDTH 16.1 % (12.0-15.0); WHITE BLOOD COUNT 12.1 x10^3/uL (4.8-10.8)
[2019-04-15 07:45] LABS: CALCIUM 8.3 mg/dL (8.5-10.3); CREATININE 0.6 mg/dL (0.4-1.0); MAGNESIUM 2.2 mg/dL (1.7-2.8)
[2019-04-15 08:06] VITALS: BP 105/68
[2019-04-15] MEDS: FORMOTEROL FUMARATE NEB 20 MCG/2 ML INH SCH (08:29)
[2019-04-15] MEDS: BUDESONIDE 0.5 MG/2 ML NEB INH SCH (08:29)
[2019-04-15] MEDS: SODIUM CHLORIDE FLUSH 0.9% 10 ML SYRINGE IVP SCH (09:12)
[2019-04-15] MEDS: MAGNESIUM OXIDE 400 MG TABLET PO SCH (09:14)
[2019-04-15] MEDS: SULFAMETH/TRIMETH DS 800/160 MG TABLET PO SCH (09:14)
[2019-04-15] MEDS: METOPROLOL TARTRATE 25 MG TABLET PO SCH (09:14)
[2019-04-15] MEDS: FUROSEMIDE 40 MG TABLET PO SCH (09:15)
[2019-04-15] MEDS: APIXABAN 5 MG TABLET PO SCH (09:16)
[2019-04-15] MEDS: metFORMIN 500 MG TABLET PO SCH (09:16)
[2019-04-15] MEDS: NYSTATIN POWDER 15 GM TOP SCH (09:17)
[2019-04-15] MEDS: ASPIRIN EC 81 MG TABLET PO SCH (09:19)
[2019-04-15] MEDS: INSULIN ASPART 300 UNIT/3 ML PEN SUBQ SCH ×2 (09:21→12:04)
--- NOTE | 2019-04-15 12:33 | Discharge Plan ---
Discharge Plan Problem Reviewed?: Yes Disposition: Home, Self Care Condition: Stable Prescriptions: Albuterol 2.5 mg INH Q4HR PRN #50 neb PRN Reason: Wheezing Ipratropium [Atrovent] 0.5 mg INH Q6HR PRN #40 neb PRN Reason: Wheezing Apixaban [Eliquis] 5 mg PO BID #20 tablet Atorvastatin [Lipitor] 20 mg PO QPM #20 tablet Blood Sugar Diagnostic [Glucometer Strips] 1 each QID #50 strip Blood-Glucose Meter [Glucometer] 1 each QID #1 each Furosemide [Lasix] 20 mg PO DAILY #10 tablet Lancets 1 each QID #50 each metFORMIN [Glucophage] 500 mg PO BIDWM #20 tablet Metoprolol Tartrate [Lopressor] 75 mg PO BID #60 tablet Sulfamethox/Trimeth 800/160 [Bactrim Ds] 1 tab PO BID #10 tablet Diet: Diabetic Activity Restrictions: Activity as Tolerated Shower Restrictions: No (fall precaution) Instruction Topics: Apixaban oral tablets, Metoprolol tablets, Atrial Fibrillation, Log Blood Sugar, Hypoglycemia, Diabetes Type 2 Coping, Metformin tablets, COPD, Atorvastatin tablets, Furosemide tablets, Sulfamethoxazole Trimethoprim SMX-TMP tablets Health Concerns: COPD, Afib, DM2, diastolic heart failure, UTI Plan of Treatment: you are prescribed portable oxygen, Duoneb, advise you followup RT instruction to safely use home oxygen Your Metoprolol dosage is increased to 75 mg bid to control HR, and Eliquis is prescribed for your afib. you are found to have new diagnosis of DM2, A1C is 7.9. Metformin is prescribed to you, glucometer, strip and lancet are prescribed to you. advise you followup RN instruction to use these device, and followup your PCP continue management your DM2. Lower dosage of Lasix is prescribed for your fluid overload. Bactrim is prescribed for your UTI treatment course. Care Goals: stabilization and improvement of your medical conditions. Assessment: discussed with you about your care plan, and answered your questions, and you agreed the care plan. Additional Instructions or Follow Up instructions: you may followup your PCP in one week, followup packer fuser as out-pt. should your symptoms return or worsen, you may present ER or call 911 for help. Follow-Up Care: [facility], [facility], [facility], [facility] - Diabetes Ed No Smoking: If you smoke, Please STOP! Call for help. Follow-up with: Eve Miles PA [Primary Care Provider] -
--- NOTE | 2019-04-15 13:26 | DISCHARGE SUMMARY ---
Discharge Summary Admit Date: 04/11/19 Discharge Date: 04/15/19 Discharging Provider: MANRIQUEZ Primary Care Provider: Dr. Miles Condition at Discharge: Stable Discharge Disposition: 01 Home, Self Care Discharge Facility Name: home - DIAGNOSES Admission Diagnoses: (1) Dyspnea (2) Atrial fibrillation with rapid ventricular response (3) COPD (chronic obstructive pulmonary disease) (4) Obstructive sleep apnea (5) Hypertension (6) Coronary artery disease (7) Polycythemia Discharge Diagnoses with Status of Each Condition: (1) Acute diastolic (congestive) heart failure stable. pt had ECHO revealed normal EF but pt present fluid overload in ad mission. I agreed Dr. Shelby Ramos's diagnosis for pt. pt is prescribed lower dosage of Lasix. Since pt's potassium is stable in hospital, pt is not prescribed potassium, pt is advised to followup her PCP continue to management. (2) Atrial fibrillation with rapid ventricular response stable. pt is prescribed Eliquis, and her home Metoprolol is increased to 75 mg bid (3) Diarrhea resolved (4) Diabetes mellitus, new onset stable. pt had A1C 7.9. pt is prescribed Metformin, glucometer, strip and lancet. pt is advised to followup her PCP continue management of her new DM2. pt had new diagnosis diabetes education in hospital, and have diabetes education consultation in hospital (5) E. coli UTI (urinary tract infection) pt was found to have UTI, has positive Ecoli in UA culture. pt is prescribed bactrim according to UA culture sensitivity study. (6) Hypokalemia resolved (7) Hx of coronary artery disease stable. 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 (8) Obstructive sleep apnea stable, followup PCP (9) Polycythemia stable, followup his PCP management (10) Skin yeast infection resolved (11) COPD (chronic obstructive pulmonary disease) pt currently prescribed continuous home oxygen at 2 lpm at rest and 3 lpm with exertion. pt is requesting portable oxygen for travel outside the home and for stationary use in home due to bedroom being too far away from stationary concentrator. I am submitting order for portable oxygen concentrator. pt also purchased nebulizer on her own and is requesting tubing and supplies for her home nebulizer. pt is prescribed portable concentrated oxygen tank, pt is prescribed albuterol, atrovent PRN, continue home advair. (12) Hx of cancer of lung stable - HPI History of Present Illness: refer from Dr. costa's HPI on 04/11/19 This is a 78-year-old female with a past medical history significant for COPD with oxygen use as needed, obstructive sleep apnea, polycythemia, neuropathy, hypertension, coronary artery disease with stenting in the past who presents today complaining of worsening shortness of breath over the past week. She states her symptoms have progressively become more severe. She has associated orthopnea and worsening lower extremity edema over the past week. Reports a mild nonproductive cough. Denies fevers but reports chills. She has been using her Advair and albuterol more frequently this past week with improvement in her symptoms. She reports no sick contacts. She did not get a flu shot this year. She reports no history of heart failure. She did have a stent placed over 10 years ago in [place] but denies chest pain at this time. She denies a history of atrial fibrillation. Denies having palpitations. She reports no bleeding history. She does have polycythemia and gets monthly phlebotomies. In the emergency department, she was initially hypoxic to 89% on room air. She is found to be in atrial fibrillation with rates in the 120s. She is given Lasix 40 mg IV and placed on BiPAP given her respiratory status. Her labs did reveal a white count of 16.1 with a left shift. Her initial troponin was negative. BNP was 370. Rest of her labs unremarkable. Given her respiratory symptoms and requirement of BiPAP, medicine was consulted for admission. I did discuss with the patient regarding goals of care and she would like to be a DNR. We also discussed the possibility of intubation if deemed necessary and she also declined that. - HOSPITAL COURSE Hospital Course: pt was admitted for complaining of worsening shortness of breath. pt was found to have COPD exacerbation, afib with RVR, diastolic heart failure, and new DM diagnosis with A1C 7.9 and UTI. pt was treated with antibiotics for UTI, RT treatment for COPD, increase metoprolol to control of HR and plus Eliquis, lasix for heart failure and fluid overload, insulin for DM. after treatment, pt is hemodynamic stable. the detail hospital course is as the below: (1) Acute diastolic (congestive) heart failure stable. pt had ECHO revealed normal EF but pt present fluid overload in admission. I agreed Dr. Shelby Ramos's diagnosis for pt. pt is prescribed lower dosage of Lasix. Since pt's potassium is stable in hospital, pt is not prescribed potassium, pt is advised to followup her PCP continue to management. (2) Atrial fibrillation with rapid ventricular response stable. pt is prescribed Eliquis, and her home Metoprolol is increased to 75 mg bid (3) Diarrhea resolved (4) Diabetes mellitus, new onset stable. pt had A1C 7.9. pt is prescribed Metformin, glucometer, strip and lancet. pt is advised to followup her PCP continue management of her new DM2. pt had new diagnosis diabetes education in hospital, and have diabetes education consultation in hospital (5) E. coli UTI (urinary tract infection) pt was found to have UTI, has positive Ecoli in UA culture. pt is prescribed bactrim according to UA culture sensitivity study. (6) Hypokalemia resolved (7) Hx of coronary artery disease stable. 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 (8) Obstructive sleep apnea stable, followup PCP (9) Polycythemia stable, followup his PCP management (10) Skin yeast infection resolved (11) COPD (chronic obstructive pulmonary disease) pt currently prescribed continuous home oxygen at 2 lpm at rest and 3 lpm with exertion. pt is requesting portable oxygen for travel outside the home and for stationary use in home due to bedroom being too far away from stationary concentrator. I am submitting order for portable oxygen concentrator. pt also purchased nebulizer on her own and is requesting tubing and supplies for her home nebulizer. pt is prescribed portable concentrated oxygen tank, pt is prescribed albuterol, atrovent PRN, continue home advair. (12) Hx of cancer of lung stable - ALLERGIES Allergies/Adverse Reactions: Allergies Allergy/AdvReac Type Severity Reaction Status Date / Time No Known Drug Allergies Allergy Verified 04/11/19 15:22 - MEDICATIONS Home Medications: Ambulatory Orders Medication Instructions Recorded Confirmed Fluticasone/Salmeterol 250/50 1 puffs INH PRN PRN 05/03/15 04/12/19 [Advair 250 Mcg/50 Mcg] Gabapentin 600 mg PO QPM 05/03/15 04/12/19 traZODone [Desyrel] 50 mg PO QPM 05/03/15 04/12/19 FLUoxetine [PROzac] 20 mg PO DAILY 12/30/18 04/12/19 Albuterol 2.5 mg INH Q4HR PRN #50 neb 04/15/19 Apixaban [Eliquis] 5 mg PO BID #20 tablet 04/15/19 Atorvastatin [Lipitor] 20 mg PO QPM #20 tablet 04/15/19 Blood Sugar Diagnostic [Glucometer 1 each QID #50 strip 04/15/19 Strips] Blood-Glucose Meter [Glucometer] 1 each QID #1 each 04/15/19 Furosemide [Lasix] 20 mg PO DAILY #10 tablet 04/15/19 Ipratropium [Atrovent] 0.5 mg INH Q6HR PRN #40 neb 04/15/19 Lancets 1 each QID #50 each 04/15/19 Metoprolol Tartrate [Lopressor] 75 mg PO BID #60 tablet 04/15/19 Sulfamethox/Trimeth 800/160 1 tab PO BID #10 tablet 04/15/19 [Bactrim Ds] metFORMIN [Glucophage] 500 mg PO BIDWM #20 tablet 04/15/19 - PHYSICAL EXAM AT DISCHARGE General Appearance: positive: No acute distress, Alert. negative: Lethargic Eyes Bilateral: positive: Normal inspection, PERRL, EOMI, No lid inflammation ENT: positive: ENT inspection nml, Pharynx nml, No signs of dehydration. negative: Purulent nasal drainage Neck: positive: Nml inspection, Thyroid nml, No JVD, Trachea midline. negative: Thyromegaly, Lymphadenopathy (R), Lymphadenopathy (L), Stiff neck, Tracheal deviation Respiratory: positive: Chest non-tender, No respiratory distress. negative: Wheezes, Rales, Rhonchi Cardiovascular: positive: Regular rate & rhythm, No murmur, No gallop. negative: Irregularly irregular, Extrasystoles, Tachycardia, Bradycardia, JVD present, Systolic murmur, Diastolic murmur Peripheral Pulses: positive: 2+ Abdomen: positive: Non-tender, No organomegaly, Nml bowel sounds, No distention. negative: Tenderness, Guarding, Rebound Back: positive: Nml inspection. negative: CVA tenderness (R), CVA tenderness (L) Skin: positive: Color nml, No rash, Warm, Dry. negative: Cyanosis, Diaphoresis, Pallor Extremities: positive: Non-tender, Full ROM, Nml appearance. negative: Calf tenderness, Shaan's sign/cords Neurologic/Psychiatric: positive: Oriented x3, Sensation nml, Mood/affect nml. negative: Weakness, Sensory loss, Facial droop, Slurred/abnml speech, Depressed mood/affect - LABS Result Diagrams: 04/15/19 07:16 04/15/19 07:16 - FOLLOW UP Follow Up: you are prescribed portable oxygen, Duoneb, advise you followup RT instruction to safely use home oxygen Your Metoprolol dosage is increased to 75 mg bid to control HR, and Eliquis is prescribed for your afib. you are found to have new diagnosis of DM2, A1C is 7.9. Metformin is prescribed to you, glucometer, strip and lancet are prescribed to you. advise you followup RN instruction to use these device, and followup your PCP continue management your DM2. Lower dosage of Lasix is prescribed for your fluid overload. Bactrim is prescribed for your UTI treatment course. you may followup your PCP in one week, followup yard assistant as out-pt. should your symptoms return or worsen, you may present ER or call 911 for help. - TIME SPENT Time Spent in Discharge (Minutes): 50
== END 2019-04-15 14:07 | disposition home or self-care (01) | DRG 291 ==
LOC: ED 15:14 → ICU 18:38 → MS2 04-13 21:51
PROVIDERS: ADMIT Internal Medicine; ATTEND Nurse Practitioner Gerontology
DX: I11.0 Hypertensive heart disease with heart failure (principal); I50.9 Heart failure, unspecified; J96.01 Acute respiratory failure with hypoxia; D72.829 Elevated white blood cell count, unspecified; I50.31 Acute diastolic (congestive) heart failure; N39.0 Urinary tract infection, site not specified; G47.30 Sleep apnea, unspecified; I48.91 Unspecified atrial fibrillation; J44.9 Chronic obstructive pulmonary disease, unspecified; I20.9 Angina pectoris, unspecified; G47.33 Obstructive sleep apnea (adult) (pediatric); R19.7 Diarrhea, unspecified; E11.40 Type 2 diabetes mellitus with diabetic neuropathy, unspecified; D75.1 Secondary polycythemia; I25.119 Atherosclerotic heart disease of native coronary artery with unspecified angina pectoris; B96.20 Unspecified Escherichia coli [E. coli] as the cause of diseases classified elsewhere; E87.6 Hypokalemia; R25.2 Cramp and spasm; T50.1X5A Adverse effect of loop [high-ceiling] diuretics, initial encounter; Y92.230 Patient room in hospital as the place of occurrence of the external cause; R09.02 Hypoxemia; B37.2 Candidiasis of skin and nail; E66.9 Obesity, unspecified; R32 Unspecified urinary incontinence; Z66 Do not resuscitate; Z99.81 Dependence on supplemental oxygen; Z85.118 Personal history of other malignant neoplasm of bronchus and lung; Z95.5 Presence of coronary angioplasty implant and graft; Z79.899 Other long term (current) drug therapy; Z79.51 Long term (current) use of inhaled steroids; Z86.73 Personal history of transient ischemic attack (TIA), and cerebral infarction without residual deficits; Z90.2 Acquired absence of lung [part of]; Z87.891 Personal history of nicotine dependence; Z79.82 Long term (current) use of aspirin; Z68.38 Body mass index [BMI] 38.0-38.9, adult
CPT/HCPCS: 36415; 71045; 80048; 80053; 81001; 83036; 83690; 83735; 83880; 84100; 84443; 84484; 85025; 87077; 87086; 87150; 87181; 93005; 93306; 93970; 94640; 94660; 96374; 97116; 97161; 99284; 99285; A9270; J7626

== ENCOUNTER 2019-04-18 11:17 | Outpatient (CLI) | payer MEDICARE | END 2019-04-18 11:18 | disposition critical access hospital (66) | LOC: EMS 11:17 | PROVIDERS: ATTEND Surgery | DX: R06.02 Shortness of breath (principal) | CPT/HCPCS: A0425; A0429 ==

== ENCOUNTER 2019-04-18 11:38 | Emergency (ER) | payer MEDICARE ==
[2019-04-18] MEDS ORDERED: IPRATROPIUM/ALBUTEROL 3 ML NEB INH STA (12:22)
[2019-04-18] MEDS ORDERED: predniSONE 20 MG TABLET PO STA (12:23)
--- NOTE | 2019-04-18 12:26 | ED Physician Documentation ---
PD HPI DYSPNEA - Stated complaint Stated Complaint: SOA - Chief complaint Chief Complaint: Resp - History obtained from History obtained from: Patient, EMS - History of Present Illness Timing - onset: Other (1-2 weeks) Timing - onset during: Rest Timing - duration: Weeks (1) Timing - details: Gradual onset Pain level max: 0 Pain level now: 0 Improved by: O2, Inhaler/neb Worsened by: Exertion Associated symptoms: No: Fever, Cough, Hemoptysis, Wheezing, Chest pain / discomfort, Palpitations, Diaphoresis, Bilateral edema, Unilateral edema Similar symptoms before: Diagnosis (COPD, CHF) - Additional information Additional information: 78-year-old female presents to the emergency department with difficulty breathing for the past week or so. She was recently admitted to the hospital for new onset A. fib, CHF, COPD exacerbation and UTI. She states that her breathing has not really improved. She is using her nebulizer treatment 2 times per day. She has an oxygen concentrator at home and is supposed to be on 2-1/2 L 11/12, she does not use oxygen when she goes to bed however because she states that the concentrator is in her living room and she does not the strength to move it. No fevers. No cough. No leg swelling. Review of Systems Ten Systems: 10 systems reviewed and negative Constitutional: denies: Fever, Chills Ears: denies: Ear pain Nose: denies: Rhinorrhea / runny nose, Congestion Cardiac: denies: Chest pain / pressure Respiratory: reports: Dyspnea GI: denies: Nausea, Vomiting, Diarrhea Skin: denies: Rash Musculoskeletal: denies: Neck pain, Back pain Neurologic: denies: Headache PD PAST MEDICAL HISTORY - Past Medical History Past Medical History: Yes Cardiovascular: Hypertension, Coronary artery disease, Angina Respiratory: COPD, Sleep apnea, Other Neuro: CVA Endocrine/Autoimmune: Type 2 diabetes GI: None : Incontinence HEENT: Other Psych: None Musculoskeletal: None Derm: None - Past Surgical History Past Surgical History: Yes General: Cholecystectomy /[employer]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: Hysterectomy Cardiovascular: Coronary stent, Lobectomy HEENT: Cataracts, Tonsil/Adenoidectomy - Present Medications Home Medications: Ambulatory Orders Medication Instructions Recorded Confirmed Fluticasone/Salmeterol 250/50 1 puffs INH PRN PRN 05/03/15 04/12/19 [Advair 250 Mcg/50 Mcg] Gabapentin 600 mg PO QPM 05/03/15 04/12/19 traZODone [Desyrel] 50 mg PO QPM 05/03/15 04/12/19 FLUoxetine [PROzac] 20 mg PO DAILY 12/30/18 04/12/19 Albuterol 2.5 mg INH Q4HR PRN #50 neb 04/15/19 Apixaban [Eliquis] 5 mg PO BID #20 tablet 04/15/19 Atorvastatin [Lipitor] 20 mg PO QPM #20 tablet 04/15/19 Blood Sugar Diagnostic [Glucometer 1 each QID #50 strip 04/15/19 Strips] Blood-Glucose Meter [Glucometer] 1 each QID #1 each 04/15/19 Furosemide [Lasix] 20 mg PO DAILY #10 tablet 04/15/19 Ipratropium [Atrovent] 0.5 mg INH Q6HR PRN #40 neb 04/15/19 Lancets 1 each QID #50 each 04/15/19 Metoprolol Tartrate [Lopressor] 75 mg PO BID #60 tablet 04/15/19 Sulfamethox/Trimeth 800/160 1 tab PO BID #10 tablet 04/15/19 [Bactrim Ds] metFORMIN [Glucophage] 500 mg PO BIDWM #20 tablet 04/15/19 predniSONE [Deltasone] 10 mg PO [id number] #42 tab 04/18/19 - Allergies Allergies/Adverse Reactions: Allergies Allergy/AdvReac Type Severity Reaction Status Date / Time No Known Drug Allergies Allergy Verified 04/18/19 11:43 - Social History Does the pt smoke?: No Smoking Status: Never smoker Does the pt drink ETOH?: No Does the pt have substance abuse?: No - Immunizations Immunizations are current?: Yes PD ED PE NORMAL - Vitals Vital signs reviewed: Yes - General General: Alert and oriented X 3, No acute distress - HEENT HEENT: Moist mucous membranes - Neck Neck: Supple, no meningeal sign - Cardiac Cardiac: RRR, Strong equal pulses - Respiratory Respiratory: No respiratory distress, Other (dimished breath sounds bilaterally) - Abdomen Abdomen: Soft, Non tender, Non distended - Derm Derm: Warm and dry - Extremities Extremities: Other (1+ BLE edema) - Neuro Neuro: Alert and oriented X 3 Results - Vitals Vitals: Vital Signs - 24 hr 04/18/19 04/18/19 04/18/19 11:39 13:07 13:55 Temperature 36.5 C Heart Rate 88 99 94 Respiratory 22 31 H 29 H Rate Blood Pressure 101/56 L 107/49 L O2 Saturation 94 94 Oxygen O2 Source Nasal cannula - EKG (time done) 1144 Rate: Rate (enter#) (81) Rhythm: Atrial fibrillation [place]: Normal Intervals: Normal UT QRS: Normal Ischemia: Non specific changes Compare to prior EKG: Unchanged from prior EKG - Labs Labs: Laboratory Tests 04/18/19 04/18/19 04/18/19 12:34 12:34 12:34 WBC 14.5 H RBC 5.72 H Hgb 14.8 Hct 48.1 H MCV 84.1 MCH 25.9 L MCHC 30.8 L RDW 17.2 H Plt Count 334 MPV 11.0 H Neut # (Auto) 11.4 H Lymph # (Auto) 1.8 [place] # (Auto) 1.0 Eos # (Auto) 0.1 Baso # (Auto) 0.1 Absolute Nucleated RBC 0.00 Nucleated RBC % 0.0 Sodium 140 Potassium 4.5 Chloride 99 L Carbon Dioxide 31 Anion Gap 10.0 BUN 21 H Creatinine 0.8 Estimated GFR (MDRD) 70 L Glucose 115 H Calcium 8.7 Total Bilirubin 0.4 AST 35 ALT 28 Alkaline Phosphatase 86 Troponin I High Sens 13.9 B-Natriuretic Peptide Total Protein 7.9 Albumin 3.5 Globulin 4.4 H Albumin/Globulin Ratio 0.8 L Lipase 27 Urine Color Urine Clarity Urine pH Ur Specific [place] Urine Protein Urine Glucose (UA) Urine Ketones Urine Occult Blood Urine Nitrite Urine Bilirubin Urine Urobilinogen Ur Leukocyte Esterase Urine RBC Urine WBC Ur Squamous Epith Cells Urine Crystals Urine Bacteria Urine Mucus Ur Microscopic Review Urine Culture Comments 04/18/19 04/18/19 12:34 12:39 WBC RBC Hgb Hct MCV MCH MCHC RDW Plt Count MPV Neut # (Auto) Lymph # (Auto) [place] # (Auto) Eos # (Auto) Baso # (Auto) Absolute Nucleated RBC Nucleated RBC % Sodium Potassium Chloride Carbon Dioxide Anion Gap BUN Creatinine Estimated GFR (MDRD) Glucose Calcium Total Bilirubin AST ALT Alkaline Phosphatase Troponin I High Sens B-Natriuretic Peptide 400 H Total Protein Albumin Globulin Albumin/Globulin Ratio Lipase Urine Color YELLOW Urine Clarity HAZY Urine pH 5.5 Ur Specific [place] >=1.030 H Urine Protein NEGATIVE Urine Glucose (UA) NEGATIVE Urine Ketones NEGATIVE Urine Occult Blood TRACE-LYSE Urine Nitrite NEGATIVE Urine Bilirubin NEGATIVE Urine Urobilinogen 0.2 (NORMAL) Ur Leukocyte Esterase NEGATIVE Urine RBC 0-5 Urine WBC 0-3 Ur Squamous Epith Cells FEW Squamous Urine Crystals 26-50 Uric Acid Urine Bacteria Rare Urine Mucus Few Strands Ur Microscopic Review INDICATED Urine Culture Comments NOT INDICATED - Rads (name of study) cxr Radiology: Prelim report reviewed, EMP read contemporaneously PD MEDICAL DECISION MAKING - ED course Complexity details: reviewed results, re-evaluated patient, considered differential, d/w patient ED course: Patient feels much better after breathing treatments and steroids. Breathing easily and speaking in full sentences. We will have her start a prednisone taper at home as well as increase her nebulizer frequency at home. Patient counseled regarding signs and symptoms for which I believe and urgent re- evaluation would be necessary. Patient with good understanding of and agreement to plan and is comfortable going home at this time This document was made in part using voice recognition software. While efforts are made to proofread this document, sound alike and grammatical errors may occur. Departure - Departure Disposition: 01 Home, Self Care Clinical Impression: COPD with exacerbation CHF (congestive heart failure) Qualifiers: Heart failure type: unspecified Heart failure chronicity: chronic Qualified Code(s): I50.9 - Heart failure, unspecified Condition: Good Instructions: ED COPD Flare Follow-Up: Eve Miles PA [Primary Care Provider] - Within 1 week Prescriptions: predniSONE [Deltasone] 10 mg PO [id number] #42 tab Comments: Use the medications as previously prescribed. We will add prednisone onto your medications for the next 10 days. Please increase your nebulizer use. You need to use the Atrovent 4 times a day and the albuterol up to every 4 hours. Return if you worsen
[2019-04-18 12:48] LABS: BASOPHILS # (AUTO) 0.1 10^3/uL (0.0-0.1); BASOPHILS % (AUTO) 0.8 %; EOSINOPHILS # (AUTO) 0.1 10^3/uL (0.0-0.7); EOSINOPHILS % (AUTO) 0.6 %; HGB - HEMOGLOBIN 14.8 g/dL (12.0-16.0); LYMPHOCYTES # (AUTO) 1.8 10^3/uL (1.5-3.5); LYMPHOCYTES % (AUTO) 12.3 %; MEAN CORPUSCULAR HEMOGLOBIN 25.9 pg (27.0-31.0); MEAN CORPUSCULAR HGB CONC 30.8 g/dL (32.0-36.0); MEAN CORPUSCULAR VOLUME 84.1 fL (81.0-99.0); MONOCYTES % (AUTO) 6.9 %; NEUTROPHILS # (AUTO) 11.4 10^3/uL (1.5-6.6); NEUTROPHILS % (AUTO) 78.6 %; PLT - PLATELET COUNT 334 10^3/uL (130-450); RED BLOOD COUNT 5.72 10^6/uL (4.20-5.40); RED CELL DISTRIBUTION WIDTH 17.2 % (12.0-15.0); WHITE BLOOD COUNT 14.5 x10^3/uL (4.8-10.8)
[2019-04-18 13:01] LABS: BILIRUBIN,URINE NEGATIVE (NEGATIVE); GLUCOSE, URINE (UA) NEGATIVE (NEGATIVE); KETONES,URINE (UA) NEGATIVE (NEGATIVE); LEUKOCYTE ESTERASE, URINE NEGATIVE (NEGATIVE); NITRITE,URINE NEGATIVE (NEGATIVE); OCCULT BLOOD,URINE TRACE-LYSE (NEGATIVE); PH,URINE 5.5 PH (5.0-7.5); PROTEIN,URINE NEGATIVE (NEGATIVE); UROBILINOGEN,URINE 0.2 (NORMAL) E.U./dL (NORMAL)
[2019-04-18 13:07] LABS: CLARITY,URINE HAZY (CLEAR)
[2019-04-18 13:13] LABS: ALBUMIN 3.5 g/dL (3.2-5.5); ALBUMIN/GLOBULIN RATIO 0.8 (1.0-2.2); BILIRUBIN,TOTAL 0.4 mg/dL (0.2-1.0); CALCIUM 8.7 mg/dL (8.5-10.3); CREATININE 0.8 mg/dL (0.4-1.0); TOTAL PROTEIN 7.9 g/dL (6.7-8.2)
[2019-04-18 13:14] LABS: BACTERIA,URINE Rare /HPF (None Seen); CRYSTALS,URINE 26-50 Uric Acid /LPF; MUCUS,URINE Few Strands; RBC,URINE 0-5 /HPF (0-5); SQUAMOUS EPITHELIAL CELL,UR FEW Squamous (<= Few)
--- NOTE | 2019-04-18 13:53 | XRAY Report ---
Reason: dyspnea Procedure Date: 04/18/2019 Accession Number: [id number] / [id number] Procedure: XR - Chest 2 View X-Ray CPT Code: 11968 Final Report FULL RESULT: EXAM: CHEST RADIOGRAPHY, 2 VIEWS EXAM DATE: 04/18/2019 01:32 PM. CLINICAL HISTORY: Dyspnea in a 78-year-old female. Also with left back pain. COMPARISON: Chest 1 view 04/11/2019. CT chest with contrast 01/23/2018. Chest 2 views 06/06/2016. TECHNIQUE: Upright PA and lateral views. FINDINGS: Lungs/Pleura: Volume loss right chest, as previously. Chronic interstitial changes. No definite infiltrates, effusions or pneumothorax. Mediastinum: Heart size upper normal to slightly enlarged and deviated slightly to the right. No pulmonary vascular congestion or adenopathy. Other: Trachea deviated to the right consistent with right chest volume loss, stable. Osseous structures unremarkable for age. IMPRESSION: Stable chest. Likely postsurgical volume loss right chest with mild chronic interstitial lung disease. No overt pneumonia, CHF or acute process. RADIA
[2019-04-18 15:43] VITALS: BP 136/70
== END 2019-04-18 15:56 | disposition home or self-care (01) ==
LOC: ED 11:38
DX: J44.1 Chronic obstructive pulmonary disease with (acute) exacerbation (principal); I11.0 Hypertensive heart disease with heart failure; I50.9 Heart failure, unspecified; E11.9 Type 2 diabetes mellitus without complications; Z79.84 Long term (current) use of oral hypoglycemic drugs; Z99.81 Dependence on supplemental oxygen
CPT/HCPCS: 36415; 71046; 80053; 81001; 83690; 83880; 84484; 85025; 93005; 94640; 99284; 99285; J7512; 81003; 87086

== ENCOUNTER 2019-04-29 08:00 | Outpatient (CLI) | payer MEDICARE ==
[2019-04-29 18:39] LABS: BASOPHILS # (AUTO) 0.1 10^3/uL (0.0-0.1); BASOPHILS % (AUTO) 0.6 %; EOSINOPHILS # (AUTO) 0.1 10^3/uL (0.0-0.7); EOSINOPHILS % (AUTO) 0.9 %; HGB - HEMOGLOBIN 14.6 g/dL (12.0-16.0); LYMPHOCYTES # (AUTO) 1.3 10^3/uL (1.5-3.5); LYMPHOCYTES % (AUTO) 11.3 %; MEAN CORPUSCULAR HEMOGLOBIN 25.6 pg (27.0-31.0); MEAN CORPUSCULAR HGB CONC 30.4 g/dL (32.0-36.0); MEAN CORPUSCULAR VOLUME 84.4 fL (81.0-99.0); MEAN PLATELET VOLUME 11.8 fL (7.9-10.8); MONOCYTES # (AUTO) 1.1 10^3/uL (0.0-1.0); MONOCYTES % (AUTO) 9.5 %; PLT - PLATELET COUNT 301 10^3/uL (130-450); WHITE BLOOD COUNT 11.7 x10^3/uL (4.8-10.8)
[2019-04-29 18:57] LABS: ALBUMIN 3.4 g/dL (3.2-5.5); ALBUMIN/GLOBULIN RATIO 0.9 (1.0-2.2); BILIRUBIN,TOTAL 1.2 mg/dL (0.2-1.0); CALCIUM 8.7 mg/dL (8.5-10.3); CREATININE 0.6 mg/dL (0.4-1.0); TOTAL PROTEIN 7.3 g/dL (6.7-8.2)
== END 2019-04-29 23:59 | disposition home or self-care (01) ==
LOC: LAB.WCP 08:00
PROVIDERS: ATTEND Physician Assistant
DX: I50.9 Heart failure, unspecified (principal)
CPT/HCPCS: 36415; 80053; 85025

== ENCOUNTER 2019-05-02 07:00 | Outpatient (CLI) | payer MEDICARE ==
[2019-05-02 18:55] LABS: BASOPHILS # (AUTO) 0.1 10^3/uL (0.0-0.1); BASOPHILS % (AUTO) 0.6 %; EOSINOPHILS # (AUTO) 0.1 10^3/uL (0.0-0.7); EOSINOPHILS % (AUTO) 0.8 %; HGB - HEMOGLOBIN 14.6 g/dL (12.0-16.0); LYMPHOCYTES # (AUTO) 1.8 10^3/uL (1.5-3.5); LYMPHOCYTES % (AUTO) 12.5 %; MEAN CORPUSCULAR HEMOGLOBIN 25.5 pg (27.0-31.0); MEAN CORPUSCULAR HGB CONC 30.9 g/dL (32.0-36.0); MEAN CORPUSCULAR VOLUME 82.5 fL (81.0-99.0); MEAN PLATELET VOLUME 11.8 fL (7.9-10.8); MONOCYTES # (AUTO) 1.4 10^3/uL (0.0-1.0); NEUTROPHILS # (AUTO) 10.7 10^3/uL (1.5-6.6); NEUTROPHILS % (AUTO) 75.5 %; PLT - PLATELET COUNT 293 10^3/uL (130-450); RED BLOOD COUNT 5.72 10^6/uL (4.20-5.40); RED CELL DISTRIBUTION WIDTH 18.2 % (12.0-15.0); WHITE BLOOD COUNT 14.1 x10^3/uL (4.8-10.8)
[2019-05-02 19:19] LABS: ALBUMIN 3.2 g/dL (3.2-5.5); ALBUMIN/GLOBULIN RATIO 0.8 (1.0-2.2); BILIRUBIN,TOTAL 0.6 mg/dL (0.2-1.0); CREATININE 0.8 mg/dL (0.4-1.0); TOTAL PROTEIN 7.3 g/dL (6.7-8.2)
== END 2019-05-02 23:59 | disposition home or self-care (01) ==
LOC: LAB.R 07:00
PROVIDERS: ATTEND Physician Assistant
DX: I50.9 Heart failure, unspecified (principal); R94.5 Abnormal results of liver function studies
CPT/HCPCS: 80053; 83880; 85025

== ENCOUNTER 2019-05-06 06:48 | Outpatient (CLI) | payer MEDICARE | END 2019-05-06 06:49 | disposition critical access hospital (66) | LOC: EMS 06:48 | PROVIDERS: ATTEND Surgery | DX: R06.02 Shortness of breath (principal) | CPT/HCPCS: A0425; A0427 ==

== ENCOUNTER 2019-05-06 07:13 | Inpatient (IN) | payer MEDICARE ==
--- NOTE | 2019-05-06 07:31 | ED Physician Documentation ---
PD HPI DYSPNEA - Stated complaint Stated Complaint: CHF EXAC - Chief complaint Chief Complaint: Resp - History obtained from History obtained from: Patient, EMS - History of Present Illness Timing - onset: How many days ago (few) Timing - onset during: Light activity Timing - duration: Days (few) Timing - details: Gradual onset Inciting event(s): No: Out of meds, URI, Immobilization/travel Improved by: O2, Inhaler/neb Worsened by: Exertion, Laying flat Associated symptoms: Wheezing, Bilateral edema (increased over few days). No: Fever, Cough Similar symptoms before: Diagnosis (CHF and COPD) Recently seen: Emergency Dept, Admitted Review of Systems Constitutional: reports: Fatigue. denies: Fever, Chills Nose: denies: Rhinorrhea / runny nose, Congestion Throat: denies: Sore throat Cardiac: reports: Pedal edema (progressive over past several days). denies: Chest pain / pressure, Palpitations, Calf pain Respiratory: reports: Dyspnea, Wheezing. denies: Cough Skin: denies: Rash, Lesions Musculoskeletal: reports: Extremity swelling Neurologic: reports: Generalized weakness. denies: Focal weakness, Near syncope Endocrine: reports: Weight gain. 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 Cardiovascular: Coronary stent, Lobectomy HEENT: Cataracts, Tonsil/Adenoidectomy - Present Medications Home Medications: Ambulatory Orders Medication Instructions Recorded Confirmed Fluticasone/Salmeterol 250/50 1 puffs INH PRN PRN 05/03/15 04/12/19 [Advair 250 Mcg/50 Mcg] Gabapentin 600 mg PO QPM 05/03/15 04/12/19 traZODone [Desyrel] 50 mg PO QPM 05/03/15 04/12/19 FLUoxetine [PROzac] 20 mg PO DAILY 12/30/18 04/12/19 Albuterol 2.5 mg INH Q4HR PRN #50 neb 04/15/19 Apixaban [Eliquis] 5 mg PO BID #20 tablet 04/15/19 Atorvastatin [Lipitor] 20 mg PO QPM #20 tablet 04/15/19 Blood Sugar Diagnostic [Glucometer 1 each QID #50 strip 04/15/19 Strips] Blood-Glucose Meter [Glucometer] 1 each QID #1 each 04/15/19 Furosemide [Lasix] 20 mg PO DAILY #10 tablet 04/15/19 Ipratropium [Atrovent] 0.5 mg INH Q6HR PRN #40 neb 04/15/19 Lancets 1 each QID #50 each 04/15/19 Metoprolol Tartrate [Lopressor] 75 mg PO BID #60 tablet 04/15/19 Sulfamethox/Trimeth 800/160 1 tab PO BID #10 tablet 04/15/19 [Bactrim Ds] metFORMIN [Glucophage] 500 mg PO BIDWM #20 tablet 04/15/19 predniSONE [Deltasone] 10 mg PO [id number] #42 tab 04/18/19 - Allergies Allergies/Adverse Reactions: Allergies Allergy/AdvReac Type Severity Reaction Status Date / Time No Known Drug Allergies Allergy Verified 04/18/19 11:43 - Social History Does the pt smoke?: No Smoking Status: Never smoker Does the pt drink ETOH?: No Does the pt have substance abuse?: No - Immunizations Immunizations are current?: Yes PD ED PE NORMAL - Vitals Vital signs reviewed: Yes (Oximetry is good on her usual 3 L nasal cannula.) - General General: Alert and oriented X 3, Well developed/nourished - HEENT HEENT: Pharynx benign - Neck Neck: Supple, no meningeal sign, No adenopathy - Cardiac Cardiac: No murmur. No: RRR (Irregular and tachycardic at 1 20-1 30) - Respiratory Respiratory: No: Clear bilaterally (Bilateral diffuse wheezes with prolonged expiratory phase. There is also some fine crackles at the bases.) - Abdomen Abdomen: Soft, Non tender - Back Back: No CVA TTP - Derm Derm: Normal color, Warm and dry - Extremities Extremities: No deformity, No calf tenderness / cord, Other (2+ edema in both ankles and lower legs. There is no redness nor infectious changes.) - Neuro Neuro: Alert and oriented X 3, No motor deficit, Normal speech Results - Vitals Vitals: Vital Signs - 24 hr 05/06/19 05/06/19 05/06/19 07:19 07:33 08:11 Temperature 37.1 C 97.7 C H Heart Rate 98 96 110 H Respiratory 24 24 20 Rate Blood Pressure 135/96 H 103/75 O2 Saturation 92 94 05/06/19 05/06/19 05/06/19 09:36 10:05 10:45 Temperature Heart Rate 118 H 106 H 104 H Respiratory 24 14 18 Rate Blood Pressure 127/114 H 128/110 H O2 Saturation 94 96 05/06/19 05/06/19 05/06/19 10:55 11:05 11:21 Temperature 36.6 C Heart Rate 116 H 123 H 139 H Respiratory 26 H 20 Rate Blood Pressure 106/81 H 135/124 H O2 Saturation 91 L 94 05/06/19 05/06/19 11:59 12:29 Temperature Heart Rate 123 H 127 H Respiratory 20 24 Rate Blood Pressure 128/110 H 122/97 H O2 Saturation 95 94 Oxygen O2 Source Nasal cannula Oxygen Flow Rate 3 - Labs Labs: Laboratory Tests 05/06/19 05/06/19 05/06/19 07:55 07:55 07:55 WBC 13.7 H RBC 5.82 H Hgb 14.4 Hct 48.5 H MCV 83.3 MCH 24.7 L MCHC 29.7 L RDW 18.8 H Plt Count 302 MPV 10.8 Neut # (Auto) 11.2 H Lymph # (Auto) 1.4 L Dougherty # (Auto) 0.9 Eos # (Auto) 0.1 Baso # (Auto) 0.1 Absolute Nucleated RBC 0.00 Nucleated RBC % 0.0 Sodium 142 Potassium 3.5 Chloride 96 L Carbon Dioxide 36 H Anion Gap 10.0 BUN 22 H Creatinine 0.6 Estimated GFR (MDRD) 97 Glucose 159 H Glycated Hemoglobin Estim Average Glucose Calcium 8.6 Magnesium 2.0 Total Bilirubin 0.8 AST 35 ALT 30 Alkaline Phosphatase 90 Troponin I High Sens B-Natriuretic Peptide 343 H Total Protein 7.6 Albumin 3.5 Globulin 4.1 Albumin/Globulin Ratio 0.9 L Lipase 24 05/06/19 05/06/19 07:55 07:55 WBC RBC Hgb Hct MCV MCH MCHC RDW Plt Count MPV Neut # (Auto) Lymph # (Auto) Dougherty # (Auto) Eos # (Auto) Baso # (Auto) Absolute Nucleated RBC Nucleated RBC % Sodium Potassium Chloride Carbon Dioxide Anion Gap BUN Creatinine Estimated GFR (MDRD) Glucose Glycated Hemoglobin 7.9 H Estim Average Glucose 180 H Calcium Magnesium Total Bilirubin AST ALT Alkaline Phosphatase Troponin I High Sens 7.8 B-Natriuretic Peptide Total Protein Albumin Globulin Albumin/Globulin Ratio Lipase - Rads (name of study) chest xray Radiology: Prelim report reviewed (Cardiomegaly with some interstitial changes consistent with mild CHF. No effusions. No infiltrates), See rad report PD MEDICAL DECISION MAKING - ED course Complexity details: re-evaluated patient (She is feeling better with repeat nebulizers and she does continue to diurese here in the ER. Her breathing is improved. However her atrial fibrillation still is running fast despite doses of metoprolol IV. I think she is not improved enough for being able to be stable at home and requires further treatment.), considered differential (She is diuresing well with some IV Lasix given by EMS en route. She feels the urge to need to urinate soon after arrival. She has also given a nebulizer en route with improvement in her breathing. However she still has significant wheezing. She does have progressive leg edema over several days. She is also in atrial fibrillation with a fast rate. Any or all of these may be contributing factors.), d/w patient ED course: My impression is there is a combination of an exacerbation of her COPD as well as some congestive heart failure. She has had weight gain and leg edema increasing over several days. However chest x-ray and BNP are not significantly elevated and so some diuresing should help. Her blood pressure is not too elevated so I did not give any nitrates. Her atrial fibrillation is at a fast response rate. I do not know this is responsive and secondary to her dyspnea or may be primary as a cause for her congestive failure. If not well controlled at this point and still needs further treatment. Departure - Departure Disposition: 66 [facility] DC/Xfer Clinical Impression: COPD exacerbation, Atrial fibrillation with rapid ventricular response Dyspnea Qualifiers: Dyspnea type: shortness of breath Qualified Code(s): R06.02 - Shortness of breath Acute exacerbation of CHF (congestive heart failure) Qualifiers: Heart failure type: unspecified Qualified Code(s): I50.9 - Heart failure, unspecified Condition: Stable Record reviewed to determine appropriate education?: Yes Discharge Date/Time: 05/06/19 14:20
[2019-05-06] MEDS ORDERED: IPRATROPIUM/ALBUTEROL 3 ML NEB INH STA (07:56)
[2019-05-06 08:12] LABS: BASOPHILS # (AUTO) 0.1 10^3/uL (0.0-0.1); BASOPHILS % (AUTO) 0.6 %; EOSINOPHILS # (AUTO) 0.1 10^3/uL (0.0-0.7); EOSINOPHILS % (AUTO) 0.4 %; HGB - HEMOGLOBIN 14.4 g/dL (12.0-16.0); LYMPHOCYTES # (AUTO) 1.4 10^3/uL (1.5-3.5); LYMPHOCYTES % (AUTO) 10.4 %; MEAN CORPUSCULAR HEMOGLOBIN 24.7 pg (27.0-31.0); MEAN CORPUSCULAR HGB CONC 29.7 g/dL (32.0-36.0); MEAN CORPUSCULAR VOLUME 83.3 fL (81.0-99.0); MEAN PLATELET VOLUME 10.8 fL (7.9-10.8); MONOCYTES # (AUTO) 0.9 10^3/uL (0.0-1.0); MONOCYTES % (AUTO) 6.4 %; NEUTROPHILS # (AUTO) 11.2 10^3/uL (1.5-6.6); NEUTROPHILS % (AUTO) 81.5 %; PLT - PLATELET COUNT 302 10^3/uL (130-450); RED BLOOD COUNT 5.82 10^6/uL (4.20-5.40); RED CELL DISTRIBUTION WIDTH 18.8 % (12.0-15.0); WHITE BLOOD COUNT 13.7 x10^3/uL (4.8-10.8)
[2019-05-06 08:27] LABS: ALBUMIN 3.5 g/dL (3.2-5.5); ALBUMIN/GLOBULIN RATIO 0.9 (1.0-2.2); BILIRUBIN,TOTAL 0.8 mg/dL (0.2-1.0); CALCIUM 8.6 mg/dL (8.5-10.3); CREATININE 0.6 mg/dL (0.4-1.0); TOTAL PROTEIN 7.6 g/dL (6.7-8.2)
--- NOTE | 2019-05-06 08:28 | XRAY Report ---
Reason: dyspnea and edema for several days Procedure Date: 05/06/2019 Accession Number: [id number] / [id number] Procedure: XR - Chest 2 View X-Ray CPT Code: 26156 Final Report FULL RESULT: EXAM: CHEST RADIOGRAPHY EXAM DATE: 05/06/2019 07:50 AM. CLINICAL HISTORY: Dyspnea and edema for several days. COMPARISON: CHEST 2 VIEW 04/18/2019 1:21 PM CHEST W/ 01/23/2018 1:12 PM CHEST ANGIO 12/01/2015 7:41 AM. TECHNIQUE: 2 views. FINDINGS: Lungs/Pleura: 1.5 cm right suprahilar nodular density. Course interstitial markings. Mediastinum: Cardiomegaly. Chronic rightward cardiac shaft. Atherosclerotic aortic calcifications. Other: Bones appear osteopenic. IMPRESSION: 1. A 1.5 cm right suprahilar nodular density. Question lung nodule versus superimposition artifact. Lateral right upper lobe lung nodule demonstrated on prior CT exam was more cephalad than the present nodular density. Consider chest CT to further assess. 2. Mild pulmonary vascular congestion. RADIA
[2019-05-06] MEDS ORDERED: POTASSIUM CHLOR 10 MEQ/100 ML 10 MEQ/100 ML BAG IV ONE (08:49)
[2019-05-06] MEDS ORDERED: DEXAMETHASONE 10 MG/ML VIAL IVP STA (08:51)
[2019-05-06] MEDS ORDERED: METOPROLOL 5 MG/5 ML VIAL IVP STA ×3 (09:49→12:20)
[2019-05-06] MEDS ORDERED: ALBUTEROL NEB 2.5 MG/3 ML INH STA (10:25)
[2019-05-06] MEDS ORDERED: ZOLPIDEM 5 MG TABLET PO PRN (13:12)
[2019-05-06] MEDS ORDERED: ONDANSETRON 4 MG/2 ML VIAL IVP PRN (13:12)
--- NOTE | 2019-05-06 13:32 | HISTORY & PHYSICAL EXAMINATION ---
Chief Complaint - Chief Complaint Chief Complaint: SOB History of Present Illness - History of Present Illness HPI Comment/Other: Ms. Zepeda is a 78-year-old female with a PMH significant for COPD with oxygen use as needed, recurrent shortness of breath, obstructive sleep apnea, polycythemia, neuropathy, hypertension, coronary artery disease with stenting in the past who presents, afib with eliquis, and diabetes today complaining of worsening shortness of breath over the past week. pt was admitted about 3 weeks ago with similar symptoms of shortness of breath. She states her symptoms have progressively become more severe on today. She has associated worsening lower extremity edema over the past week. She denies fevers or chills. she report she felt some chest pain when she had deep breath or cough. But now she denies any chest pain. She reports no sick contacts. She reports no history of heart failure. She did have a stent placed over 10 years ago in [place] but denies chest pain at this time. She report she had hx of polycythemia and gets monthly phlebotomies before. In the emergency department, She is found to be in atrial fibrillation with rates around 110- 120s. Her labs did reveal a white count of 14 with a left shift. Her initial troponin was negative. BNP was 343. Rest of her labs unremarkable. Given her respiratory symptoms and uncontrolled afib, medicine was consulted for admission. History - Past Medical History Cardiovascular: reports: Hypertension, Coronary artery disease, Angina Respiratory: reports: COPD, Sleep apnea, Other Neuro: reports: CVA Endocrine/Autoimmune: reports: Type 2 diabetes GI: reports: None : reports: Incontinence HEENT: reports: Other Psych: reports: None Musculoskeletal: reports: None Derm: reports: None MRSA Hx?: No Other Past Medical History: lung cancer, right lung. 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 Her father in his 40s which she believes was secondary to a possible aneurysm. Her mother lived into her 90s. Social History Notes: She previously lived in [place] but moved here 3 years ago after her to be closer to her son. 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 She no longer smokes but previously smoked 2 to 3 packs a day for at least 30 years. She does not drink alcohol. She wishes to be a DNR. Meds/Allgy - Home Medications Home Medications: Ambulatory Orders Medication Instructions Recorded Confirmed Fluticasone/Salmeterol 250/50 1 puffs INH PRN PRN 05/03/15 04/12/19 [Advair 250 Mcg/50 Mcg] Gabapentin 600 mg PO QPM 05/03/15 04/12/19 traZODone [Desyrel] 50 mg PO QPM 05/03/15 04/12/19 FLUoxetine [PROzac] 20 mg PO DAILY 12/30/18 04/12/19 Albuterol 2.5 mg INH Q4HR PRN #50 neb 04/15/19 Apixaban [Eliquis] 5 mg PO BID #20 tablet 04/15/19 Atorvastatin [Lipitor] 20 mg PO QPM #20 tablet 04/15/19 Blood Sugar Diagnostic [Glucometer 1 each QID #50 strip 04/15/19 Strips] Blood-Glucose Meter [Glucometer] 1 each QID #1 each 04/15/19 Furosemide [Lasix] 20 mg PO DAILY #10 tablet 04/15/19 Ipratropium [Atrovent] 0.5 mg INH Q6HR PRN #40 neb 04/15/19 Lancets 1 each QID #50 each 04/15/19 Metoprolol Tartrate [Lopressor] 75 mg PO BID #60 tablet 04/15/19 Sulfamethox/Trimeth 800/160 1 tab PO BID #10 tablet 04/15/19 [Bactrim Ds] metFORMIN [Glucophage] 500 mg PO BIDWM #20 tablet 04/15/19 predniSONE [Deltasone] 10 mg PO [id number] #42 tab 04/18/19 - Allergies Allergies/Adverse Reactions: Allergies Allergy/AdvReac Type Severity Reaction Status Date / Time No Known Drug Allergies Allergy Verified 04/18/19 11:43 Review of Systems - Constitutional Constitutional: denies: Fatigue, Fever, Chills, Malaise, Weakness, Poor appetite, Diaphoresis, Night sweats - Eyes Eyes: denies: Pain, Irritation, Blurred vision, Spots in vision, Field loss, Vision loss, Dipolpia - Ears, Nose & Throat Ears, Nose & Throat: denies: Ear pain, Hearing loss, Hearing aids, Tinnitus, Vertigo, Nasal pain, Nasal discharge, Nosebleeds, Nasal obstruction, Nasal congestion, Postnasal drainage, Dentures, Sore throat, Hoarseness - Cardiovascular Cariovascular: reports: Exertional dyspnea, Decr. exercise tolerance. denies: Irregular heart rate, Palpitations, Chest pain, Edema, Lightheadedness, Syncope - Respiratory Respiratory: reports: SOB with exertion. denies: Cough, Sputum production, Wheezing, Snoring, Hemoptysis, Orthopnea, SOB at rest, Apnea - Gastrointestinal Gastrointestinal: denies: Abdominal pain, Abdominal distention, Constipation, Diarrhea, Change in bowel habits, Rectal bleeding, Black stools, Bloody stools, Nausea, Vomiting, Coffee grounds emesis, Reflux/heartburn - Genitourinary Genitourinary: denies: Dysuria, Frequency, Urgency, Hematuria, Incontinence, Flank pain, Nocturia, Urethral discharge - Musculoskeletal Musculoskeletal: denies: Muscle pain, Back pain, Muscle aches, Stiffness, Limited range of motion, Muscle weakness, Gout, Joint pain - Integumentary Integumentary: denies: Rash, Lesions, Dryness, Lumps, Acne, Pigment changes, Nail changes - Neurological Neurological: denies: General weakness, Focal weakness, Headache, Dizziness, Numbness, Memory problems, Pre-existing deficit, Abnormal gait, Seizures, Incoordination, Slurred speech - Psychiatric Psychiatric: denies: Depression, Anxiety, Suicidal, Delusions, Hallucinations, Homicidal - Endocrine Endocrine: denies: Polyuria, Polydypsia, Polyphagia, Intolerance to cold - Hematologic/Lymphatic Hematologic/Lymphatic: denies: Anemia, Bruising, Petechiae, Blood clots, Lymphadenopathy, Bleeding tendencies Exam - Vital Signs Reviewed Vital Signs: Yes Vital Signs: Vital Signs x48h Temp Pulse Resp BP Pulse Ox 05/06/19 12:29 127 H 24 122/97 H 94 05/06/19 11:59 123 H 20 128/110 H 95 05/06/19 11:21 139 H 20 135/124 H 94 05/06/19 11:05 123 H 05/06/19 10:55 36.6 C 116 H 26 H 106/81 H 91 L 05/06/19 10:45 104 H 18 05/06/19 10:05 106 H 14 128/110 H 96 05/06/19 09:36 118 H 24 127/114 H 94 05/06/19 08:11 110 H 20 05/06/19 07:33 97.7 C H 96 24 103/75 94 05/06/19 07:19 37.1 C 98 24 135/96 H 92 - Physical Exam General Appearance: positive: No acute distress, Alert. negative: Lethargic Eyes Bilateral: positive: Normal inspection, PERRL, EOMI, No lid inflammation ENT: positive: ENT inspection nml, Pharynx nml, No signs of dehydration. negative: Purulent nasal drainage Neck: positive: Nml inspection, Thyroid nml, No JVD, Trachea midline. negative: Thyromegaly, Lymphadenopathy (R), Lymphadenopathy (L), Stiff neck, Tracheal deviation Respiratory: positive: Chest non-tender, No respiratory distress. negative: Wheezes, Rales, Rhonchi Cardiovascular: positive: Regular rate & rhythm, No murmur, No gallop, Tachycardia. negative: Irregularly irregular, Extrasystoles, Bradycardia, JVD present, Systolic murmur, Diastolic murmur Peripheral Pulses: positive: 2+ Abdomen: positive: Non-tender, No organomegaly, Nml bowel sounds, No distention. negative: Tenderness, Guarding, Rebound Back: positive: Nml inspection. negative: CVA tenderness (R), CVA tenderness (L) Skin: positive: Color nml, No rash, Warm, Dry. negative: Cyanosis, Diaphoresis, Pallor Extremities: positive: Non-tender, Full ROM, Nml appearance. negative: Calf tenderness, Shaan's sign/cords Neurologic/Psychiatric: positive: Oriented x3, Motor nml, Sensation nml, Mood/affect nml. negative: Weakness, Sensory loss, Facial droop, Slurred/abnml speech, Depressed mood/affect Sepsis Event Note (H) - Evaluation Current Stage of Sepsis: Ruled out Conclusion/Plan - Problem List (1) Dyspnea Conclusion/Plan: Presenting symptoms are more concerning for her COPD exacerbation. pt only had mild lower extremity edema. Her last ECHO in 04/08 revealed normal EF and right normal pressure. BNP 343 today as her baseline. CT of her chest reveals stable size of the nodule, no evidence of disease progression. breath treatment with Xopenex, Ipr, pulmocort solu-medrol supplement of O2 as needed (2) Atrial fibrillation with rapid ventricular response Conclusion/Plan: pt Resented with heart rates in the 110s to 120s. Troponin is negative. Her el ectrolytes are optimized. We will start her home metoprolol 75 mg twice a day. continue Eliquis 5 mg twice a day tele and vital monitor (3) COPD exacerbation Conclusion/Plan: Her presenting symptoms are not consistent with a COPD exacerbation despite her reported improvement with albuterol and Advair. Her lungs are diminished in the bases and clear throughout without wheezing. We will continue Pulmicort and formoterol while inpatient. Albuterol as needed. Continue supplemental oxygen for goal saturation greater than 88%. add solu-metrol (4) Obstructive sleep apnea Conclusion/Plan: She is not on CPAP at home. She uses oxygen as needed overnight. advise pt followup lead software qa engineer for further sleep study (5) Hypertension Conclusion/Plan: She is currently normotensive. Will resume her home Metoprolol. (6) Coronary artery disease Conclusion/Plan: EKG is without signs of ischemia. Troponin has been negative. continue Eliquis and Lipitor. (7) Polycythemia Conclusion/Plan: Her hemoglobin is stable at this time. She can continue outpatient phlebotomy and follow-up with hematology. (8)diabetes She has 7.9 A1C. pt did not take insulin at home. hold her home Metformin start SS, ACHS, and start hypoglycemia protocol (9)obesity She has 43 BMI, discuss with pt for weight loss (10) hx of lung cancer CT of her chest reveals stable size of the nodule, no evidence of disease progression. advise pt continue closely monitor (11) DNR/DNI pt clearly request DNR/DNI for her code status Qualifiers: Dyspnea type: shortness of breath Qualified Code(s): R06.02 - Shortness of breath; R06.00 - Dyspnea, unspecified; R06.01 - Orthopnea - Lab Results Fish Bones: 05/06/19 07:55 05/06/19 07:55 Core Measures - Anticipated LOS I expect patient to be DC'd or transferred within 96 hours.: Yes - DVT/VTE - Prophylaxis VTE/DVT Device ordered at admit?: Yes VTE/DVT Prophylaxis med ordered at admit?: Yes
[2019-05-06 13:57] LABS: HB2 TOTAL 14.6 g/dL; HEMOGLOBIN A1C 0.91 g/dL; HEMOGLOBIN A1C % 7.9 % (4.6-6.2)
[2019-05-06] MEDS: METOPROLOL TARTRATE 25 MG TABLET PO SCH ×2 (14:45→21:30)
[2019-05-06] MEDS: SODIUM CHLORIDE FLUSH 0.9% 10 ML SYRINGE IVP PRN (14:46)
[2019-05-06] MEDS: FUROSEMIDE 20 MG/2 ML VIAL IVP SCH (14:46)
[2019-05-06] MEDS: methylPREDNISolone SUCCINATE 40 MG/ML VIAL IVP SCH ×2 (14:46→21:30)
--- NOTE | 2019-05-06 15:04 | CT Report ---
Reason: hx of lung cancer, new nodule on CXR Procedure Date: 05/06/2019 Accession Number: [id number] / [id number] Procedure: CT - CHEST WO CPT Code: Final Report FULL RESULT: EXAM: CT CHEST WITHOUT CONTRAST. EXAM DATE: 05/06/2019 02:08 PM. CLINICAL HISTORY: History of lung cancer, new nodule on chest x-ray. COMPARISONS: CHEST 2 VIEW 05/06/2019 7:34 AM. CHEST W/ 01/23/2018 1:12 PM. CHEST W/O 03/28/2017 1:22 PM. TECHNIQUE: Routine helical CT imaging was performed through the chest. IV contrast: None. Reconstructions: Coronal and sagittal. In accordance with CT protocol optimization, one or more of the following dose reduction techniques were utilized for this exam: automated exposure control, adjustment of mA and/or KV based on patient size, or use of iterative reconstructive technique. FINDINGS: Lungs/Pleura: There is a stable, 6 mm peripheral right apical nodule. No new nodules or airspace disease seen corresponding to chest x-ray findings which are most likely secondary to summation artifact. Status post right lower lobe resection. Scarring and/or atelectasis seen in the inferior lingula. There is mild centrilobular emphysema. No pleural effusion or pneumothorax. Mediastinum: There are extensive aortic and coronary artery calcifications. Stable 8 mm anterior mediastinal lymph node. No new lymphadenopathy seen. Extensive coronary artery calcifications present. No pericardial effusion. Bones: No destructive bone lesions. Visualized Abdomen: There is a 2.1 cm hyperdense cyst at the upper pole of the left kidney. This previously measured 1.9 cm. Additional simple and hyperdense bilateral renal cysts are noted and slightly more conspicuous. Other: None. IMPRESSION: 1. No evidence of disease progression. 2. Stable 6 mm peripheral right apical nodule. Questionable lung findings on recent chest x-ray likely artifactual. 3. Bilateral simple and hyperdense renal cyst slightly increased in size. RADIA
[2019-05-06] MEDS: LEVALBUTEROL 1.25 MG/3 ML NEB INH PRN ×2 (15:13→20:02)
[2019-05-06] MEDS: IPRATROPIUM 0.2 MG/ML NEB INH SCH ×2 (15:13→20:02)
[2019-05-06 16:01] LABS: BILIRUBIN,URINE NEGATIVE (NEGATIVE); GLUCOSE, URINE (UA) NEGATIVE (NEGATIVE); KETONES,URINE (UA) NEGATIVE (NEGATIVE); LEUKOCYTE ESTERASE, URINE NEGATIVE (NEGATIVE); NITRITE,URINE NEGATIVE (NEGATIVE); OCCULT BLOOD,URINE TRACE-INTA (NEGATIVE); PROTEIN,URINE NEGATIVE (NEGATIVE); UROBILINOGEN,URINE 0.2 (NORMAL) E.U./dL (NORMAL)
[2019-05-06 16:10] LABS: CLARITY,URINE CLEAR (CLEAR)
[2019-05-06 16:24] LABS: BACTERIA,URINE None Seen /HPF (None Seen); MUCUS,URINE Few Strands; RBC,URINE None Seen /HPF (0-5); SQUAMOUS EPITHELIAL CELL,UR RARE Squamous (<= Few)
[2019-05-06] MEDS: INSULIN ASPART 300 UNIT/3 ML PEN SUBQ SCH ×2 (16:56→21:31)
[2019-05-06] MEDS: SODIUM CHLORIDE FLUSH 0.9% 10 ML SYRINGE IVP SCH (16:57)
[2019-05-06] MEDS: BUDESONIDE 0.5 MG/2 ML NEB INH SCH (20:03)
[2019-05-06] MEDS: GABAPENTIN 300 MG CAPSULE PO SCH (21:29)
[2019-05-06] MEDS: traZODone 50 MG TABLET PO SCH (21:29)
[2019-05-06] MEDS: APIXABAN 5 MG TABLET PO SCH (21:30)
[2019-05-06] MEDS: FAMOTIDINE 20 MG TABLET PO SCH (21:31)
[2019-05-06] MEDS: NYSTATIN CREAM 15 GM TUBE TOP SCH (21:31)
[2019-05-07] MEDS: ACETAMINOPHEN 325 MG TABLET PO PRN ×2 (00:15→21:50)
[2019-05-07] MEDS: SODIUM CHLORIDE FLUSH 0.9% 10 ML SYRINGE IVP SCH ×4 (00:15→23:37)
[2019-05-07] MEDS: methylPREDNISolone SUCCINATE 40 MG/ML VIAL IVP SCH ×3 (05:31→21:52)
[2019-05-07 05:48] LABS: BASOPHILS # (AUTO) 0.1 10^3/uL (0.0-0.1); BASOPHILS % (AUTO) 0.3 %; HGB - HEMOGLOBIN 14.1 g/dL (12.0-16.0); LYMPHOCYTES # (AUTO) 1.2 10^3/uL (1.5-3.5); LYMPHOCYTES % (AUTO) 7.8 %; MEAN CORPUSCULAR HEMOGLOBIN 25.5 pg (27.0-31.0); MEAN CORPUSCULAR HGB CONC 30.7 g/dL (32.0-36.0); MEAN CORPUSCULAR VOLUME 82.9 fL (81.0-99.0); MEAN PLATELET VOLUME 10.9 fL (7.9-10.8); MONOCYTES # (AUTO) 0.4 10^3/uL (0.0-1.0); MONOCYTES % (AUTO) 2.3 %; NEUTROPHILS # (AUTO) 13.4 10^3/uL (1.5-6.6); NEUTROPHILS % (AUTO) 88.5 %; PLT - PLATELET COUNT 271 10^3/uL (130-450); RED BLOOD COUNT 5.54 10^6/uL (4.20-5.40); RED CELL DISTRIBUTION WIDTH 18.3 % (12.0-15.0); WHITE BLOOD COUNT 15.2 x10^3/uL (4.8-10.8)
[2019-05-07 05:55] LABS: CALCIUM 8.9 mg/dL (8.5-10.3); CREATININE 0.7 mg/dL (0.4-1.0); MAGNESIUM 2.2 mg/dL (1.7-2.8)
[2019-05-07] MEDS ORDERED: INSULIN ASPART 300 UNIT/3 ML PEN SUBQ SCH (08:00)
[2019-05-07] MEDS: APIXABAN 5 MG TABLET PO SCH ×2 (08:15→20:55)
[2019-05-07] MEDS: METOPROLOL TARTRATE 25 MG TABLET PO SCH ×2 (08:15→20:55)
[2019-05-07] MEDS: FUROSEMIDE 20 MG/2 ML VIAL IVP SCH (08:16)
[2019-05-07] MEDS: FAMOTIDINE 20 MG TABLET PO SCH (08:17)
[2019-05-07] MEDS: NYSTATIN CREAM 15 GM TUBE TOP SCH ×2 (08:17→21:02)
[2019-05-07] MEDS ORDERED: ENOXAPARIN 40 MG/0.4 ML SYRINGE SUBQ SCH (09:00)
[2019-05-07] MEDS: IPRATROPIUM 0.2 MG/ML NEB INH SCH ×4 (09:10→18:00)
[2019-05-07] MEDS: LEVALBUTEROL 1.25 MG/3 ML NEB INH PRN ×3 (09:10→18:00)
[2019-05-07] MEDS: BUDESONIDE 0.5 MG/2 ML NEB INH SCH ×2 (09:10→18:00)
--- NOTE | 2019-05-07 11:31 | PROVIDER PROGRESS NOTE ---
Assessment/Plan - Problem List (1) Dyspnea Qualifiers: Dyspnea type: shortness of breath Qualified Code(s): R06.02 - Shortness of breath; R06.00 - Dyspnea, unspecified; R06.01 - Orthopnea Assessment/Plan: 05/07 pt report she feel better and her breath is better. pt has 93% sats on 2.5 liter of O2. pt took 2-3 liter of O2 by NC at home. continue breath treatment with Xopenex, Ipr, pulmocort solu-medrol supplement of O2 as needed Presenting symptoms are more concerning for her COPD exacerbation. pt only had mild lower extremity edema. Her last ECHO in 04/08 revealed normal EF and right normal pressure. BNP 343 today as her baseline. CT of her chest reveals stable size of the nodule, no evidence of disease progression. breath treatment with Xopenex, Ipr, pulmocort solu-medrol supplement of O2 as needed (2) Atrial fibrillation with rapid ventricular response Conclusion/Plan: 05/07 controlled. HR is 75 now. continue home Metoprolol Bid pt Resented with heart rates in the 110s to 120s. Troponin is negative. Her electrolytes are optimized. We will start her home metoprolol 75 mg twice a day. continue Eliquis 5 mg twice a day tele and vital monitor (3) COPD exacerbation Conclusion/Plan: 05/07 pt feel her breath is better. pt has 93% sats on 2.5 liter of O2. pt took 2-3 liter of O2 by NC at home. pt's lung sound is better continue breath treatment with Xopenex, Ipr, pulmocort solu-medrol supplement of O2 as needed Her presenting symptoms are not consistent with a COPD exacerbation despite her reported improvement with albuterol and Advair. Her lungs are diminished in the bases and clear throughout without wheezing. We will continue Pulmicort and formoterol while inpatient. Albuterol as needed. Continue supplemental oxygen for goal saturation greater than 88%. add solu-metrol (4) Obstructive sleep apnea Conclusion/Plan: She is not on CPAP at home. She uses oxygen as needed overnight. 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 Will resume her home Metoprolol. (6) Coronary artery disease Conclusion/Plan: EKG is without signs of ischemia. Troponin has been negative. continue Eliquis and Lipitor. (7) Polycythemia Conclusion/Plan: Her hemoglobin is stable at this time. She can continue outpatient phlebotomy and follow-up with hematology. (8)diabetes 05/07. pt is taking steroid, slight increase SS insulin She has 7.9 A1C. pt did not take insulin at home. hold her home Metformin start SS, ACHS, and start hypoglycemia protocol (9)obesity She has 43 BMI, discuss with pt for weight loss (10) hx of lung cancer CT of her chest reveals stable size of the nodule, no evidence of disease progression. advise pt continue closely monitor - Current Meds Current Meds: Current Medications Generic Name Dose Route Start Last Admin Trade Name Freq PRN Reason Stop Dose Admin Acetaminophen 650 mg 05/06/19 13:12 05/07/19 00:15 Tylenol PO 650 mg Q4HR PRN Administration Pain 1 to 4 Apixaban 5 mg 05/06/19 21:00 05/07/19 08:15 Eliquis PO 5 mg BID KARINA Administration Budesonide 0.5 mg 05/06/19 19:00 05/07/19 09:10 Pulmicort INH 0.5 mg RTBID KARINA Administration Famotidine 20 mg 05/06/19 21:00 05/07/19 08:17 Pepcid PO Not Given DAILY KARINA Gabapentin 900 mg 05/06/19 21:00 05/06/19 21:29 Neurontin PO 900 mg QPM KARINA Administration Insulin Aspart 1 - 9 unit 05/07/19 08:00 05/07/19 08:17 Novolog SUBQ 3 unit 0800,1200,1700,2100 KARINA Administration Protocol Ipratropium Savage 0.5 mg 05/06/19 15:00 05/07/19 09:10 Atrovent INH 0.5 mg RTQ4H KARINA Administration Levalbuterol HCl 1.25 mg 05/06/19 13:19 05/07/19 09:10 Xopenex INH 1.25 mg Q4H PRN Administration Shortness of Air/Wheezing Metoprolol Tartrate 75 mg 05/06/19 14:00 05/07/19 08:15 Lopressor PO 75 mg BID KARINA Administration Nystatin 1 applic 05/06/19 21:00 05/07/19 08:17 Mycostatin Cream TOP 1 applic BID KARINA Administration Sodium Chloride 10 ml 05/06/19 13:12 05/06/19 14:46 Normal Saline Flush 0.9% IVP 10 ml PRN PRN Administration NEEDED PER PROVIDER ORDERS Sodium Chloride 10 ml 05/06/19 17:00 05/07/19 08:16 Normal Saline Flush 0.9% IVP 10 ml 0100,0900,1700 KARINA Administration Trazodone HCl 50 mg 05/06/19 21:00 05/06/19 21:29 Desyrel PO 50 mg QPM KARINA Administration - Lab Result Fish Bone Diagrams: 05/07/19 05:10 05/07/19 05:10 - Additional Planning My Orders: My Active Orders 05/06/19 13:12 Activity Orders [RC] Q2HR IO [RC] IOSHIFT Initiate Bowel Care Protocol [RC] .protocol Initiate Line Care Protocol [RC] QSHIFT Initiate Personal Care Protoco [RC] .protocol Oxygen Therapy [RC] .PRN Telemetry- [RC] Q4HR Vital Signs [RC] Q4HR Acetaminophen [Tylenol] 650 mg PO Q4HR PRN Ondansetron Inj [Zofran Inj] 4 mg IVP Q6HR PRN Sodium Chloride Flush 0.9% [Normal Saline Flush 0.9%] 10 ml IVP PRN PRN Zolpidem [Ambien] 5 mg PO QPM PRN Code Status [OTHERS] Routine Condition of Patient [OTHERS] Routine DVT Prophylaxis [OTHERS] Routine 05/06/19 13:15 IV Insert [RC] .ONCE SCDs [RC] QSHIFT 05/06/19 13:17 Blood Glucose Checks - Eating [RC] 0800,1200,1700,2100 Initiate Hypoglycemia Protocol [RC] .protocol 05/06/19 13:19 Levalbuterol [Xopenex] 1.25 mg INH Q4H PRN 05/06/19 14:00 Metoprolol Tartrate [Lopressor] 75 mg PO BID 05/06/19 15:00 Ipratropium [Atrovent] 0.5 mg INH RTQ4H 05/06/19 15:17 Nebulizer [Nebulizer/MDI Tx.] [RC] .BID 05/06/19 15:25 Code Status [OTHERS] Routine 05/06/19 17:00 Sodium Chloride Flush 0.9% [Normal Saline Flush 0.9%] 10 ml IVP 0100,0900,1700 05/06/19 19:00 Budesonide [Pulmicort] 0.5 mg INH RTBID 05/06/19 21:00 Apixaban [Eliquis] 5 mg PO BID Famotidine [Pepcid] 20 mg PO DAILY Nystatin Cream [Mycostatin Cream] 1 applic TOP BID traZODone [Desyrel] 50 mg PO QPM 05/06/19 Lunch Carb-controlled Diet [DIET] 05/07/19 08:00 Insulin Aspart [NovoLOG] 1 - 9 unit SUBQ 0800,1200,1700,2100 05/07/19 14:00 methylPREDNISolone SUCCINATE [SOLU-Medrol (40MG VIAL)] 40 mg IVP TID 05/08/19 05:00 BMP - BASIC METABOLIC PANEL [CHEM] DAILYLAB CBC - COMP BLD CT W/AUTO DIFF [HEME] DAILYLAB 05/08/19 09:00 Furosemide [Lasix] 20 mg PO DAILY 05/09/19 05:00 BMP - BASIC METABOLIC PANEL [CHEM] DAILYLAB CBC - COMP BLD CT W/AUTO DIFF [HEME] DAILYLAB 05/10/19 05:00 BMP - BASIC METABOLIC PANEL [CHEM] DAILYLAB CBC - COMP BLD CT W/AUTO DIFF [HEME] DAILYLAB Subjective - Subjective Patient Reports: Feeling Better Objective Vital Signs: Vital Signs - 24 hr 05/06/19 05/06/19 05/06/19 11:59 12:29 14:31 Temperature 36.5 C Heart Rate 123 H 127 H Heart Rate [ 126 H Brachial] Respiratory 20 24 18 Rate Blood Pressure 128/110 H 122/97 H Blood Pressure 120/84 H [Right Brachial artery] O2 Saturation 95 94 94 05/06/19 05/06/19 05/06/19 14:45 15:17 15:47 Temperature 36.5 C Heart Rate 88 Heart Rate [ 101 H Brachial] Respiratory 20 19 Rate Blood Pressure 120/84 H Blood Pressure 108/65 [Right Brachial artery] O2 Saturation 95 05/06/19 05/06/19 05/06/19 20:05 21:00 21:30 Temperature 36.3 C L Heart Rate 84 Heart Rate [ 100 Brachial] Respiratory 20 19 Rate Blood Pressure 116/72 Blood Pressure 116/72 [Right Brachial artery] O2 Saturation 94 05/07/19 05/07/19 05/07/19 00:03 05:00 07:36 Temperature 36.3 C L 36.6 C 36.5 C Heart Rate Heart Rate [ 84 107 H 94 Brachial] Respiratory 20 18 18 Rate Blood Pressure Blood Pressure 111/68 111/70 111/66 [Right Brachial artery] O2 Saturation 93 93 93 05/07/19 05/07/19 08:15 09:10 Temperature Heart Rate 75 Heart Rate [ Brachial] Respiratory 20 Rate Blood Pressure 111/66 Blood Pressure [Right Brachial artery] O2 Saturation Oxygen O2 Source Nasal cannula Oxygen Flow Rate 3 I&O (Last 24 Hrs): Intake and Output Totals x24h 05/05/19 05/06/19 05/07/19 23:59 23:59 23:59 Intake Total 850 Output Total 300 350 Balance 550 -350 General: Alert, Oriented x3, No acute distress HEENT: Atraumatic Neck: Supple, No thyromegaly Lymphatic: no adenopathy Neuro: Alert, Non Focal, Oriented Times 3 Cardiovascular: Regular rate, Normal S1, Normal S2 Respiratory: Chest non-tender, No respiratory distress Abdomen: Normal bowel sounds, Soft Extremities: Normal pulses - Results Results: Laboratory Results WBC 15.2 x10^3/uL (4.8-10.8) H 05/07/19 05:10 RBC 5.54 10^6/uL (4.20-5.40) H 05/07/19 05:10 Hgb 14.1 g/dL (12.0-16.0) 05/07/19 05:10 Hct 45.9 % (37.0-47.0) 05/07/19 05:10 MCV 82.9 fL (81.0-99.0) 05/07/19 05:10 MCH 25.5 pg (27.0-31.0) L 05/07/19 05:10 MCHC 30.7 g/dL (32.0-36.0) L 05/07/19 05:10 RDW 18.3 % (12.0-15.0) H 05/07/19 05:10 Plt Count 271 10^3/uL (130-450) 05/07/19 05:10 MPV 10.9 fL (7.9-10.8) H 05/07/19 05:10 Neut # (Auto) 13.4 10^3/uL (1.5-6.6) H 05/07/19 05:10 Lymph # (Auto) 1.2 10^3/uL (1.5-3.5) L 05/07/19 05:10 Latimer # (Auto) 0.4 10^3/uL (0.0-1.0) 05/07/19 05:10 Eos # (Auto) 0.0 10^3/uL (0.0-0.7) 05/07/19 05:10 Baso # (Auto) 0.1 10^3/uL (0.0-0.1) 05/07/19 05:10 Absolute Nucleated RBC 0.00 x10^3/uL 05/07/19 05:10 Nucleated RBC % 0.0 /100WBC 05/07/19 05:10 Sodium 140 mmol/L (135-145) 05/07/19 05:10 Potassium 3.8 mmol/L (3.5-5.0) 05/07/19 05:10 Chloride 96 mmol/L (101-111) L 05/07/19 05:10 Carbon Dioxide 34 mmol/L (21-32) H 05/07/19 05:10 Anion Gap 10.0 (6-13) 05/07/19 05:10 BUN 24 mg/dL (6-20) H 05/07/19 05:10 Creatinine 0.7 mg/dL (0.4-1.0) 05/07/19 05:10 Estimated GFR (MDRD) 81 (>89) L 05/07/19 05:10 Glucose 217 mg/dL (70-100) H 05/07/19 05:10 POC Whole Bld Glucose 191 mg/dL (70 - 100) H 05/07/19 07:27 Glycated Hemoglobin 7.9 % (4.6-6.2) H 05/06/19 07:55 Estim Average Glucose 180 (70-100) H 05/06/19 07:55 Calcium 8.9 mg/dL (8.5-10.3) 05/07/19 05:10 Magnesium 2.2 mg/dL (1.7-2.8) 05/07/19 05:10 Total Bilirubin 0.8 mg/dL (0.2-1.0) 05/06/19 07:55 AST 35 IU/L (10-42) 05/06/19 07:55 ALT 30 IU/L (10-60) 05/06/19 07:55 Alkaline Phosphatase 90 IU/L (42-121) 05/06/19 07:55 Troponin I High Sens 7.8 ng/L (2.3-14.8) 05/06/19 07:55 B-Natriuretic Peptide 343 pg/mL (5-100) H 05/06/19 07:55 Total Protein 7.6 g/dL (6.7-8.2) 05/06/19 07:55 Albumin 3.5 g/dL (3.2-5.5) 05/06/19 07:55 Globulin 4.1 g/dL (2.1-4.2) 05/06/19 07:55 Albumin/Globulin Ratio 0.9 (1.0-2.2) L 05/06/19 07:55 Lipase 24 U/L (22-51) 05/06/19 07:55 Urine Color YELLOW 05/06/19 15:14 Urine Clarity CLEAR (CLEAR) 05/06/19 15:14 Urine pH 6.0 PH (5.0-7.5) 05/06/19 15:14 Ur Specific [place] 1.015 (1.002-1.030) 05/06/19 15:14 Urine Protein NEGATIVE mg/dL (NEGATIVE) 05/06/19 15:14 Urine Glucose (UA) NEGATIVE mg/dL (NEGATIVE) 05/06/19 15:14 Urine Ketones NEGATIVE mg/dL (NEGATIVE) 05/06/19 15:14 Urine Occult Blood TRACE-INTA (NEGATIVE) 05/06/19 15:14 Urine Nitrite NEGATIVE (NEGATIVE) 05/06/19 15:14 Urine Bilirubin NEGATIVE (NEGATIVE) 05/06/19 15:14 Urine Urobilinogen 0.2 (NORMAL) E.U./dL (NORMAL) 05/06/19 15:14 Ur Leukocyte Esterase NEGATIVE (NEGATIVE) 05/06/19 15:14 Urine RBC None Seen /HPF (0-5) 05/06/19 15:14 Urine WBC 0-3 /HPF (0-5) 05/06/19 15:14 Ur Squamous Epith Cells RARE Squamous (<= Few) 05/06/19 15:14 Urine Bacteria None Seen /HPF (None Seen) 05/06/19 15:14 Urine Mucus Few Strands 05/06/19 15:14 Urine Culture Comments NOT INDICATED 05/06/19 15:14 - Procedures Procedures: Procedures REPLACEMENT OF LEFT LENS WITH SYNTH SUB, PERC APPROACH (07/20/16) Sepsis Event Note (H) - Evaluation Current Stage of Sepsis: Ruled out ABX Reporting Has patient been on IV antibiotics over the past 48 hours?: No Current Medications - Current Medications Current Medications: Active Medications Acetaminophen (Tylenol) 650 mg PO Q4HR PRN PRN Reason: Pain 1 to 4 Last Admin: 05/07/19 00:15 Dose: 650 mg Apixaban (Eliquis) 5 mg PO BID [facility] Last Admin: 05/07/19 08:15 Dose: 5 mg Budesonide (Pulmicort) 0.5 mg INH RTBID [facility] Last Admin: 05/07/19 09:10 Dose: 0.5 mg Famotidine (Pepcid) 20 mg PO DAILY [facility] Last Admin: 05/07/19 08:17 Dose: Not Given Furosemide (Lasix) 20 mg PO DAILY [facility] Gabapentin (Neurontin) 900 mg PO QPM [facility] Last Admin: 05/06/19 21:29 Dose: 900 mg Insulin Aspart (Novolog) 2 - 10 unit SUBQ 0800,1200,1700,2100 [facility]; Protocol Ipratropium Savage (Atrovent) 0.5 mg INH RTQ4H [facility] Last Admin: 05/07/19 09:10 Dose: 0.5 mg Levalbuterol HCl (Xopenex) 1.25 mg INH Q4H PRN PRN Reason: Shortness of Air/Wheezing Last Admin: 05/07/19 09:10 Dose: 1.25 mg Methylprednisolone (Solu-Medrol (40mg Vial)) 40 mg IVP TID [facility] Metoprolol Tartrate (Lopressor) 75 mg PO BID [facility] Last Admin: 05/07/19 08:15 Dose: 75 mg Nystatin (Mycostatin Cream) 1 applic TOP BID [facility] Last Admin: 05/07/19 08:17 Dose: 1 applic Ondansetron HCl (Zofran Inj) 4 mg IVP Q6HR PRN PRN Reason: Nausea / Vomiting Sodium Chloride (Normal Saline Flush 0.9%) 10 ml IVP PRN PRN PRN Reason: NEEDED PER PROVIDER ORDERS Last Admin: 05/06/19 14:46 Dose: 10 ml Sodium Chloride (Normal Saline Flush 0.9%) 10 ml IVP 0100,0900,1700 [facility] Last Admin: 05/07/19 08:16 Dose: 10 ml Trazodone HCl (Desyrel) 50 mg PO QPM [facility] Last Admin: 05/06/19 21:29 Dose: 50 mg Zolpidem Tartrate (Ambien) 5 mg PO QPM PRN PRN Reason: Insomnia Fluticasone/Salmeterol 250/50 [Advair 250 Mcg/50 Mcg] 1 puffs INH PRN PRN 05/03/15 Gabapentin 600 mg PO QPM 05/03/15 traZODone [Desyrel] 50 mg PO QPM 05/03/15 FLUoxetine [PROzac] 20 mg PO DAILY 12/30/18
[2019-05-07] MEDS: INSULIN ASPART 300 UNIT/3 ML PEN SUBQ SCH ×3 (11:40→20:56)
--- NOTE | 2019-05-07 13:24 | PHARMACY PROGRESS NOTE ---
- Best Possible Medication History Admit Date and Time: 05/06/19 1312 Processed by: Pharmacy Medication History completed: Yes Patient Interview: Completed Secondary Source(s): Pharmacy records (patient outpatient pharmacy), Insurance records As the person ultimately responsible for medication therapy, providers are able to order a medication from an existing home medication list in [facility] via the "Reconcile Routine" prior to Confirmation of that medication by legal support assistant. Such practice is discouraged except when the physician, in their clinical judgment, deems that a medical need exists for a medication without regard to previous use.
[2019-05-07] MEDS: SODIUM CHLORIDE FLUSH 0.9% 10 ML SYRINGE IVP PRN ×2 (13:48→21:58)
[2019-05-07] MEDS: GABAPENTIN 300 MG CAPSULE PO SCH (20:55)
[2019-05-07] MEDS: traZODone 50 MG TABLET PO SCH (21:52)
[2019-05-08 05:09] LABS: BASOPHILS % (AUTO) 0.2 %; HGB - HEMOGLOBIN 14.6 g/dL (12.0-16.0); LYMPHOCYTES # (AUTO) 0.9 10^3/uL (1.5-3.5); LYMPHOCYTES % (AUTO) 4.9 %; MEAN CORPUSCULAR HEMOGLOBIN 25.3 pg (27.0-31.0); MEAN CORPUSCULAR HGB CONC 30.9 g/dL (32.0-36.0); MEAN CORPUSCULAR VOLUME 81.8 fL (81.0-99.0); MEAN PLATELET VOLUME 10.9 fL (7.9-10.8); MONOCYTES # (AUTO) 0.6 10^3/uL (0.0-1.0); MONOCYTES % (AUTO) 3.3 %; NEUTROPHILS # (AUTO) 16.7 10^3/uL (1.5-6.6); NEUTROPHILS % (AUTO) 90.6 %; PLT - PLATELET COUNT 312 10^3/uL (130-450); RED BLOOD COUNT 5.78 10^6/uL (4.20-5.40); WHITE BLOOD COUNT 18.4 x10^3/uL (4.8-10.8)
[2019-05-08 05:15] LABS: CREATININE 0.6 mg/dL (0.4-1.0)
[2019-05-08] MEDS: methylPREDNISolone SUCCINATE 40 MG/ML VIAL IVP SCH (05:33)
[2019-05-08] MEDS: SODIUM CHLORIDE FLUSH 0.9% 10 ML SYRINGE IVP PRN (05:34)
[2019-05-08] MEDS: IPRATROPIUM 0.2 MG/ML NEB INH SCH ×2 (07:34→11:46)
[2019-05-08] MEDS: BUDESONIDE 0.5 MG/2 ML NEB INH SCH (07:34)
[2019-05-08] MEDS: LEVALBUTEROL 1.25 MG/3 ML NEB INH PRN ×2 (07:34→11:46)
[2019-05-08] MEDS: APIXABAN 5 MG TABLET PO SCH (08:12)
[2019-05-08] MEDS: METOPROLOL TARTRATE 25 MG TABLET PO SCH (08:13)
[2019-05-08] MEDS: INSULIN ASPART 300 UNIT/3 ML PEN SUBQ SCH ×2 (08:15→11:17)
[2019-05-08] MEDS: FAMOTIDINE 20 MG TABLET PO SCH (08:16)
[2019-05-08] MEDS: NYSTATIN CREAM 15 GM TUBE TOP SCH (08:16)
[2019-05-08] MEDS ORDERED: FUROSEMIDE 20 MG TABLET PO SCH (09:00)
--- NOTE | 2019-05-08 10:10 | Discharge Plan ---
Discharge Plan Problem Reviewed?: Yes Disposition: Home, Self Care Condition: Stable Prescriptions: Furosemide [Lasix] 80 mg PO DAILY #20 tablet Diet: Diabetic Activity Restrictions: Activity as Tolerated Shower Restrictions: No (fall precaution, caregiver closely monitor) Instruction Topics: Furosemide tablets, ED Dyspnea Shortness of Breath Health Concerns: COPD, afib with RVR Plan of Treatment: after treated within hospital, your shortness of breath is greatly improved, you agree to be d/c today. advise pt finish your home meds prednisone with taper dosage, continue breathing treatment as your home meds as needed. Your heart pulse is controlled now, advise you continue your home meds as the schedule. Care Goals: stabilization and improvement of your medical conditions. 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 should your symptoms return or worsen, you may present ER or call 911 for help. Follow-Up Care: [facility] - Pulmonary No Smoking: If you smoke, Please STOP! Call for help. Follow-up with: Eve Miles PA [Primary Care Provider] -
--- NOTE | 2019-05-08 10:34 | DISCHARGE SUMMARY ---
Discharge Summary Admit Date: 05/06/19 Discharge Date: 05/08/19 Discharging Provider: MANRIQUEZ Primary Care Provider: Dr. Miles Condition at Discharge: Stable Discharge Disposition: 01 Home, Self Care Discharge Facility Name: home - DIAGNOSES Admission Diagnoses: (1) Dyspnea (2) Atrial fibrillation with rapid ventricular response (3) COPD exacerbation (4) Obstructive sleep apnea (5) Hypertension (6) Coronary artery disease (7) Polycythemia (8)diabetes (9)obesity (10) hx of lung cancer Discharge Diagnoses with Status of Each Condition: (1)respiratory distress with hypoxia resolved/stable. pt has no more acute respiratory distress. pt has 93% sats on 2.5 liter of O2. pt take 2-3 liter of O2 at home. (2) Atrial fibrillation with rapid ventricular response resolved. HR is controlled (3) COPD exacerbation stable. pt has no more acute respiratory distress after treated in hospital. pt has home prednisone with taper dosage. (4) Obstructive sleep apnea stable (5) Hypertension stable (6) Coronary artery disease stable. pt state her home lasix meds was not enough before she saw her PCP and our insurance send meds to her, ask me to prescribe her home meds lasix for one to two weeks. (7) Polycythemia stable (8)diabetes stable (9)obesity stable, advise pt loss of weight (10) hx of lung cancer stable. CT of chest reveal stable - HPI History of Present Illness: Ms. Zepeda is a 78-year-old female with a PMH significant for COPD with oxygen use as needed, recurrent shortness of breath, obstructive sleep apnea, polycythemia, neuropathy, hypertension, coronary artery disease with stenting in the past who presents, afib with eliquis, and diabetes today complaining of worsening shortness of breath over the past week. pt was admitted about 3 weeks ago with similar symptoms of shortness of breath. She states her symptoms have progressively become more severe on today. She has associated worsening lower extremity edema over the past week. She denies fevers or chills. she report she felt some chest pain when she had deep breath or cough. But now she denies any chest pain. She reports no sick contacts. She reports no history of heart failure. She did have a stent placed over 10 years ago in [place] but denies chest pain at this time. She report she had hx of polycythemia and gets monthly phlebotomies before. In the emergency department, She is found to be in atrial fibrillation with rates around 110- 120s. Her labs did reveal a white count of 14 with a left shift. Her initial troponin was negative. BNP was 343. Rest of her labs unremarkable. Given her respiratory symptoms and uncontrolled afib, medicine was consulted for admission. - HOSPITAL COURSE Hospital Course: pt was admitted for shortness of breath, afib wth RVR, COPD exacerbation. pt was treated with steroid, RT treatment and beta-cuco. after treatment, pt has no more acute respiratory distress, she is comfortable. pt had 93% sats on 2.5 liter of O2. she is happy to be d/c today. The detail hospital course is as the below. (1)respiratory distress with hypoxia resolved/stable. pt has no more acute respiratory distress. pt has 93% sats on 2.5 liter of O2. pt take 2-3 liter of O2 at home. (2) Atrial fibrillation with rapid ventricular response resolved. HR is controlled (3) COPD exacerbation stable. pt has no more acute respiratory distress after treated in hospital. pt has home prednisone with taper dosage. (4) Obstructive sleep apnea stable (5) Hypertension stable (6) Coronary artery disease stable. pt state her home lasix meds was not enough before she saw her PCP and our insurance send meds to her, ask me to prescribe her home meds lasix for one to two weeks. (7) Polycythemia stable (8)diabetes stable (9)obesity stable, advise pt loss of weight (10) hx of lung cancer stable. CT of chest reveal stable - ALLERGIES Allergies/Adverse Reactions: Allergies Allergy/AdvReac Type Severity Reaction Status Date / Time No Known Drug Allergies Allergy Verified 04/18/19 11:43 - MEDICATIONS Home Medications: Ambulatory Orders Medication Instructions Recorded Confirmed Fluticasone/Salmeterol 250/50 1 puffs INH BID 05/03/15 04/12/19 [Advair 250 Mcg/50 Mcg] Gabapentin 900 mg PO QPM 05/03/15 05/07/19 traZODone [Desyrel] 50 mg PO QPM 05/03/15 05/07/19 Albuterol 2.5 mg INH Q4HR PRN #50 neb 04/15/19 05/07/19 Apixaban [Eliquis] 5 mg PO BID #20 tablet 04/15/19 05/07/19 Metoprolol Tartrate [Lopressor] 75 mg PO BID #60 tablet 04/15/19 05/07/19 predniSONE [Deltasone] 10 mg PO [id number] #42 tab 04/18/19 05/07/19 Atorvastatin [Lipitor] 5 mg PO QPM 05/07/19 05/07/19 Furosemide [Lasix] 80 mg PO DAILY 05/07/19 05/07/19 Ipratropium [Atrovent] 0.5 mg INH Q6H PRN 05/07/19 05/07/19 amLODIPine [Norvasc] 5 mg PO DAILY 05/07/19 05/07/19 metFORMIN [Glucophage] 500 mg PO BID 05/07/19 05/07/19 Furosemide [Lasix] 80 mg PO DAILY #20 tablet 05/08/19 - PHYSICAL EXAM AT DISCHARGE General Appearance: positive: No acute distress, Alert. negative: Lethargic Eyes Bilateral: positive: Normal inspection, PERRL, EOMI, No lid inflammation ENT: positive: Pharynx nml, No signs of dehydration. negative: Purulent nasal drainage Neck: positive: Nml inspection, Thyroid nml, No JVD, Trachea midline. negative: Thyromegaly, Lymphadenopathy (R), Lymphadenopathy (L), Stiff neck, Tracheal deviation Respiratory: positive: Chest non-tender, No respiratory distress. negative: Wheezes, Rales, Rhonchi Cardiovascular: positive: Regular rate & rhythm, No murmur, No gallop. negative: Irregularly irregular, Extrasystoles, Tachycardia, Bradycardia, Systolic murmur, Diastolic murmur Peripheral Pulses: positive: 2+ Abdomen: positive: Non-tender, No organomegaly, Nml bowel sounds, No distention. negative: Tenderness, Guarding, Rebound Back: positive: Nml inspection. negative: CVA tenderness (R), CVA tenderness (L) Skin: positive: Color nml, No rash, Warm, Dry. negative: Cyanosis, Diaphoresis, Pallor Extremities: positive: Non-tender, Full ROM, Nml appearance. negative: Calf tenderness, Shaan's sign/cords Neurologic/Psychiatric: positive: Oriented x3, Motor nml, Sensation nml, Mood/affect nml. negative: Weakness, Sensory loss, Facial droop, Slurred/abnml speech, Depressed mood/affect - LABS Result Diagrams: 05/08/19 05:00 05/08/19 05:00 - SEPSIS Current Stage of Sepsis: Ruled out - FOLLOW UP Follow Up: after treated within hospital, your shortness of breath is greatly improved, you agree to be d/c today. advise pt finish your home meds prednisone with taper dosage, continue breathing treatment as your home meds as needed. Your heart pulse is controlled now, advise you continue your home meds as the schedule. 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 should your symptoms return or worsen, you may present ER or call 911 for help. - TIME SPENT Time Spent in Discharge (Minutes): 45
[2019-05-08 11:24] VITALS: BP 116/61
[2019-05-08] MEDS ORDERED: methylPREDNISolone SUCCINATE 40 MG/ML VIAL IVP SCH (21:00)
== END 2019-05-08 14:08 | disposition home or self-care (01) | DRG 191 ==
LOC: EDUNIT# → ED 07:13 → MS2 13:12
PROVIDERS: ADMIT Nurse Practitioner Gerontology; ATTEND Nurse Practitioner Gerontology
DX: J44.1 Chronic obstructive pulmonary disease with (acute) exacerbation (principal); I11.0 Hypertensive heart disease with heart failure; I50.9 Heart failure, unspecified; Z68.41 Body mass index [BMI] 40.0-44.9, adult; I48.91 Unspecified atrial fibrillation; G47.30 Sleep apnea, unspecified; E11.9 Type 2 diabetes mellitus without complications; G47.33 Obstructive sleep apnea (adult) (pediatric); R09.02 Hypoxemia; Z79.51 Long term (current) use of inhaled steroids; I10 Essential (primary) hypertension; I25.119 Atherosclerotic heart disease of native coronary artery with unspecified angina pectoris; E11.40 Type 2 diabetes mellitus with diabetic neuropathy, unspecified; E66.9 Obesity, unspecified; D75.1 Secondary polycythemia; Z66 Do not resuscitate; Z99.81 Dependence on supplemental oxygen; Z95.5 Presence of coronary angioplasty implant and graft; Z79.01 Long term (current) use of anticoagulants; Z79.899 Other long term (current) drug therapy; Z79.84 Long term (current) use of oral hypoglycemic drugs; Z86.73 Personal history of transient ischemic attack (TIA), and cerebral infarction without residual deficits; Z85.110 Personal history of malignant carcinoid tumor of bronchus and lung; Z90.2 Acquired absence of lung [part of]; Z87.891 Personal history of nicotine dependence
CPT/HCPCS: 36415; 71046; 71250; 80048; 80053; 81001; 83036; 83690; 83735; 83880; 84484; 85025; 93005; 94640; 96365; 96375; 96376; 99284; 99285; A9270; J7626; 87086

== ENCOUNTER 2019-06-08 04:06 | Outpatient (CLI) | payer MEDICARE | END 2019-06-08 04:07 | disposition EMS.NT | LOC: EMS 04:06 | PROVIDERS: ATTEND Surgery | DX: Z03.89 Encounter for observation for other suspected diseases and conditions ruled out (principal) ==

== ENCOUNTER 2019-06-09 08:00 | Outpatient (CLI) | payer MEDICARE ==
[2019-06-09 18:30] LABS: BASOPHILS # (AUTO) 0.1 10^3/uL (0.0-0.1); BASOPHILS % (AUTO) 0.5 %; EOSINOPHILS % (AUTO) 0.2 %; HGB - HEMOGLOBIN 15.2 g/dL (12.0-16.0); LYMPHOCYTES # (AUTO) 2.3 10^3/uL (1.5-3.5); LYMPHOCYTES % (AUTO) 12.9 %; MEAN CORPUSCULAR HEMOGLOBIN 25.8 pg (27.0-31.0); MEAN CORPUSCULAR HGB CONC 30.5 g/dL (32.0-36.0); MEAN CORPUSCULAR VOLUME 84.7 fL (81.0-99.0); MEAN PLATELET VOLUME 12.5 fL (7.9-10.8); MONOCYTES # (AUTO) 1.5 10^3/uL (0.0-1.0); MONOCYTES % (AUTO) 8.4 %; NEUTROPHILS # (AUTO) 13.5 10^3/uL (1.5-6.6); NEUTROPHILS % (AUTO) 76.9 %; PLT - PLATELET COUNT 215 10^3/uL (130-450); RED BLOOD COUNT 5.89 10^6/uL (4.20-5.40); RED CELL DISTRIBUTION WIDTH 21.1 % (12.0-15.0); WHITE BLOOD COUNT 17.5 x10^3/uL (4.8-10.8)
[2019-06-09 18:42] LABS: ALBUMIN 3.8 g/dL (3.2-5.5); ALBUMIN/GLOBULIN RATIO 1.2 (1.0-2.2); ALKALINE PHOSPHATASE 56 IU/L (42-121); ALT ALANINE AMINOTRANSFERASE 38 IU/L (10-60); AST ASPARTATE AMINOTRANSFERASE 31 IU/L (10-42); BILIRUBIN,TOTAL 0.9 mg/dL (0.2-1.0); BUN - BLOOD UREA NITROGEN 26 mg/dL (6-20); CALCIUM 9.2 mg/dL (8.5-10.3); CARBON DIOXIDE - CO2 30 mmol/L (21-32); CHLORIDE 97 mmol/L (101-111); CHOL/HDL RATIO 3.1 (<4.4); CHOLESTEROL 147 mg/dL; CREATININE 0.6 mg/dL (0.4-1.0); GFR - MDRD 97 (>89); GLUCOSE 138 mg/dL (70-100); HDL CHOLESTEROL 48 mg/dL; LDL CHOLESTEROL,CALCULATED 80 mg/dL; LDL/HDL RATIO 1.7 (<4.4); SODIUM 140 mmol/L (135-145); VLDL CHOLESTEROL 19 mg/dL
[2019-06-09 18:49] LABS: CREATININE,URINE 120.8 mg/dL; MICROALBUM/CREATININE RATIO,UR 49.7 ug/mg (<30.0)
[2019-06-09 18:54] LABS: PLATELET MORPHOLOGY RARE GIANT PLATELETS (NORMAL)
[2019-06-09 18:55] LABS: PLATELET ESTIMATE, MANUAL NORMAL (130-450,000) (NORMAL); RBC MORPHOLOGY (MULTIPLE) 1+ ANISOCYTOSIS (NORMAL)
[2019-06-09 19:42] LABS: HB2 TOTAL 15.5 g/dL; HEMOGLOBIN A1C 0.92 g/dL; HEMOGLOBIN A1C % 7.6 % (4.6-6.2)
[2019-06-10 11:54] LABS: HEPATITIS B SURFACE ANTIGEN NON-REACTIVE (NON-REACTIVE)
== END 2019-06-09 23:59 | disposition home or self-care (01) ==
LOC: LAB.WCP 08:00
PROVIDERS: ATTEND Physician Assistant
DX: E78.5 Hyperlipidemia, unspecified (principal); Z79.899 Other long term (current) drug therapy; R79.89 Other specified abnormal findings of blood chemistry; R60.9 Edema, unspecified
CPT/HCPCS: 36415; 80053; 80061; 82043; 82570; 83036; 83721; 85025; 86704; 87340

== ENCOUNTER 2019-06-17 16:00 | Outpatient (CLI) | payer MEDICARE ==
[2019-06-18 20:26] LABS: CREATININE,URINE 49.2 mg/dL
== END 2019-06-17 23:59 | disposition home or self-care (01) ==
LOC: LAB.R 16:00
PROVIDERS: ATTEND Physician Assistant
DX: R60.9 Edema, unspecified (principal); R80.9 Proteinuria, unspecified
CPT/HCPCS: 82570; 84156

== ENCOUNTER 2019-07-06 23:52 | Outpatient (CLI) | payer MEDICARE | END 2019-07-06 23:53 | disposition critical access hospital (66) | LOC: EMS 23:52 | PROVIDERS: ATTEND Surgery | DX: R52 Pain, unspecified (principal) | CPT/HCPCS: A0425; A0429 ==

== ENCOUNTER 2019-07-07 00:14 | Emergency (ER) | payer MEDICARE ==
--- NOTE | 2019-07-07 00:21 | ED Physician Documentation ---
History of Present Illness - Stated complaint Stated Complaint: RF PAIN - History obtained from History obtained from: Patient (Patient is a 79-year-old female who reports pain to her right gluteus shakeel region. [place] any abdominal pain chest pain fevers chills night sweats or shortness of breath she denies any bowel or bladder dysfunction or saddle anesthesia she reports she is able to ambulate she is requesting a cortisone shot and then would like to follow-up with her primary care provider she denies any dysuria hematuria or flank pain. She denies any recent falls or traumas she reports that she has had previous episodes of sciatica she denies any pain radiating down her right lower extremity but reports pain directly in her gluteus shakeel.) Review of Systems Constitutional: reports: Reviewed and negative Eyes: reports: Reviewed and negative Ears: reports: Reviewed and negative Nose: reports: Reviewed and negative Throat: reports: Reviewed and negative Cardiac: reports: Reviewed and negative Respiratory: reports: Reviewed and negative GI: reports: Reviewed and negative : reports: Reviewed and negative Skin: reports: Reviewed and negative Musculoskeletal: reports: Back pain Neurologic: reports: Reviewed and negative Psychiatric: reports: Reviewed and negative Endocrine: reports: Reviewed and negative Immunocompromised: reports: Reviewed and negative PD PAST MEDICAL HISTORY - Past Medical History Cardiovascular: Hypertension, Coronary artery disease, Angina Respiratory: COPD, Sleep apnea, Other Neuro: CVA Endocrine/Autoimmune: Type 2 diabetes GI: None : Incontinence HEENT: Other Psych: None Musculoskeletal: None Derm: None - Past Surgical History Past Surgical History: Yes 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 Cardiovascular: Coronary stent, Lobectomy HEENT: Cataracts, Tonsil/Adenoidectomy - Present Medications Home Medications: Ambulatory Orders Medication Instructions Recorded Confirmed Gabapentin 900 mg PO QPM 05/03/15 07/07/19 traZODone [Desyrel] 50 mg PO QPM 05/03/15 07/07/19 Albuterol 2.5 mg INH Q4HR PRN #50 neb 04/15/19 07/07/19 Apixaban [Eliquis] 5 mg PO BID #20 tablet 04/15/19 07/07/19 Metoprolol Tartrate [Lopressor] 75 mg PO BID #60 tablet 04/15/19 07/07/19 Atorvastatin [Lipitor] 5 mg PO QPM 05/07/19 07/07/19 Ipratropium [Atrovent] 0.5 mg INH Q6H PRN 05/07/19 07/07/19 amLODIPine [Norvasc] 5 mg PO DAILY 05/07/19 07/07/19 metFORMIN [Glucophage] 500 mg PO BID 05/07/19 07/07/19 Furosemide [Lasix] 80 mg PO DAILY #20 tablet 05/08/19 07/07/19 Hydrocodone/Acetaminophen [[place] 1 each PO Q6HR PRN #7 tablet 07/07/19 5-325 Tablet] - Allergies Allergies/Adverse Reactions: Allergies Allergy/AdvReac Type Severity Reaction Status Date / Time No Known Drug Allergies Allergy Verified 07/07/19 00:23 - Social History Does the pt smoke?: No Smoking Status: Never smoker Does the pt drink ETOH?: No Does the pt have substance abuse?: No - Immunizations Immunizations are current?: Yes PD ED PE NORMAL - Vitals Vital signs reviewed: Yes - General General: Alert and oriented X 3, No acute distress - HEENT HEENT: PERRL - Neck Neck: Supple, no meningeal sign - Cardiac Cardiac: RRR, No murmur - Respiratory Respiratory: Clear bilaterally - Abdomen Abdomen: Normal bowel sounds, Soft, Non tender, Non distended - Back Back: No spinal TTP, Other (There is tenderness over the right sacroiliac joint there is also tenderness over the right piriformis she is got a negative straight leg test she is able to ambulate she can stand up on her toes and her heels proprioception is intact of bilateral great toes reflexes are 2+ and symmetric in bilateral patellar and Achilles sensations intact to light touch. 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 Neurovascularly intact.) - Psych Psych: Normal mood, Normal affect Results - Vitals Vitals: Vital Signs - 24 hr 07/07/19 07/07/19 00:16 01:28 Temperature 36.8 C Heart Rate 65 76 Respiratory 16 18 Rate Blood Pressure 144/99 H 125/81 H O2 Saturation 92 97 Oxygen O2 Source Room air PD MEDICAL DECISION MAKING - ED course Complexity details: other (History and physical exam are consistent with acute right piriformis syndrome and right sacroiliitis patient will be given 1 intramuscular dose of steroids and discharged home with close follow-up on Sunday.) Departure - Departure Disposition: , Self Care Clinical Impression: Spasm of right piriformis muscle, SI (sacroiliac) joint inflammation Condition: Good Instructions: ED Low Back Pain Injury Follow-Up: Eve Miles PA [Primary Care Provider] - Tomorrow Prescriptions: Hydrocodone/Acetaminophen [[place] 5-325 Tablet] 1 each PO Q6HR PRN #7 tablet PRN Reason: Pain Discharge Date/Time: 07/07/19 01:35
[2019-07-07] MEDS ORDERED: methylPREDNISolone SUCCINATE 125 MG/2 ML VIAL IM STA (00:42)
[2019-07-07 01:29] VITALS: BP 125/81
== END 2019-07-07 01:35 | disposition home or self-care (01) ==
LOC: EDUNIT# → ED 00:14
DX: M62.830 Muscle spasm of back (principal); M46.1 Sacroiliitis, not elsewhere classified; R32 Unspecified urinary incontinence; I10 Essential (primary) hypertension; I25.119 Atherosclerotic heart disease of native coronary artery with unspecified angina pectoris; J44.9 Chronic obstructive pulmonary disease, unspecified; G47.30 Sleep apnea, unspecified; E11.9 Type 2 diabetes mellitus without complications; Z95.5 Presence of coronary angioplasty implant and graft; Z79.01 Long term (current) use of anticoagulants; Z86.73 Personal history of transient ischemic attack (TIA), and cerebral infarction without residual deficits
CPT/HCPCS: 96372; 99283

== ENCOUNTER 2019-10-04 08:09 | Outpatient (CLI) | payer MEDICARE | END 2019-10-04 08:10 | disposition critical access hospital (66) | LOC: EMS 08:09 | PROVIDERS: ATTEND Surgery | DX: R06.02 Shortness of breath (principal) | CPT/HCPCS: A0425; A0427 ==

== ENCOUNTER 2019-10-04 08:30 | Inpatient (IN) | payer MEDICARE ==
[2019-10-04] MEDS ORDERED: FUROSEMIDE 100 MG/10 ML VIAL IVP STA (08:46)
[2019-10-04] MEDS ORDERED: DILTIAZEM 50 MG/10 ML VIAL IVP ONE (08:47)
--- NOTE | 2019-10-04 08:50 | ED Physician Documentation ---
PD HPI DYSPNEA - Stated complaint Stated Complaint: SOA - History obtained from History obtained from: Patient, EMS - History of Present Illness Timing - onset: Today Timing - onset during: Rest Timing - duration: Hours Timing - details: Gradual onset, Still present Improved by: O2, Inhaler/neb Worsened by: Exertion, Laying flat, Coughing Similar symptoms before: Diagnosis (CHF, COPD) Recently seen: Not recently seen - Additional information Additional information: 79-year-old female with a history of atrial fibrillation on Eliquis, CHF, COPD and CAD has developed increasing dyspnea she had some relief of this yesterday with her nebulizer but spent the entire night up and she was worried this would keep her awake if she did this again. She called the ambulance medics arrived to find her with an oxygen saturation of 77% on 3 L nasal cannula.They were able to provide a nebulized treatment with improvement. The patient is not able to provide adequate history. 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 Cardiovascular: Coronary stent, Lobectomy HEENT: Cataracts, Tonsil/Adenoidectomy - Present Medications Home Medications: Ambulatory Orders Medication Instructions Recorded Confirmed Gabapentin 900 mg PO QPM 05/03/15 07/07/19 traZODone [Desyrel] 50 mg PO QPM 05/03/15 07/07/19 Albuterol 2.5 mg INH Q4HR PRN #50 neb 04/15/19 07/07/19 Apixaban [Eliquis] 5 mg PO BID #20 tablet 04/15/19 07/07/19 Metoprolol Tartrate [Lopressor] 75 mg PO BID #60 tablet 04/15/19 07/07/19 Atorvastatin [Lipitor] 5 mg PO QPM 05/07/19 07/07/19 Ipratropium [Atrovent] 0.5 mg INH Q6H PRN 05/07/19 07/07/19 amLODIPine [Norvasc] 5 mg PO DAILY 05/07/19 07/07/19 metFORMIN [Glucophage] 500 mg PO BID 05/07/19 07/07/19 Furosemide [Lasix] 80 mg PO DAILY #20 tablet 05/08/19 07/07/19 Hydrocodone/Acetaminophen [[place] 1 each PO Q6HR PRN #7 tablet 07/07/19 5-325 Tablet] - Allergies Allergies/Adverse Reactions: Allergies Allergy/AdvReac Type Severity Reaction Status Date / Time No Known Drug Allergies Allergy Verified 07/07/19 00:23 - Social History Does the pt smoke?: No Smoking Status: Never smoker Does the pt drink ETOH?: No Does the pt have substance abuse?: No - Immunizations Immunizations are current?: Yes - POLST Patient has POLST: No PD ED PE NORMAL - Vitals Vital signs reviewed: Yes - General General: Well developed/nourished, Other (Overweight 79-year-old female breathing rapidly responsive but not interactive.) - HEENT HEENT: Atraumatic, PERRL, EOMI - Neck Neck: Supple, no meningeal sign, No bony TTP - Cardiac Cardiac: Other (Rapid irregularly irregular rate and rhythm with 2 out of 6 holosystolic murmur at the lower sternal border) - Respiratory Respiratory: Other (Tachypnea at rest with apparent poor air movement and end inspiratory crackles bibasilar worse on the left.) - Abdomen Abdomen: Soft, Non tender, Other (Obese) - Back Back: No CVA TTP, No spinal TTP - Derm Derm: Normal color, Warm and dry, No rash - Extremities Extremities: Other (There is pitting edema bilaterally to the lower extremities.) - Neuro Neuro: No motor deficit, No sensory deficit Eye Opening: To Voice Motor: Obeys Commands Verbal: Confused GCS Score: 13 - Psych Psych: Normal mood, Normal affect Results - Vitals Vitals: Vital Signs - 24 hr 10/04/19 10/04/19 10/04/19 08:46 08:56 09:08 Temperature 36.4 C L Heart Rate 68 142 H 66 Respiratory 38 H 22 Rate Blood Pressure 155/122 H 101/63 O2 Saturation 94 94 10/04/19 10/04/19 10/04/19 09:23 09:35 10:05 Temperature Heart Rate 78 71 85 Respiratory 20 18 21 Rate Blood Pressure 128/89 H 93/61 86/77 L O2 Saturation 96 96 98 Oxygen O2 Source BIPAP - EKG (time done) 0840 Rate: Rate (enter#) (132) Rhythm: Atrial fibrillation Intervals: Wide QRS QRS: Low voltage Compare to prior EKG: Changed from prior EKG (SPT 05-06-2019 rate has increased, criteria for LVH is no longer prenent. ) Computer interpretation: Agree with computer - Labs Labs: Laboratory Tests 10/04/19 10/04/19 10/04/19 08:50 08:50 08:50 WBC 19.7 H RBC 5.72 H Hgb 15.1 Hct 51.3 H MCV 89.7 MCH 26.4 L MCHC 29.4 L RDW 17.2 H Plt Count 313 MPV 11.8 H Neut # (Auto) 15.6 H Lymph # (Auto) 2.5 [place] # (Auto) 1.1 H Eos # (Auto) 0.2 Baso # (Auto) 0.1 Absolute Nucleated RBC 0.00 Nucleated RBC % 0.0 Bld Gas Analysis Time Sample Site ABG pH ABG pCO2 ABG pO2 ABG HCO3 ABG Total CO2 ABG O2 Saturation ABG Base Excess Miah Test O2 Delivery Device FiO2 EPAP IPAP Sodium 140 Potassium 5.0 Chloride 99 L Carbon Dioxide 32 Anion Gap 9.0 BUN 24 H Creatinine 0.8 Estimated GFR (MDRD) 70 L Glucose 257 H Lactic Acid Calcium 8.5 Total Bilirubin 0.7 AST 42 ALT 30 Alkaline Phosphatase 128 H Troponin I High Sens 12.2 B-Natriuretic Peptide Total Protein 8.0 Albumin 3.3 Globulin 4.7 H Albumin/Globulin Ratio 0.7 L Lipase 28 Urine Color Urine Clarity Urine pH Ur Specific [place] Urine Protein Urine Glucose (UA) Urine Ketones Urine Occult Blood Urine Nitrite Urine Bilirubin Urine Urobilinogen Ur Leukocyte Esterase Urine RBC Urine WBC Urine WBC Clumps Ur Epithelial Cells Ur Squamous Epith Cells Urine Bacteria Ur Microscopic Review Urine Culture Comments 10/04/19 10/04/19 10/04/19 08:50 09:15 09:45 WBC RBC Hgb Hct MCV MCH MCHC RDW Plt Count MPV Neut # (Auto) Lymph # (Auto) [place] # (Auto) Eos # (Auto) Baso # (Auto) Absolute Nucleated RBC Nucleated RBC % Bld Gas Analysis Time 0952 Sample Site RIGHT RADIAL ABG pH 7.29 L ABG pCO2 63 H* ABG pO2 84 ABG HCO3 29.8 H ABG Total CO2 31.7 H ABG O2 Saturation 97 ABG Base Excess 1.5 Miah Test POSITIVE O2 Delivery Device BiPAP FiO2 35.00 EPAP 5 IPAP 16 Sodium Potassium Chloride Carbon Dioxide Anion Gap BUN Creatinine Estimated GFR (MDRD) Glucose Lactic Acid Calcium Total Bilirubin AST ALT Alkaline Phosphatase Troponin I High Sens B-Natriuretic Peptide 537 H Total Protein Albumin Globulin Albumin/Globulin Ratio Lipase Urine Color YELLOW Urine Clarity CLOUDY Urine pH 5.5 Ur Specific [place] >=1.030 H Urine Protein >=300 H Urine Glucose (UA) NEGATIVE Urine Ketones NEGATIVE Urine Occult Blood SMALL H Urine Nitrite NEGATIVE Urine Bilirubin NEGATIVE Urine Urobilinogen 0.2 (NORMAL) Ur Leukocyte Esterase SMALL H Urine RBC 0-5 Urine WBC >25 H Urine WBC Clumps PRESENT Ur Epithelial Cells RARE Transitional Ur Squamous Epith Cells FEW Squamous Urine Bacteria Moderate H Ur Microscopic Review INDICATED Urine Culture Comments INDICATED 10/04/19 09:54 WBC RBC Hgb Hct MCV MCH MCHC RDW Plt Count MPV Neut # (Auto) Lymph # (Auto) [place] # (Auto) Eos # (Auto) Baso # (Auto) Absolute Nucleated RBC Nucleated RBC % Bld Gas Analysis Time Sample Site ABG pH ABG pCO2 ABG pO2 ABG HCO3 ABG Total CO2 ABG O2 Saturation ABG Base Excess Miah Test O2 Delivery Device FiO2 EPAP IPAP Sodium Potassium Chloride Carbon Dioxide Anion Gap BUN Creatinine Estimated GFR (MDRD) Glucose Lactic Acid 2.0 Calcium Total Bilirubin AST ALT Alkaline Phosphatase Troponin I High Sens B-Natriuretic Peptide Total Protein Albumin Globulin Albumin/Globulin Ratio Lipase Urine Color Urine Clarity Urine pH Ur Specific [place] Urine Protein Urine Glucose (UA) Urine Ketones Urine Occult Blood Urine Nitrite Urine Bilirubin Urine Urobilinogen Ur Leukocyte Esterase Urine RBC Urine WBC Urine WBC Clumps Ur Epithelial Cells Ur Squamous Epith Cells Urine Bacteria Ur Microscopic Review Urine Culture Comments - Rads (name of study) chest Radiology: Prelim report reviewed (Impression: 1. Findings suggesting mild to moderate CHF/fluid overload. 2. Suspect small right pleural effusion superimposed on chronic pleural thickening.), EMP read indepedently, See rad report Procedures - IVC sono (time) 0850 Bedside IVC sono: IVC measures (cm) (2.55), IVC collapsed c insp (cm) (2.55), High CVP, Fluid overload PD MEDICAL DECISION MAKING - ED course Complexity details: reviewed old records, reviewed results, re-evaluated patient, considered differential, d/w patient ED course: 79-year-old female with a history of CHF COPD and atrial fibrillation with Eliquis. She arrives to the emergency department in atrial fibrillation with rapid ventricular response and in failure. She is ministered Lasix 60 mg intravenously on arrival as well as diltiazem 20 mg intravenously. She is placed onto BIPAP. With rate control and the BiPAP the patient improves dramatically and is interactive. She is able to list off her medications and appears compos mentis as apposed to when she arrived slumped on the gurney. A pantoja is placed with return of cloudy infected urine. She is administered IV rocephin. Dr. Lira is consulted in the case and graciously agrees to care for the patient in the hospital. Departure - Departure Disposition: 66 [facility] DC/Xfer Clinical Impression: Atrial fibrillation with rapid ventricular response Acute exacerbation of CHF (congestive heart failure) Qualifiers: Heart failure type: unspecified Qualified Code(s): I50.9 - Heart failure, unspecified Urinary tract infection Qualifiers: Urinary tract infection type: acute cystitis Hematuria presence: without hematuria Qualified Code(s): N30.00 - Acute cystitis without hematuria
[2019-10-04 09:11] LABS: BASOPHILS # (AUTO) 0.1 10^3/uL (0.0-0.1); BASOPHILS % (AUTO) 0.7 %; EOSINOPHILS # (AUTO) 0.2 10^3/uL (0.0-0.7); EOSINOPHILS % (AUTO) 0.8 %; HGB - HEMOGLOBIN 15.1 g/dL (12.0-16.0); LYMPHOCYTES # (AUTO) 2.5 10^3/uL (1.5-3.5); LYMPHOCYTES % (AUTO) 12.5 %; MEAN CORPUSCULAR HEMOGLOBIN 26.4 pg (27.0-31.0); MEAN CORPUSCULAR HGB CONC 29.4 g/dL (32.0-36.0); MEAN CORPUSCULAR VOLUME 89.7 fL (81.0-99.0); MEAN PLATELET VOLUME 11.8 fL (7.9-10.8); MONOCYTES # (AUTO) 1.1 10^3/uL (0.0-1.0); MONOCYTES % (AUTO) 5.6 %; NEUTROPHILS # (AUTO) 15.6 10^3/uL (1.5-6.6); NEUTROPHILS % (AUTO) 79.2 %; PLT - PLATELET COUNT 313 10^3/uL (130-450); RED BLOOD COUNT 5.72 10^6/uL (4.20-5.40); RED CELL DISTRIBUTION WIDTH 17.2 % (12.0-15.0); WHITE BLOOD COUNT 19.7 x10^3/uL (4.8-10.8)
[2019-10-04 09:20] LABS: ALBUMIN 3.3 g/dL (3.2-5.5); ALBUMIN/GLOBULIN RATIO 0.7 (1.0-2.2); BILIRUBIN,TOTAL 0.7 mg/dL (0.2-1.0); CALCIUM 8.5 mg/dL (8.5-10.3); CREATININE 0.8 mg/dL (0.4-1.0)
[2019-10-04 09:53] LABS: ABG HCO3 29.8 mmol/L (22.0-26.0); ABG PH 7.29 (7.35-7.45); ABG PO2 84 mmHg (80-100)
[2019-10-04 09:54] LABS: ABG BASE EXCESS 1.5 mmol/L (-2.0-3.0); ABG OXYGEN SATURATION 97 % (94-98); ABG TCO2 31.7 MMOL/L (21.0-29.0); ALLEN TEST POSITIVE
--- NOTE | 2019-10-04 09:54 | XRAY Report ---
Reason: chest pain Procedure Date: 10/04/2019 Accession Number: [id number] / [id number] Procedure: XR - Chest 1 View X-Ray CPT Code: 98277 Final Report FULL RESULT: EXAM: CHEST RADIOGRAPHY EXAM DATE: 10/04/2019 09:01 AM. CLINICAL HISTORY: Chest pain. COMPARISON: Chest radiograph from 05/06/2019, CT chest from 05/06/2019. TECHNIQUE: 1 view. FINDINGS: Lungs/Pleura: There are diffuse interstitial and alveolar opacities in both lungs. There is increased blunting of the records from his office, suggestive of pleural effusion superimposed on pleural thickening seen on prior CT. No left pleural effusion. The lung apices are incompletely included in the [id number]; however, no substantial pneumothorax. Mediastinum: There is mild enlargement of the cardiomediastinal contour. Pulmonary vasculature is engorged and indistinct. Other: Surgical clip overlies the mediastinum. IMPRESSION: 1. Findings suggesting mild-moderate CHF/fluid overload. 2. Suspect small right pleural effusion superimposed on chronic pleural thickening. RADIA
[2019-10-04 09:58] LABS: ABG PCO2 63 mmHg (34-45)
[2019-10-04 10:01] LABS: BILIRUBIN,URINE NEGATIVE (NEGATIVE); GLUCOSE, URINE (UA) NEGATIVE (NEGATIVE); KETONES,URINE (UA) NEGATIVE (NEGATIVE); LEUKOCYTE ESTERASE, URINE SMALL (NEGATIVE); NITRITE,URINE NEGATIVE (NEGATIVE); OCCULT BLOOD,URINE SMALL (NEGATIVE); PH,URINE 5.5 PH (5.0-7.5); PROTEIN,URINE >=300 mg/dL (NEGATIVE); UROBILINOGEN,URINE 0.2 (NORMAL) E.U./dL (NORMAL)
[2019-10-04] MEDS ORDERED: cefTRIAXone 1 GM in SODIUM CHLORIDE 0.9% MINIBAG 100 ML IV STA (10:02)
[2019-10-04 10:07] LABS: CLARITY,URINE CLOUDY (CLEAR)
[2019-10-04 10:18] LABS: WBC CLUMPS,URINE PRESENT
[2019-10-04 10:19] LABS: BACTERIA,URINE Moderate /HPF (None Seen); EPITHELIAL CELLS,UR RARE Transitional /HPF (<= Few); RBC,URINE 0-5 /HPF (0-5); SQUAMOUS EPITHELIAL CELL,UR FEW Squamous (<= Few)
[2019-10-04] MEDS ORDERED: ONDANSETRON 4 MG/2 ML VIAL IVP PRN (10:25)
[2019-10-04] MEDS ORDERED: ACETAMINOPHEN 325 MG TABLET PO PRN (10:25)
[2019-10-04] MEDS ORDERED: IPRATROPIUM 0.2 MG/ML NEB INH PRN (10:34)
[2019-10-04] MEDS ORDERED: ALBUTEROL NEB 2.5 MG/3 ML INH PRN (10:34)
--- NOTE | 2019-10-04 10:36 | HISTORY & PHYSICAL EXAMINATION ---
Chief Complaint - Chief Complaint Chief Complaint: Shortness of breath History of Present Illness - Admitted From Admitted From:: Home - History Obtained From Records Reviewed: Yes History obtained from: Patient, ER physician, EMR Exam Limitations: Patient is on BiPAP - History of Present Illness HPI Comment/Other: This is a 79-year-old female with a past medical history significant for COPD on 3 L of oxygen at baseline, heart failure with preserved ejection fraction, atrial fibrillation, type 2 diabetes mellitus who presents today complaining of worsening shortness of breath over the past 3 to 4 days. She states her dyspnea became so severe this morning that she called EMS. She states that she has had a nonproductive cough and worsening lower extremity edema over the past few days. She has been taking her home Lasix 80 mg daily. She reports no fevers or chills. Denies leaving her house or any recent sick contacts. She has reported occasional wheezing and she has been compliant with her oxygen. Reports no dysuria or urgency does have frequency and is incontinent at baseline. She reports her history of obstructive sleep apnea but does not use CPAP. She denies any chest pain. Upon EMS arrival, she is found to be satting 77% on 3 L of oxygen. In the emergency department, she was found to be in atrial relation with rapid ventricular response and in heart failure. She was given Lasix 60 mg IV and 20 mg of diltiazem IV. She was quite somnolent and was placed on BiPAP as her ABG showed an elevated carbon dioxide. She improved quickly and was able to be more interactive and converse. Given her respiratory failure, medicine was consulted for admission. I did discuss goals of care with the patient and she states that she is a DNR and would not want mechanical ventilation if she were to decline from a respiratory standpoint. History - Past Medical History Cardiovascular: reports: Hypertension, Angina Respiratory: reports: COPD, Sleep apnea, Other Neuro: reports: CVA Endocrine/Autoimmune: reports: Type 2 diabetes GI: reports: None : reports: Incontinence HEENT: reports: Other Psych: reports: None Musculoskeletal: reports: None Derm: reports: None MRSA Hx?: No - Past Surgical History General: reports: Cholecystectomy /PLASTIC PRESS MOLDER: reports: Hysterectomy Cardiovascular: reports: Coronary stent, Lobectomy HEENT: reports: Cataracts, Tonsil/Adenoidectomy - Family & Social History Family History: Mother: , Cancer, Father: Family History Comment/Other: She reports her twin sister from a aortic dissection. Her father in his 40s which she believes was se condary to a possible aneurysm. Her mother lived into her 90s. Living arrangement: At home Living Situation: Alone Social History Notes: She previously lived in [place] but moved here over 3 years ago after her to be closer to her son. 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 She no longer smokes but previously smoked 2 to 3 packs a day for at least 30 years. She does not drink alcohol. She confirms that she is a DNR with no mechnical ventilation. - POLST Patient has POLST: No Meds/Allgy - Home Medications Home Medications: Ambulatory Orders Medication Instructions Recorded Confirmed Gabapentin 1,200 mg PO QPM 05/03/15 10/04/19 traZODone [Desyrel] 50 mg PO QPM 05/03/15 10/04/19 Albuterol 2.5 mg INH Q4HR PRN #50 neb 04/15/19 10/04/19 Apixaban [Eliquis] 5 mg PO BID #20 tablet 04/15/19 10/04/19 Metoprolol Tartrate [Lopressor] 75 mg PO BID #60 tablet 04/15/19 10/04/19 Atorvastatin [Lipitor] 5 mg PO QPM 05/07/19 10/04/19 Ipratropium [Atrovent] 0.5 mg INH Q6H PRN 05/07/19 10/04/19 metFORMIN [Glucophage] 500 mg PO QDBREAKFAST 05/07/19 10/04/19 Furosemide [Lasix] 80 mg PO DAILY #20 tablet 05/08/19 10/04/19 Potassium Chloride [Klor-Con 10] 10 meq PO DAILY 10/04/19 10/04/19 metFORMIN [Glucophage] 1,000 mg PO QDDINNER 10/04/19 10/04/19 - Allergies Allergies/Adverse Reactions: Allergies Allergy/AdvReac Type Severity Reaction Status Date / Time No Known Drug Allergies Allergy Verified 07/07/19 00:23 Review of Systems - Constitutional Constitutional: reports: Weakness. denies: Fever, Chills - Cardiovascular Cariovascular: reports: Edema, Exertional dyspnea, Decr. exercise tolerance. denies: Chest pain - Respiratory Respiratory: reports: Cough, SOB at rest, SOB with exertion - Gastrointestinal Gastrointestinal: denies: Abdominal pain, Nausea, Vomiting - Genitourinary Genitourinary: reports: Frequency, Incontinence. denies: Dysuria, Urgency, H ematuria - Neurological Neurological: denies: Focal weakness - All Other Systems All Other Systems: reports: Other (Review of systems is limited given the patient is on BiPAP and tachypneic.) Prior Level of Functionality: He lives at home alone and ambulates with a walker at baseline. She had been considering moving to an assisted living facility and was considering summer. Exam - Vital Signs Reviewed Vital Signs: Yes Vital Signs: Vital Signs x48h Temp Pulse Resp BP Pulse Ox 10/04/19 10:05 85 21 86/77 L 98 10/04/19 09:35 71 18 93/61 96 10/04/19 09:23 78 20 128/89 H 96 10/04/19 09:08 66 22 101/63 94 10/04/19 08:56 36.4 C L 142 H 38 H 155/122 H 94 10/04/19 08:46 68 - Physical Exam General Appearance: positive: Alert, Mild distress Eyes Bilateral: positive: Normal inspection ENT: positive: ENT inspection nml, Other (BiPAP mask in place.) Neck: positive: Nml inspection Respiratory: positive: Other (She does not appear in respiratory distress. She is tachypneic with diminished breath sounds. Exam is limited given body habitus.) Cardiovascular: positive: Irregularly irregular. negative: Tachycardia, Bradycardia, Systolic murmur Abdomen: positive: Non-tender, No distention. negative: Tenderness Skin: positive: Warm, Dry Extremities: positive: Pedal edema (She has +2 to +3 pitting edema in the bilateral lower extremities) Neurologic/Psychiatric: positive: Oriented x3, Other (No focal deficits on exam.). negative: Disoriented to person, Disoriented to place, Disoriented to time Conclusion/Plan - Problem List (1) Acute on chronic respiratory failure with hypoxia and hypercapnia Conclusion/Plan: This is secondary to exacerbation of her diastolic heart failure. ABG in the emergency department showed a pH 7.29 with a PCO2 of 63 and a PO2 of 84 on FiO2 of 35%. She is on 3 L of oxygen at baseline given her COPD. Her x-ray is consistent with pulmonary edema. She is given Lasix IV with improvement in her hypoxia. She was also placed on BiPAP in the emergency department. At this time we will continue her on Lasix 40 mg IV twice daily. Continue with BiPAP as needed. Goal oxygenation is greater than 88%. Do not suspect the need to repeat an ABG as she is now awake alert and able to communicate. COVID-19 reference test has been ordered and we will follow this up. (2) Acute diastolic (congestive) heart failure Conclusion/Plan: This is the cause of her respiratory failure as mentioned above. BNP is elevated in the 500s. Her last echocardiogram showed a preserved ejection fraction. This was likely exacerbated by her age fibrillation with rapid ventricular response. We will continue diuresis with furosemide IV twice daily. Continue her home metoprolol. We will repeat an echocardiogram if she remains hospitalized on Sunday. Monitor on telemetry. Initial troponin is negative. Will check an EKG and trend troponin. (3) Atrial fibrillation with rapid ventricular response Conclusion/Plan: She has history of atrial relation for which she is on metoprolol and Eliquis at home. She is now rate controlled after receiving diltiazem IV in the emergency department. We will continue her on her home metoprolol and Eliquis. Continue to monitor on telemetry. (4) COPD (chronic obstructive pulmonary disease) Conclusion/Plan: Stable and does not appear to be in exacerbation. She is on 3 L of oxygen at baseline. Continue her home inhalers. (5) Diabetes mellitus type 2 in obese Conclusion/Plan: She is on metformin at home. We will place her on carb controlled diet and sliding scale. Check A1c. (6) Urinary tract infection Conclusion/Plan: She reports some urgency and frequency but no dysuria. This could be colonizat ion but we will treat her empirically with ceftriaxone IV and follow-up cultures given she has had a chronically elevated white count Qualifiers: Urinary tract infection type: acute cystitis Hematuria presence: without hematuria Qualified Code(s): N30.00 - Acute cystitis without hematuria (7) Obstructive sleep apnea Conclusion/Plan: She is not on CPAP at home. She would benefit from an outpatient sleep study and resuming CPAP. - Lab Results Lab results reviewed: Yes Fish Bones: 10/04/19 08:50 10/04/19 08:50 - Diagnostic Imaging Results Diagnostic Imaging Results: positive: Final report reviewed Core Measures - Anticipated LOS I expect patient to be DC'd or transferred within 96 hours.: Yes - Issues Hospital Issues and Management Plan: 79-year-old female admitted for acute on chronic hypoxic respiratory failure hypercapnic respiratory failure secondary to heart failure. Will admit to ICU given she is on BiPAP. We will diurese with IV Lasix. - DVT/VTE - Prophylaxis VTE/DVT Device ordered at admit?: Yes VTE/DVT Prophylaxis med ordered at admit?: No Not Ordered - Medical Reason: Not indicated
[2019-10-04] MEDS: MIN OIL/DIMETHICON/COCONUT OIL 92 GM TUBE TOP PRN (13:00)
[2019-10-04] MEDS: INSULIN ASPART 300 UNIT/3 ML PEN SUBQ SCH ×3 (13:18→22:42)
[2019-10-04] MEDS: ZINC OXIDE 20% OINT 30 GM TUBE TOP PRN (14:42)
[2019-10-04] MEDS: ALBUTEROL 1 PUFF INH PRN (14:47)
--- NOTE | 2019-10-04 14:59 | PHARMACY PROGRESS NOTE ---
- Best Possible Medication History Admit Date and Time: 10/04/19 1025 Processed by: Pharmacy Medication History completed: Yes Secondary Source(s): Physician records, Pharmacy records, Insurance records As the person ultimately responsible for medication therapy, providers are able to order a medication from an existing home medication list in [facility] via the "Reconcile Routine" prior to Confirmation of that medication by respiratory support technician. Such practice is discouraged except when the physician, in their clinical judgment, deems that a medical need exists for a medication without regard to previous use.
[2019-10-04] MEDS: NYSTATIN POWDER 15 GM TOP SCH ×2 (17:27→22:43)
[2019-10-04] MEDS: SODIUM CHLORIDE FLUSH 0.9% 10 ML SYRINGE IVP SCH (17:29)
[2019-10-04] MEDS: METOPROLOL TARTRATE 25 MG TABLET PO SCH ×2 (17:51→22:39)
[2019-10-04] MEDS: GABAPENTIN 300 MG CAPSULE PO SCH (22:38)
[2019-10-04] MEDS: APIXABAN 5 MG TABLET PO SCH (22:39)
[2019-10-04] MEDS: ATORVASTATIN 10 MG TABLET PO SCH (22:41)
[2019-10-04] MEDS: traZODone 50 MG TABLET PO SCH (22:52)
[2019-10-04] MEDS ORDERED: FUROSEMIDE 40 MG/4 ML VIAL IVP SCH (23:45)
[2019-10-05] MEDS: LORazepam 2 MG/ML VIAL IVP PRN ×3 (00:02→21:00)
[2019-10-05 05:49] LABS: CALCIUM 8.3 mg/dL (8.5-10.3); CREATININE 0.8 mg/dL (0.4-1.0); MAGNESIUM 2.3 mg/dL (1.7-2.8); PHOSPHORUS 5.8 mg/dL (2.5-4.6)
[2019-10-05 05:51] LABS: BASOPHILS % (AUTO) 0.2 %; HGB - HEMOGLOBIN 13.2 g/dL (12.0-16.0); LYMPHOCYTES # (AUTO) 0.7 10^3/uL (1.5-3.5); LYMPHOCYTES % (AUTO) 6.1 %; MEAN CORPUSCULAR VOLUME 96.9 fL (81.0-99.0); MEAN PLATELET VOLUME 10.3 fL (7.9-10.8); MONOCYTES # (AUTO) 0.6 10^3/uL (0.0-1.0); MONOCYTES % (AUTO) 5.3 %; NEUTROPHILS # (AUTO) 9.4 10^3/uL (1.5-6.6); NEUTROPHILS % (AUTO) 87.5 %; PLT - PLATELET COUNT 188 10^3/uL (130-450); RED BLOOD COUNT 4.13 10^6/uL (4.20-5.40); RED CELL DISTRIBUTION WIDTH 15.1 % (12.0-15.0); WHITE BLOOD COUNT 10.7 x10^3/uL (4.8-10.8)
[2019-10-05 06:08] LABS: HB2 TOTAL 13.5 g/dL; HEMOGLOBIN A1C 0.51 g/dL; HEMOGLOBIN A1C % 5.6 % (4.6-6.2)
[2019-10-05] MEDS: SODIUM CHLORIDE FLUSH 0.9% 10 ML SYRINGE IVP SCH ×3 (07:14→13:52)
[2019-10-05] MEDS: FUROSEMIDE 40 MG/4 ML VIAL IVP SCH ×2 (07:54→13:51)
[2019-10-05] MEDS: INSULIN ASPART 300 UNIT/3 ML PEN SUBQ SCH ×2 (08:00→12:35)
[2019-10-05] MEDS: cefTRIAXone 1 GM in SODIUM CHLORIDE 0.9% MINIBAG 100 ML IV SCH (09:00)
--- NOTE | 2019-10-05 09:29 | PROVIDER PROGRESS NOTE ---
Subjective - Prog Note Date Prog Note Date: 10/05/19 - Subjective Subjective: She became hypoxic yesterday evening and required an extra dose of IV Lasix. She required to be placed on BiPAP again. She did have some anxiety and was given Ativan with improvement. This morning she continues to feel short of breath but slightly improved compared to yesterday. Denies chest pain. Current Medications - Current Medications Current Medications: Active Medications Acetaminophen (Tylenol) 650 mg PO Q4HR PRN PRN Reason: Pain 1 to 4 Albuterol (Mdi: Albuterol) 2 puffs INH Q6HR PRN PRN Reason: Dyspnea Last Admin: 10/05/19 13:39 Dose: 2 puffs Apixaban (Eliquis) 5 mg PO BID REPLACED BY [facility] Last Admin: 10/05/19 12:34 Dose: 5 mg Atorvastatin Calcium (Lipitor) 5 mg PO QPM REPLACED BY [facility] Last Admin: 10/04/19 22:41 Dose: 5 mg Furosemide (Lasix Inj 40 Mg Vial) 40 mg IVP BIDDIURETIC REPLACED BY [facility] Last Admin: 10/05/19 13:51 Dose: 40 mg Gabapentin (Neurontin) 900 mg PO QPM REPLACED BY [facility] Last Admin: 10/04/19 22:38 Dose: 900 mg Ceftriaxone Sodium 1 gm/ (Sodium Chloride) 100 mls @ 200 mls/hr IV DAILY REPLACED BY [facility] Last Infusion: 10/05/19 10:21 Dose: Infused Insulin Aspart (Novolog) 1 - 9 unit SUBQ 0800,1200,1700,2100 REPLACED BY [facility]; Protocol Last Admin: 10/05/19 12:35 Dose: Not Given Lorazepam (Ativan Inj (Vial)) 1 mg IVP Q2H PRN PRN Reason: Anxiety Last Admin: 10/05/19 13:57 Dose: 1 mg Metoprolol Tartrate (Lopressor) 75 mg PO BID REPLACED BY [facility] Last Admin: 10/05/19 12:34 Dose: 75 mg Mineral Oil (Cavilon) 1 applic TOP PRN PRN PRN Reason: Skin Care Last Admin: 10/04/19 13:00 Dose: 1 applic Multi-Ingredient Ointment (Zinc Oxide) 1 applic TOP PRN PRN PRN Reason: Skin Care Last Admin: 10/04/19 14:42 Dose: 1 applic Nystatin (Nystop) 1 applic TOP BID REPLACED BY [facility] Last Admin: 10/05/19 14:07 Dose: 2 applic Ondansetron HCl (Zofran Inj) 4 mg IVP Q6HR PRN PRN Reason: Nausea / Vomiting Sodium Chloride (Normal Saline Flush 0.9%) 10 ml IVP 0100,0900,1700 REPLACED BY [facility] Last Admin: 10/05/19 13:52 Dose: 10 ml Sodium Chloride (Normal Saline Flush 0.9%) 10 ml IVP PRN PRN PRN Reason: NEEDED PER PROVIDER ORDERS Trazodone HCl (Desyrel) 50 mg PO QPM REPLACED BY [facility] Last Admin: 10/04/19 22:52 Dose: 50 mg Gabapentin 1,200 mg PO QPM 05/03/15 traZODone [Desyrel] 50 mg PO QPM 05/03/15 Atorvastatin [Lipitor] 5 mg PO QPM 05/07/19 Ipratropium [Atrovent] 0.5 mg INH Q6H PRN 05/07/19 metFORMIN [Glucophage] 500 mg PO QDBREAKFAST 05/07/19 Potassium Chloride [Klor-Con 10] 10 meq PO DAILY 10/04/19 metFORMIN [Glucophage] 1,000 mg PO QDDINNER 10/04/19 Objective - Vital Signs/Intake & Output Reviewed Vital Signs: Yes Vital Signs: Vital Signs Pulse Pulse Resp BP Pulse Ox 10/05/19 09:00 90 24 117/70 99 10/05/19 08:00 25 L 27 H 121/80 96 10/05/19 07:10 114 H 10/05/19 07:00 122 H 42 H 91/67 85 L 10/05/19 06:00 80 18 91/67 91 L Intake & Output: Intake & Output 10/02/19 10/03/19 10/04/19 10/05/19 23:59 23:59 23:59 23:59 Intake Total 555 50 Output Total 2301 8041 Balance -5314 -0509 - Objective General Appearance: positive: Alert, Moderate distress Eyes Bilateral: positive: Normal inspection ENT: positive: ENT inspection nml, Other (BiPAP mask in place) Neck: positive: Nml inspection Respiratory: positive: Other (Diminished breath sounds bilaterally. She is tachypnic. Exam is limited given body habitus.). negative: No respiratory distress (Moderate respiratory distress.) Cardiovascular: positive: Irregularly irregular, Tachycardia Abdomen: positive: Non-tender. negative: Tenderness Skin: positive: Warm, Dry, Other (Mild erythema over the anterior aspect of her left leg superior to her foot. Nontender and slightly warm.) Extremities: positive: Pedal edema (+1 pitting edema in bilateral lower extremities, improved compared to yesterday.) Neurologic/Psychiatric: positive: Oriented x3, Motor nml. negative: Disoriented to person, Disoriented to place, Disoriented to time - Lab Results Fish Bones: 10/05/19 05:24 10/05/19 05:24 Other Labs: Lab Results x24hrs 10/05/19 10/05/19 10/05/19 Range/Units 05:40 05:24 05:24 WBC (4.8-10.8) x10^3/uL RBC (4.20-5.40) 10^6/uL Hgb (12.0-16.0) g/dL Hct (37.0-47.0) % MCV (81.0-99.0) fL MCH (27.0-31.0) pg MCHC (32.0-36.0) g/dL RDW (12.0-15.0) % Plt Count (130-450) 10^3/uL MPV (7.9-10.8) fL Neut # (Auto) (1.5-6.6) 10^3/uL Lymph # (Auto) (1.5-3.5) 10^3/uL Wake # (Auto) (0.0-1.0) 10^3/uL Eos # (Auto) (0.0-0.7) 10^3/uL Baso # (Auto) (0.0-0.1) 10^3/uL Absolute Nucleated RBC x10^3/uL Nucleated RBC % /100WBC Bld Gas Analysis Time Sample Site ABG pH (7.35-7.45) ABG pCO2 (34-45) mmHg ABG pO2 (80-100) mmHg ABG HCO3 (22.0-26.0) mmol/L ABG Total CO2 (21.0-29.0) MMOL/L ABG O2 Saturation (94-98) % ABG Base Excess (-2.0-3.0) mmol/L Miah Test O2 Delivery Device FiO2 EPAP cmH2O IPAP cmH2O Sodium (135-145) mmol/L Potassium (3.5-5.0) mmol/L Chloride (101-111) mmol/L Carbon Dioxide (21-32) mmol/L Anion Gap (6-13) BUN (6-20) mg/dL Creatinine (0.4-1.0) mg/dL Estimated GFR (MDRD) (>89) Glucose (70-100) mg/dL Glycated Hemoglobin 5.6 (4.6-6.2) % Estim Average Glucose 114 H (70-100) Lactic Acid (0.5-2.2) mmol/L Calcium (8.5-10.3) mg/dL Phosphorus (2.5-4.6) mg/dL Magnesium (1.7-2.8) mg/dL Troponin I High Sens (2.3-14.8) ng/L B-Natriuretic Peptide 357 H (5-100) pg/mL Albumin 3.0 L (3.2-5.5) g/dL Urine Color Urine Clarity (CLEAR) Urine pH (5.0-7.5) PH Ur Specific [place] (1.002-1.030) Urine Protein (NEGATIVE) mg/dL Urine Glucose (UA) (NEGATIVE) mg/dL Urine Ketones (NEGATIVE) mg/dL Urine Occult Blood (NEGATIVE) Urine Nitrite (NEGATIVE) Urine Bilirubin (NEGATIVE) Urine Urobilinogen (NORMAL) E.U./dL Ur Leukocyte Esterase (NEGATIVE) Urine RBC (0-5) /HPF Urine WBC (0-5) /HPF Urine WBC Clumps Ur Epithelial Cells (<= Few) /HPF Ur Squamous Epith Cells (<= Few) Urine Bacteria (None Seen) /HPF Ur Microscopic Review Urine Culture Comments Nasal Screen MRSA (PCR) (NEGATIVE) 10/05/19 10/05/19 10/04/19 Range/Units 05:24 05:24 12:30 WBC 10.7 (4.8-10.8) x10^3/uL RBC 4.13 L (4.20-5.40) 10^6/uL Hgb 13.2 (12.0-16.0) g/dL Hct 40.0 (37.0-47.0) % MCV 96.9 (81.0-99.0) fL MCH 32.0 H (27.0-31.0) pg MCHC 33.0 (32.0-36.0) g/dL RDW 15.1 H (12.0-15.0) % Plt Count 188 (130-450) 10^3/uL MPV 10.3 (7.9-10.8) fL Neut # (Auto) 9.4 H (1.5-6.6) 10^3/uL Lymph # (Auto) 0.7 L (1.5-3.5) 10^3/uL Wake # (Auto) 0.6 (0.0-1.0) 10^3/uL Eos # (Auto) 0.0 (0.0-0.7) 10^3/uL Baso # (Auto) 0.0 (0.0-0.1) 10^3/uL Absolute Nucleated RBC 0.00 x10^3/uL Nucleated RBC % 0.0 /100WBC Bld Gas Analysis Time Sample Site ABG pH (7.35-7.45) ABG pCO2 (34-45) mmHg ABG pO2 (80-100) mmHg ABG HCO3 (22.0-26.0) mmol/L ABG Total CO2 (21.0-29.0) MMOL/L ABG O2 Saturation (94-98) % ABG Base Excess (-2.0-3.0) mmol/L Miah Test O2 Delivery Device FiO2 EPAP cmH2O IPAP cmH2O Sodium 142 (135-145) mmol/L Potassium 4.1 (3.5-5.0) mmol/L Chloride 98 L (101-111) mmol/L Carbon Dioxide 34 H (21-32) mmol/L Anion Gap 10.0 (6-13) BUN 24 H (6-20) mg/dL Creatinine 0.8 (0.4-1.0) mg/dL Estimated GFR (MDRD) 70 L (>89) Glucose 138 H (70-100) mg/dL Glycated Hemoglobin (4.6-6.2) % Estim Average Glucose (70-100) Lactic Acid (0.5-2.2) mmol/L Calcium 8.3 L (8.5-10.3) mg/dL Phosphorus 5.8 H (2.5-4.6) mg/dL Magnesium 2.3 (1.7-2.8) mg/dL Troponin I High Sens 12.4 (2.3-14.8) ng/L B-Natriuretic Peptide (5-100) pg/mL Albumin (3.2-5.5) g/dL Urine Color Urine Clarity (CLEAR) Urine pH (5.0-7.5) PH Ur Specific [place] (1.002-1.030) Urine Protein (NEGATIVE) mg/dL Urine Glucose (UA) (NEGATIVE) mg/dL Urine Ketones (NEGATIVE) mg/dL Urine Occult Blood (NEGATIVE) Urine Nitrite (NEGATIVE) Urine Bilirubin (NEGATIVE) Urine Urobilinogen (NORMAL) E.U./dL Ur Leukocyte Esterase (NEGATIVE) Urine RBC (0-5) /HPF Urine WBC (0-5) /HPF Urine WBC Clumps Ur Epithelial Cells (<= Few) /HPF Ur Squamous Epith Cells (<= Few) Urine Bacteria (None Seen) /HPF Ur Microscopic Review Urine Culture Comments Nasal Screen MRSA (PCR) (NEGATIVE) 10/04/19 10/04/19 10/04/19 Range/Units 11:55 09:54 09:45 WBC (4.8-10.8) x10^3/uL RBC (4.20-5.40) 10^6/uL Hgb (12.0-16.0) g/dL Hct (37.0-47.0) % MCV (81.0-99.0) fL MCH (27.0-31.0) pg MCHC (32.0-36.0) g/dL RDW (12.0-15.0) % Plt Count (130-450) 10^3/uL MPV (7.9-10.8) fL Neut # (Auto) (1.5-6.6) 10^3/uL Lymph # (Auto) (1.5-3.5) 10^3/uL [place] # (Auto) (0.0-1.0) 10^3/uL Eos # (Auto) (0.0-0.7) 10^3/uL Baso # (Auto) (0.0-0.1) 10^3/uL Absolute Nucleated RBC x10^3/uL Nucleated RBC % /100WBC Bld Gas Analysis Time 0952 Sample Site RIGHT RADIAL ABG pH 7.29 L (7.35-7.45) ABG pCO2 63 H* (34-45) mmHg ABG pO2 84 (80-100) mmHg ABG HCO3 29.8 H (22.0-26.0) mmol/L ABG Total CO2 31.7 H (21.0-29.0) MMOL/L ABG O2 Saturation 97 (94-98) % ABG Base Excess 1.5 (-2.0-3.0) mmol/L Miah Test POSITIVE O2 Delivery Device BiPAP FiO2 35.00 EPAP 5 cmH2O IPAP 16 cmH2O Sodium (135-145) mmol/L Potassium (3.5-5.0) mmol/L Chloride (101-111) mmol/L Carbon Dioxide (21-32) mmol/L Anion Gap (6-13) BUN (6-20) mg/dL Creatinine (0.4-1.0) mg/dL Estimated GFR (MDRD) (>89) Glucose (70-100) mg/dL Glycated Hemoglobin (4.6-6.2) % Estim Average Glucose (70-100) Lactic Acid 2.0 (0.5-2.2) mmol/L Calcium (8.5-10.3) mg/dL Phosphorus (2.5-4.6) mg/dL Magnesium (1.7-2.8) mg/dL Troponin I High Sens (2.3-14.8) ng/L B-Natriuretic Peptide (5-100) pg/mL Albumin (3.2-5.5) g/dL Urine Color Urine Clarity (CLEAR) Urine pH (5.0-7.5) PH Ur Specific [place] (1.002-1.030) Urine Protein (NEGATIVE) mg/dL Urine Glucose (UA) (NEGATIVE) mg/dL Urine Ketones (NEGATIVE) mg/dL Urine Occult Blood (NEGATIVE) Urine Nitrite (NEGATIVE) Urine Bilirubin (NEGATIVE) Urine Urobilinogen (NORMAL) E.U./dL Ur Leukocyte Esterase (NEGATIVE) Urine RBC (0-5) /HPF Urine WBC (0-5) /HPF Urine WBC Clumps Ur Epithelial Cells (<= Few) /HPF Ur Squamous Epith Cells (<= Few) Urine Bacteria (None Seen) /HPF Ur Microscopic Review Urine Culture Comments Nasal Screen MRSA (PCR) NEGATIVE (NEGATIVE) 10/04/19 10/04/19 Range/Units 09:15 08:50 WBC (4.8-10.8) x10^3/uL RBC (4.20-5.40) 10^6/uL Hgb (12.0-16.0) g/dL Hct (37.0-47.0) % MCV (81.0-99.0) fL MCH (27.0-31.0) pg MCHC (32.0-36.0) g/dL RDW (12.0-15.0) % Plt Count (130-450) 10^3/uL MPV (7.9-10.8) fL Neut # (Auto) (1.5-6.6) 10^3/uL Lymph # (Auto) (1.5-3.5) 10^3/uL [place] # (Auto) (0.0-1.0) 10^3/uL Eos # (Auto) (0.0-0.7) 10^3/uL Baso # (Auto) (0.0-0.1) 10^3/uL Absolute Nucleated RBC x10^3/uL Nucleated RBC % /100WBC Bld Gas Analysis Time Sample Site ABG pH (7.35-7.45) ABG pCO2 (34-45) mmHg ABG pO2 (80-100) mmHg ABG HCO3 (22.0-26.0) mmol/L ABG Total CO2 (21.0-29.0) MMOL/L ABG O2 Saturation (94-98) % ABG Base Excess (-2.0-3.0) mmol/L Miah Test O2 Delivery Device FiO2 EPAP cmH2O IPAP cmH2O Sodium (135-145) mmol/L Potassium (3.5-5.0) mmol/L Chloride (101-111) mmol/L Carbon Dioxide (21-32) mmol/L Anion Gap (6-13) BUN (6-20) mg/dL Creatinine (0.4-1.0) mg/dL Estimated GFR (MDRD) (>89) Glucose (70-100) mg/dL Glycated Hemoglobin (4.6-6.2) % Estim Average Glucose (70-100) Lactic Acid (0.5-2.2) mmol/L Calcium (8.5-10.3) mg/dL Phosphorus (2.5-4.6) mg/dL Magnesium (1.7-2.8) mg/dL Troponin I High Sens (2.3-14.8) ng/L B-Natriuretic Peptide 537 H (5-100) pg/mL Albumin (3.2-5.5) g/dL Urine Color YELLOW Urine Clarity CLOUDY (CLEAR) Urine pH 5.5 (5.0-7.5) PH Ur Specific [place] >=1.030 H (1.002-1.030) Urine Protein >=300 H (NEGATIVE) mg/dL Urine Glucose (UA) NEGATIVE (NEGATIVE) mg/dL Urine Ketones NEGATIVE (NEGATIVE) mg/dL Urine Occult Blood SMALL H (NEGATIVE) Urine Nitrite NEGATIVE (NEGATIVE) Urine Bilirubin NEGATIVE (NEGATIVE) Urine Urobilinogen 0.2 (NORMAL) (NORMAL) E.U./dL Ur Leukocyte Esterase SMALL H (NEGATIVE) Urine RBC 0-5 (0-5) /HPF Urine WBC >25 H (0-5) /HPF Urine WBC Clumps PRESENT Ur Epithelial Cells RARE Transitional (<= Few) /HPF Ur Squamous Epith Cells FEW Squamous (<= Few) Urine Bacteria Moderate H (None Seen) /HPF Ur Microscopic Review INDICATED Urine Culture Comments INDICATED Nasal Screen MRSA (PCR) (NEGATIVE) Assessment/Plan - Problem List (1) Acute on chronic respiratory failure with hypoxia and hypercapnia Impression: She has slightly improved over the last 24 hours. She has required BiPAP still intermittently. Her FiO2 requirements are only 30% on BiPAP though when she transitions nasal cannula, she requires 5 to 6 L of oxygen to maintain her oxygen saturations and she quickly becomes tachycardic as well. We will continue to diurese her with Lasix 40 mg IV twice daily. Continue with BiPAP with intermittent breaks with nasal cannula. Goal oxygenation greater than 88% given her history of COPD. (2) Acute diastolic (congestive) heart failure Impression: She appears to be slowly improving. Her edema has decreased in her legs and her BNP is also decreased. She is still hypoxic and is requiring BiPAP at times. We will continue with Lasix 40 mg IV twice daily. Daily weights. Strict I's and O's. Continue to trend BNP. Will obtain echocardiogram tomorrow. (3) Atrial fibrillation with rapid ventricular response Impression: This is likely contributing to her heart failure. Her rates have been very labile and she is usually tachycardic when she is off of BiPAP. We will continue her on metoprolol 75 mg twice daily for time being. She remains persistently tachycardic, will increase to 100 mg twice daily. Will use IV Lopressor as needed when she is on BiPAP. Continue Eliquis for anticoagulation. Monitor her on telemetry. (4) Erythema of lower extremity Impression: She does have mild erythema in the right lower extremity above the ankle. This does not appear to be cellulitis. Given her edema, we will obtain duplex of her lower extremities although low suspicion for DVT given she is on Eliquis for A. fib. (5) COPD (chronic obstructive pulmonary disease) Impression: This does not appear to be contributing to her current respiratory failure. She does not appear to being in exacerbation and so we will hold off on steroids given that can make her heart failure difficult to treat. Continue with her home inhalers. (6) Urinary tract infection Impression: Her urinalysis was suggestive of infection. She does report some frequency at home and so we are treating her for urinary tract infection. Culture is growing E. coli. Continue ceftriaxone IV day 2. Qualifiers: Urinary tract infection type: acute cystitis Hematuria presence: without hematuria Qualified Code(s): N30.00 - Acute cystitis without hematuria (7) Diabetes mellitus type 2 in obese Impression: Her A1c is 5.6%. This has improved from 7.9%. Discontinue blood glucose checks this time as her blood sugars have been stable. We can likely discontinue her metformin on discharge. (8) Obstructive sleep apnea Impression: She will need an outpatient sleep study as she would benefit from CPAP.
--- NOTE | 2019-10-05 11:44 | Ultrasound Report ---
Reason: Leg pain. Edema. Procedure Date: 10/05/2019 Accession Number: [id number] / [id number] Procedure: US - Duplex Ext Veins Bilateral CPT Code: Final Report FULL RESULT: EXAM: BILATERAL LOWER EXTREMITY VENOUS ULTRASOUND EXAM DATE: 10/05/2019 09:15 AM. CLINICAL HISTORY: Leg pain. Edema. COMPARISON: DUPLEX EXT VEINS BILATERAL 04/12/2019 6:37 AM. TECHNIQUE: Real-time sonographic vascular imaging was performed by the chief investment officer through the lower extremities utilizing both color-flow and Doppler spectral analysis. Multiple reimbursement representative static images were saved for review. FINDINGS: Right: Common Femoral Vein (CFV): Normal. CFV-GSV Junction: Normal. Profunda Femoral Vein (PFV): Normal. Femoral Vein (FV) Prox: Normal. Femoral Vein (FV) Mid: Normal. Femoral Vein (FV) Dist: Normal. Popliteal Vein: Normal. Posterior Tibial Veins: Somewhat poorly visualized distally due to lower extremity edema and patient body habitus. Grossly patent. Peroneal Veins: Somewhat poorly visualized distally due to lower extremity edema and patient body habitus. Grossly patent. Left: Common Femoral Vein (CFV): Normal. CFV-GSV Junction: Normal. Profunda Femoral Vein (PFV): Normal. Femoral Vein (FV) Prox: Normal. Femoral Vein (FV) Mid: Normal. Femoral Vein (FV) Dist: Normal. Popliteal Vein: Normal. Posterior Tibial Veins: Somewhat poorly visualized distally due to lower extremity edema and patient body habitus. Grossly patent. Peroneal Veins: Somewhat poorly visualized distally due to lower extremity edema and patient body habitus. Grossly patent. Other: None. IMPRESSION: No convincing evidence for deep venous thrombosis bilaterally. RADIA
[2019-10-05] MEDS: METOPROLOL TARTRATE 25 MG TABLET PO SCH ×2 (12:34→20:27)
[2019-10-05] MEDS: APIXABAN 5 MG TABLET PO SCH ×2 (12:34→20:27)
[2019-10-05] MEDS: ALBUTEROL 1 PUFF INH PRN (13:39)
[2019-10-05] MEDS: NYSTATIN POWDER 15 GM TOP SCH ×2 (14:07→20:25)
[2019-10-05] MEDS: ATORVASTATIN 10 MG TABLET PO SCH (20:25)
[2019-10-05] MEDS: traZODone 50 MG TABLET PO SCH (20:25)
[2019-10-05] MEDS: GABAPENTIN 300 MG CAPSULE PO SCH (20:27)
[2019-10-05] MEDS: SODIUM CHLORIDE FLUSH 0.9% 10 ML SYRINGE IVP PRN (21:02)
[2019-10-05] MEDS: ZINC OXIDE 20% OINT 30 GM TUBE TOP PRN (21:16)
[2019-10-06] MEDS: SODIUM CHLORIDE FLUSH 0.9% 10 ML SYRINGE IVP SCH ×3 (02:11→17:11)
[2019-10-06 05:27] LABS: BASOPHILS # (AUTO) 0.1 10^3/uL (0.0-0.1); BASOPHILS % (AUTO) 0.5 %; EOSINOPHILS # (AUTO) 0.1 10^3/uL (0.0-0.7); EOSINOPHILS % (AUTO) 0.7 %; HGB - HEMOGLOBIN 13.2 g/dL (12.0-16.0); LYMPHOCYTES # (AUTO) 1.8 10^3/uL (1.5-3.5); LYMPHOCYTES % (AUTO) 12.3 %; MEAN CORPUSCULAR HEMOGLOBIN 26.3 pg (27.0-31.0); MEAN CORPUSCULAR HGB CONC 29.8 g/dL (32.0-36.0); MEAN CORPUSCULAR VOLUME 88.4 fL (81.0-99.0); MONOCYTES # (AUTO) 1.1 10^3/uL (0.0-1.0); MONOCYTES % (AUTO) 7.7 %; NEUTROPHILS # (AUTO) 11.2 10^3/uL (1.5-6.6); NEUTROPHILS % (AUTO) 78.2 %; PLT - PLATELET COUNT 305 10^3/uL (130-450); RED BLOOD COUNT 5.01 10^6/uL (4.20-5.40); RED CELL DISTRIBUTION WIDTH 16.4 % (12.0-15.0); WHITE BLOOD COUNT 14.3 x10^3/uL (4.8-10.8)
[2019-10-06 05:37] LABS: CALCIUM 8.3 mg/dL (8.5-10.3); CREATININE 0.7 mg/dL (0.4-1.0); PHOSPHORUS 3.7 mg/dL (2.5-4.6)
[2019-10-06] MEDS: FUROSEMIDE 40 MG/4 ML VIAL IVP SCH ×2 (06:12→14:15)
[2019-10-06] MEDS: SODIUM CHLORIDE FLUSH 0.9% 10 ML SYRINGE IVP PRN ×2 (06:13→22:09)
--- NOTE | 2019-10-06 07:38 | PROVIDER PROGRESS NOTE ---
Subjective - Prog Note Date Prog Note Date: 10/06/19 - Subjective Subjective: She reports feeling lousy today. She did not get much sleep last night. She feels her breathing is somewhat labored still but has improved since admission. She continues to have lower extremity swelling. Denies any chest pain. Current Medications - Current Medications Current Medications: Active Medications Acetaminophen (Tylenol) 650 mg PO Q4HR PRN PRN Reason: Pain 1 to 4 Albuterol (Mdi: Albuterol) 2 puffs INH Q6HR PRN PRN Reason: Dyspnea Last Admin: 10/05/19 13:39 Dose: 2 puffs Apixaban (Eliquis) 5 mg PO BID KARINA Last Admin: 10/06/19 08:22 Dose: 5 mg Atorvastatin Calcium (Lipitor) 5 mg PO QPM KARINA Last Admin: 10/05/19 20:25 Dose: 5 mg Furosemide (Lasix Inj 40 Mg Vial) 40 mg IVP BIDDIURETIC KARINA Last Admin: 10/06/19 14:15 Dose: 40 mg Gabapentin (Neurontin) 900 mg PO QPM KARINA Last Admin: 10/05/19 20:27 Dose: 900 mg Azithromycin 500 mg/ Sodium (Chloride) 250 mls @ 250 mls/hr IV DAILY KARINA Stop: 10/08/19 09:59 Last Infusion: 10/06/19 12:00 Dose: Infused Ceftriaxone Sodium 2 gm/ (Sodium Chloride) 100 mls @ 200 mls/hr IV DAILY KARINA Stop: 10/10/19 09:29 Lorazepam (Ativan Inj (Vial)) 1 mg IVP Q2H PRN PRN Reason: Anxiety Last Admin: 10/06/19 11:38 Dose: 1 mg Metoprolol Tartrate (Lopressor) 100 mg PO BID KARINA Last Admin: 10/06/19 08:21 Dose: 100 mg Mineral Oil (Cavilon) 1 applic TOP PRN PRN PRN Reason: Skin Care Last Admin: 10/04/19 13:00 Dose: 1 applic Multi-Ingredient Ointment (Zinc Oxide) 1 applic TOP PRN PRN PRN Reason: Skin Care Last Admin: 10/06/19 11:06 Dose: 1 applic Nystatin (Nystop) 1 applic TOP BID KARINA Last Admin: 10/06/19 11:06 Dose: 1 applic Ondansetron HCl (Zofran Inj) 4 mg IVP Q6HR PRN PRN Reason: Nausea / Vomiting Sodium Chloride (Normal Saline Flush 0.9%) 10 ml IVP 0100,0900,1700 [facility] Last Admin: 10/06/19 08:23 Dose: Not Given Sodium Chloride (Normal Saline Flush 0.9%) 10 ml IVP PRN PRN PRN Reason: NEEDED PER PROVIDER ORDERS Last Admin: 10/06/19 06:13 Dose: 10 ml Trazodone HCl (Desyrel) 50 mg PO QPM [facility] Last Admin: 10/05/19 20:25 Dose: 50 mg Gabapentin 1,200 mg PO QPM 05/03/15 traZODone [Desyrel] 50 mg PO QPM 05/03/15 Atorvastatin [Lipitor] 5 mg PO QPM 05/07/19 Ipratropium [Atrovent] 0.5 mg INH Q6H PRN 05/07/19 metFORMIN [Glucophage] 500 mg PO QDBREAKFAST 05/07/19 Potassium Chloride [Klor-Con 10] 10 meq PO DAILY 10/04/19 metFORMIN [Glucophage] 1,000 mg PO QDDINNER 10/04/19 Objective - Vital Signs/Intake & Output Vital Signs: Vital Signs Temp Pulse Resp BP Pulse Ox 10/06/19 06:00 128 H 22 122/97 H 97 10/06/19 05:33 103 H 22 122/73 98 10/06/19 04:00 36.5 C 103 H 22 104/73 97 Intake & Output: Intake & Output 10/03/19 10/04/19 10/05/19 10/06/19 23:59 23:59 23:59 23:59 Intake Total 555 690 350 Output Total 2300 4665 908 Balance -1745 -3485 -558 - Objective General Appearance: positive: Alert, Mild distress Eyes Bilateral: positive: Normal inspection ENT: positive: ENT inspection nml Neck: positive: Nml inspection Respiratory: positive: No respiratory distress, Other (She is tachypneic. Breath sounds are diminished with some crackles present bilaterally.) Cardiovascular: positive: No murmur, Irregularly irregular, Tachycardia. negative: Systolic murmur Abdomen: positive: Non-tender, No distention Extremities: positive: Pedal edema (She has +2 pitting edema in the bilateral lower extremities.) Neurologic/Psychiatric: positive: Oriented x3, Motor nml. negative: Disoriented to person, Disoriented to place, Disoriented to time - Lab Results Fish Bones: 10/06/19 05:09 10/06/19 05:09 Other Labs: Lab Results x24hrs 10/06/19 10/06/19 10/06/19 Range/Units 05:09 05:09 05:09 WBC 14.3 H (4.8-10.8) x10^3/uL RBC 5.01 (4.20-5.40) 10^6/uL Hgb 13.2 (12.0-16.0) g/dL Hct 44.3 (37.0-47.0) % MCV 88.4 (81.0-99.0) fL MCH 26.3 L (27.0-31.0) pg MCHC 29.8 L (32.0-36.0) g/dL RDW 16.4 H (12.0-15.0) % Plt Count 305 (130-450) 10^3/uL MPV 11.0 H (7.9-10.8) fL Neut # (Auto) 11.2 H (1.5-6.6) 10^3/uL Lymph # (Auto) 1.8 (1.5-3.5) 10^3/uL [place] # (Auto) 1.1 H (0.0-1.0) 10^3/uL Eos # (Auto) 0.1 (0.0-0.7) 10^3/uL Baso # (Auto) 0.1 (0.0-0.1) 10^3/uL Absolute Nucleated RBC 0.00 x10^3/uL Nucleated RBC % 0.0 /100WBC Sodium 142 (135-145) mmol/L Potassium 3.7 (3.5-5.0) mmol/L Chloride 93 L (101-111) mmol/L Carbon Dioxide 38 H (21-32) mmol/L Anion Gap 11.0 (6-13) BUN 24 H (6-20) mg/dL Creatinine 0.7 (0.4-1.0) mg/dL Estimated GFR (MDRD) 81 L (>89) Glucose 132 H (70-100) mg/dL Calcium 8.3 L (8.5-10.3) mg/dL Phosphorus 3.7 (2.5-4.6) mg/dL Magnesium 2.0 (1.7-2.8) mg/dL Albumin 3.0 L (3.2-5.5) g/dL Coronavirus (PCR) 10/04/19 Range/Units 09:15 WBC (4.8-10.8) x10^3/uL RBC (4.20-5.40) 10^6/uL Hgb (12.0-16.0) g/dL Hct (37.0-47.0) % MCV (81.0-99.0) fL MCH (27.0-31.0) pg MCHC (32.0-36.0) g/dL RDW (12.0-15.0) % Plt Count (130-450) 10^3/uL MPV (7.9-10.8) fL Neut # (Auto) (1.5-6.6) 10^3/uL Lymph # (Auto) (1.5-3.5) 10^3/uL [place] # (Auto) (0.0-1.0) 10^3/uL Eos # (Auto) (0.0-0.7) 10^3/uL Baso # (Auto) (0.0-0.1) 10^3/uL Absolute Nucleated RBC x10^3/uL Nucleated RBC % /100WBC Sodium (135-145) mmol/L Potassium (3.5-5.0) mmol/L Chloride (101-111) mmol/L Carbon Dioxide (21-32) mmol/L Anion Gap (6-13) BUN (6-20) mg/dL Creatinine (0.4-1.0) mg/dL Estimated GFR (MDRD) (>89) Glucose (70-100) mg/dL Calcium (8.5-10.3) mg/dL Phosphorus (2.5-4.6) mg/dL Magnesium (1.7-2.8) mg/dL Albumin (3.2-5.5) g/dL Coronavirus (PCR) NEGATIVE Assessment/Plan - Problem List (1) Acute on chronic respiratory failure with hypoxia and hypercapnia Impression: She has not required BiPAP and she is on 3 L of oxygen via nasal cannula which is her baseline oxygen requirements. Suspect this is likely due to her heart failure. She does still endorse some dyspnea and so we will obtain a chest x- ray today. Continue with furosemide 40 mg IV twice daily. We will transfer her to medical surgical floor if she remains off of BiPAP. (2) Acute diastolic (congestive) heart failure Impression: She is improving is now off of BiPAP. She is back on 3 L of oxygen via nasal cannula. She is -3.5 L yesterday. BNP is also decreasing. Will help transition her to oral diuretics tomorrow. Echocardiogram today (3) Atrial fibrillation with rapid ventricular response Impression: Rate is improved but she still tachycardic in the 110s to 120s. Will increase her home metoprolol 200 mg twice daily today. Continue to monitor on telemetry. Echocardiogram was ordered today is pending (4) Community acquired pneumonia Impression: We did repeat a chest x-ray today given she had dyspnea despite improvement in her BNP. There is concern for possible bilateral infiltrates. Given she is still dyspneic, we will start her on empiric ceftriaxone and azithromycin. (5) COPD (chronic obstructive pulmonary disease) Impression: Stable is not appear to be in exacerbation. I do not believe is the cause of her dyspnea. Given she is she is being treated for heart failure, will hold off on steroids as she is not wheezing and this could exacerbate her heart failure. Continue her home inhalers. (6) Urinary tract infection Impression: Urine cultures growing E. coli that is pansensitive. She is on ceftriaxone already. Blood cultures are negative. Qualifiers: Urinary tract infection type: acute cystitis Hematuria presence: without hematuria Qualified Code(s): N30.00 - Acute cystitis without hematuria (7) Diabetes mellitus type 2 in obese Impression: A1c 5.4%. Will discontinue insulin and continue carb controlled diet (8) Obstructive sleep apnea Impression: She will need outpatient sleep study for CPAP.
[2019-10-06] MEDS: METOPROLOL TARTRATE 50 MG TABLET PO SCH ×2 (08:21→21:01)
[2019-10-06] MEDS: APIXABAN 5 MG TABLET PO SCH ×2 (08:22→21:00)
[2019-10-06] MEDS: cefTRIAXone 1 GM in SODIUM CHLORIDE 0.9% MINIBAG 100 ML IV SCH (09:27)
--- NOTE | 2019-10-06 09:47 | XRAY Report ---
Reason: Hypoxia. CHF. Procedure Date: 10/06/2019 Accession Number: [id number] / [id number] Procedure: XR - Chest 1 View X-Ray CPT Code: 69766 Final Report FULL RESULT: EXAM: CHEST RADIOGRAPHY EXAM DATE: 10/06/2019 09:33 AM. CLINICAL HISTORY: Hypoxia. CHF. COMPARISON: CHEST 1 VIEW 10/04/2019 8:42 AM. TECHNIQUE: 1 view. FINDINGS: Lungs/Pleura: Relative kyphotic positioning with some patient rotation to the right. Mild improvement in the interstitial and mild airspace opacities on the left, without brian change in the right. Small right pleural effusion appears similar. No definite new or progressive pulmonary opacities. No evidence of pneumothorax although the right apex is secured by the patient's chin. Mediastinum: Cardiac silhouette is less well-visualized due to the positioning. No brian change in mild cardiac enlargement. Other: None. IMPRESSION: 1. Vascular congestive change and pulmonary infiltrates or edema. Mildly improved, particularly on the left. 2. Small right pleural effusion, without change. 3. Mild cardiac enlargement, without brian change. RADIA
[2019-10-06] MEDS ORDERED: cefTRIAXone 2 GM in SODIUM CHLORIDE 0.9% MINIBAG 100 ML IV SCH (10:00)
[2019-10-06] MEDS: AZITHROMYCIN INJ 500 MG in SODIUM CHLORIDE 0.9% 250 ML IV SCH (10:58)
[2019-10-06] MEDS: ZINC OXIDE 20% OINT 30 GM TUBE TOP PRN (11:06)
[2019-10-06] MEDS: NYSTATIN POWDER 15 GM TOP SCH ×2 (11:06→21:02)
[2019-10-06] MEDS: LORazepam 2 MG/ML VIAL IVP PRN ×2 (11:38→22:08)
[2019-10-06] MEDS ORDERED: cefTRIAXone 1 GM in SODIUM CHLORIDE 0.9% MINIBAG 100 ML IV ONE (12:00)
[2019-10-06] MEDS: ATORVASTATIN 10 MG TABLET PO SCH (21:00)
[2019-10-06] MEDS: traZODone 50 MG TABLET PO SCH (21:01)
[2019-10-06] MEDS: GABAPENTIN 300 MG CAPSULE PO SCH (21:01)
[2019-10-07] MEDS: SODIUM CHLORIDE FLUSH 0.9% 10 ML SYRINGE IVP SCH ×3 (00:13→14:58)
[2019-10-07] MEDS: LORazepam 2 MG/ML VIAL IVP PRN ×3 (00:56→21:16)
[2019-10-07] MEDS: SODIUM CHLORIDE FLUSH 0.9% 10 ML SYRINGE IVP PRN ×3 (00:56→21:16)
[2019-10-07 05:28] LABS: BASOPHILS # (AUTO) 0.1 10^3/uL (0.0-0.1); BASOPHILS % (AUTO) 0.6 %; EOSINOPHILS # (AUTO) 0.3 10^3/uL (0.0-0.7); EOSINOPHILS % (AUTO) 1.7 %; HGB - HEMOGLOBIN 14.8 g/dL (12.0-16.0); LYMPHOCYTES # (AUTO) 1.8 10^3/uL (1.5-3.5); MEAN CORPUSCULAR HEMOGLOBIN 25.3 pg (27.0-31.0); MEAN CORPUSCULAR HGB CONC 29.6 g/dL (32.0-36.0); MEAN CORPUSCULAR VOLUME 85.5 fL (81.0-99.0); MEAN PLATELET VOLUME 10.3 fL (7.9-10.8); MONOCYTES # (AUTO) 1.4 10^3/uL (0.0-1.0); MONOCYTES % (AUTO) 9.4 %; NEUTROPHILS # (AUTO) 11.2 10^3/uL (1.5-6.6); NEUTROPHILS % (AUTO) 75.8 %; PLT - PLATELET COUNT 247 10^3/uL (130-450); RED BLOOD COUNT 5.85 10^6/uL (4.20-5.40); RED CELL DISTRIBUTION WIDTH 16.9 % (12.0-15.0); WHITE BLOOD COUNT 14.8 x10^3/uL (4.8-10.8)
[2019-10-07 05:43] LABS: CALCIUM 8.4 mg/dL (8.5-10.3); CREATININE 0.6 mg/dL (0.4-1.0); MAGNESIUM 2.2 mg/dL (1.7-2.8); PHOSPHORUS 4.3 mg/dL (2.5-4.6)
[2019-10-07] MEDS: FUROSEMIDE 40 MG/4 ML VIAL IVP SCH ×2 (05:56→14:58)
[2019-10-07] MEDS: cefTRIAXone 2 GM in SODIUM CHLORIDE 0.9% MINIBAG 100 ML IV SCH (08:51)
[2019-10-07] MEDS: METOPROLOL TARTRATE 50 MG TABLET PO SCH ×2 (08:53→20:50)
[2019-10-07] MEDS: APIXABAN 5 MG TABLET PO SCH ×2 (08:53→20:49)
[2019-10-07] MEDS: AZITHROMYCIN INJ 500 MG in SODIUM CHLORIDE 0.9% 250 ML IV SCH (09:49)
[2019-10-07] MEDS: NYSTATIN POWDER 15 GM TOP SCH ×2 (09:50→20:51)
[2019-10-07] MEDS: ZINC OXIDE 20% OINT 30 GM TUBE TOP PRN ×2 (09:51→21:08)
[2019-10-07] MEDS: LEVALBUTEROL 1.25 MG/3 ML NEB INH PRN (13:30)
[2019-10-07] MEDS: MULTIVITAMIN W/MINERALS TABLET PO SCH (14:02)
--- NOTE | 2019-10-07 16:18 | PROVIDER PROGRESS NOTE ---
Assessment/Plan - Problem List (1) Acute on chronic respiratory failure with hypoxia and hypercapnia Assessment/Plan: She probably has a combination of volume overload, TORI and obesity hypoventilation, new infiltrates on top of underlying COPD, and deconditioning, as the causes of her shortness of breath. The supplemental O2 is at her baseline of 3L per nasal cannula now, no BIPAP needed for 2 days. Continue nebs/inhalers, diuresis and treatment of the infiltrates. Start PT. She admits she is very deconditioned. I [id number] what PT will do and suggested that she may need a SNF before going to [facility]. She was interested in SNF for rehab strengthening. I will tell SW. Out of ICU today. (2) Acute on chronic diastolic heart failure Assessment/Plan: She is improving is now off of BiPAP. She is back on 3 L of oxygen via nasal cannula. She is -3 lbs. BNP is also decreasing. HR is better controlled today, on maximum dose of Metoprolol. Plan for transition her to oral diuretics soon. (3) Atrial fibrillation with rapid ventricular response Assessment/Plan: HR at rest is better, on Metoprolol Succ 100 bid. She is on Eliquis for stroke prophylaxis. Continue telemetry (4) Community acquired pneumonia Assessment/Plan: The chest x-ray showed bilateral infiltrates yesterday, she was put on Ceftriaxone and with Zithromax starting yesterday. Continue combination treatment which appears to be helping her. (5) UTI (urinary tract infection) Assessment/Plan: The Ceftriaxone is covering this. (6) Diabetes mellitus type 2 in obese Assessment/Plan: Continue meds and management. (7) COPD without exacerbation Assessment/Plan: Continue nebs and O2 supplemental. (8) TORI (obstructive sleep apnea) Assessment/Plan: Per the previous Hospitalist's note, she needs a sleep study to start CPAP. - Current Meds Current Meds: Current Medications Generic Name Dose Route Start Last Admin Trade Name Freq PRN Reason Stop Dose Admin Apixaban 5 mg 10/04/19 21:00 10/07/19 08:53 Eliquis PO 5 mg BID KARINA Administration Atorvastatin Calcium 5 mg 10/04/19 21:00 10/06/19 21:00 Lipitor PO 5 mg QPM KARINA Administration Furosemide 40 mg 10/05/19 08:00 10/07/19 14:58 Lasix Inj 40 Mg Vial IVP 40 mg BIDDIURETIC KARINA Administration Gabapentin 900 mg 10/04/19 21:00 10/06/19 21:01 Neurontin PO 900 mg QPM KARINA Administration Azithromycin 500 mg/ Sodium 250 mls @ 250 mls/hr 10/06/19 10:00 10/07/19 11:00 Chloride IV 10/08/19 09:59 Infused DAILY KARINA Infusion Ceftriaxone Sodium 2 gm/ 100 mls @ 200 mls/hr 10/07/19 09:00 10/07/19 09:25 Sodium Chloride IV 10/10/19 09:29 Infused DAILY KARINA Infusion Levalbuterol HCl 1.25 mg 10/07/19 10:30 10/07/19 13:30 Xopenex INH 1.25 mg Q4H PRN Administration Shortness of Air/Wheezing Lorazepam 1 mg 10/04/19 23:44 10/07/19 15:19 Ativan Inj (Vial) IVP 1 mg Q2H PRN Administration Anxiety Metoprolol Tartrate 100 mg 10/06/19 09:00 10/07/19 08:53 Lopressor PO 100 mg BID KARINA Administration Mineral Oil 1 applic 10/04/19 11:38 10/04/19 13:00 Cavilon TOP 1 applic PRN PRN Administration Skin Care Multi-Ingredient Ointment 1 applic 10/04/19 11:38 10/07/19 09:51 Zinc Oxide TOP 1 applic PRN PRN Administration Skin Care Multivitamins/Minerals 1 tab 10/07/19 10:00 10/07/19 14:02 Theragran M PO 1 tab DAILYWM KARINA Administration Nystatin 1 applic 10/04/19 13:00 10/07/19 09:50 Nystop TOP 1 applic BID KARINA Administration Sodium Chloride 10 ml 10/04/19 17:00 10/07/19 14:58 Normal Saline Flush 0.9% IVP 10 ml 0100,0900,1700 KARINA Administration Sodium Chloride 10 ml 10/04/19 10:25 10/07/19 05:56 Normal Saline Flush 0.9% IVP 10 ml PRN PRN Administration NEEDED PER PROVIDER ORDERS Trazodone HCl 50 mg 10/04/19 21:00 10/06/19 21:01 Desyrel PO 50 mg QPM KARINA Administration - Lab Result Fish Bone Diagrams: 10/08/19 04:20 10/08/19 04:20 - Additional Planning My Orders: My Active Orders 10/07/19 Evaluate and Treat PT [PT] Routine 10/07/19 10:00 Multivitamin W/Minerals [Theragran M] 1 tab PO DAILYWM 10/07/19 10:30 Levalbuterol [Xopenex] 1.25 mg INH Q4H PRN 10/07/19 10:31 Nebulizer/MDI Tx. [RC] QID Resp Teach Nebulizer/MDI [RC] .ONCE 10/08/19 FERRITIN [IAI] Routine FOLATE [IAI] Routine IRON TIBC PANEL [CHEM] Routine VITAMIN B12 [IAI] Routine 10/08/19 05:00 BMP - BASIC METABOLIC PANEL [CHEM] DAILYLAB Subjective - Subjective Patient Reports: Feeling Better ("I feel better today", "My breathing is better".) Objective Vital Signs: Vital Signs - 24 hr 10/06/19 10/06/19 10/06/19 17:00 18:00 19:00 Temperature Heart Rate Heart Rate [ Activity] Heart Rate [ 98 113 H 95 Monitoring electrodes] Respiratory 33 H 28 H 24 Rate Blood Pressure Blood Pressure [Activity] Blood Pressure 100/60 115/85 H 93/63 [Left Radial artery] Blood Pressure [Supine] O2 Saturation 98 95 93 10/06/19 10/06/19 10/06/19 20:00 21:00 21:01 Temperature 36.7 C Heart Rate Heart Rate [ Activity] Heart Rate [ 114 H 116 H Monitoring electrodes] Respiratory 22 17 Rate Blood Pressure 105/93 H Blood Pressure [Activity] Blood Pressure 114/74 105/93 H [Left Radial artery] Blood Pressure [Supine] O2 Saturation 97 96 10/06/19 10/06/19 10/07/19 22:00 23:00 00:00 Temperature Heart Rate Heart Rate [ Activity] Heart Rate [ 86 94 99 Monitoring electrodes] Respiratory 28 H 21 29 H Rate Blood Pressure Blood Pressure [Activity] Blood Pressure 92/48 L 96/52 L 104/83 H [Left Radial artery] Blood Pressure [Supine] O2 Saturation 93 96 94 10/07/19 10/07/19 10/07/19 01:00 02:00 03:00 Temperature Heart Rate Heart Rate [ Activity] Heart Rate [ 87 90 106 H Monitoring electrodes] Respiratory 17 17 25 H Rate Blood Pressure Blood Pressure [Activity] Blood Pressure 90/60 85/63 L 132/70 H [Left Radial artery] Blood Pressure [Supine] O2 Saturation 97 96 90 L 10/07/19 10/07/19 10/07/19 04:00 05:00 06:00 Temperature 37.1 C Heart Rate Heart Rate [ Activity] Heart Rate [ 91 93 106 H Monitoring electrodes] Respiratory 21 20 26 H Rate Blood Pressure Blood Pressure [Activity] Blood Pressure 100/75 122/81 H 148/98 H [Left Radial artery] Blood Pressure [Supine] O2 Saturation 96 98 98 10/07/19 10/07/19 10/07/19 07:00 08:00 08:53 Temperature 36.6 C Heart Rate Heart Rate [ Activity] Heart Rate [ 106 H 109 H Monitoring electrodes] Respiratory 28 H 23 Rate Blood Pressure 127/91 H Blood Pressure [Activity] Blood Pressure 118/87 H 127/91 H [Left Radial artery] Blood Pressure [Supine] O2 Saturation 98 99 10/07/19 10/07/19 10/07/19 09:00 10:00 11:00 Temperature Heart Rate Heart Rate [ Activity] Heart Rate [ 117 H 89 85 Monitoring electrodes] Respiratory 25 H 17 23 Rate Blood Pressure Blood Pressure [Activity] Blood Pressure 94/61 93/64 93/71 [Left Radial artery] Blood Pressure [Supine] O2 Saturation 93 91 L 96 10/07/19 10/07/19 10/07/19 11:05 12:00 13:00 Temperature 36.9 C Heart Rate Heart Rate [ 96 Activity] Heart Rate [ 90 101 H Monitoring electrodes] Respiratory 26 H 21 Rate Blood Pressure Blood Pressure 116/80 [Activity] Blood Pressure 115/78 126/108 H [Left Radial artery] Blood Pressure 94/61 [Supine] O2 Saturation 92 84 L 10/07/19 10/07/19 10/07/19 13:30 14:00 16:00 Temperature Heart Rate 87 Heart Rate [ Activity] Heart Rate [ 93 92 Monitoring electrodes] Respiratory 24 23 18 Rate Blood Pressure Blood Pressure [Activity] Blood Pressure 110/76 136/94 H [Left Radial artery] Blood Pressure [Supine] O2 Saturation 94 93 Oxygen O2 Source Nasal cannula I&O (Last 24 Hrs): Intake and Output Totals x24h 10/05/19 10/06/19 10/07/19 23:59 23:59 23:59 Intake Total 690 1350 1225 Output Total 1270 0625 8645 Balance -4447 -1490 -956 General: Alert, Oriented x3 HEENT: Mucous membr. moist/pink, Other (Wearing O2 n.c.) Neck: Supple, No JVD Neuro: Alert, Non Focal Cardiovascular: Other (Irreg) Respiratory: No respiratory distress Abdomen: Soft Extremities: Other (Trace pedal edema) - Results Results: Laboratory Results WBC 14.8 x10^3/uL (4.8-10.8) H 10/07/19 05:18 RBC 5.85 10^6/uL (4.20-5.40) H 10/07/19 05:18 Hgb 14.8 g/dL (12.0-16.0) 10/07/19 05:18 Hct 50.0 % (37.0-47.0) H 10/07/19 05:18 MCV 85.5 fL (81.0-99.0) 10/07/19 05:18 MCH 25.3 pg (27.0-31.0) L 10/07/19 05:18 MCHC 29.6 g/dL (32.0-36.0) L 10/07/19 05:18 RDW 16.9 % (12.0-15.0) H 10/07/19 05:18 Plt Count 247 10^3/uL (130-450) 10/07/19 05:18 MPV 10.3 fL (7.9-10.8) 10/07/19 05:18 Neut # (Auto) 11.2 10^3/uL (1.5-6.6) H 10/07/19 05:18 Lymph # (Auto) 1.8 10^3/uL (1.5-3.5) 10/07/19 05:18 [place] # (Auto) 1.4 10^3/uL (0.0-1.0) H 10/07/19 05:18 Eos # (Auto) 0.3 10^3/uL (0.0-0.7) 10/07/19 05:18 Baso # (Auto) 0.1 10^3/uL (0.0-0.1) 10/07/19 05:18 Absolute Nucleated RBC 0.00 x10^3/uL 10/07/19 05:18 Nucleated RBC % 0.0 /100WBC 10/07/19 05:18 Bld Gas Analysis Time 95110/04/19 09:45 Sample Site RIGHT RADIAL 10/04/19 09:45 ABG pH 7.29 (7.35-7.45) L 10/04/19 09:45 ABG pCO2 63 mmHg (34-45) H* 10/04/19 09:45 ABG pO2 84 mmHg (80-100) 10/04/19 09:45 ABG HCO3 29.8 mmol/L (22.0-26.0) H 10/04/19 09:45 ABG Total CO2 31.7 MMOL/L (21.0-29.0) H 10/04/19 09:45 ABG O2 Saturation 97 % (94-98) 10/04/19 09:45 ABG Base Excess 1.5 mmol/L (-2.0-3.0) 10/04/19 09:45 Miah Test POSITIVE 10/04/19 09:45 O2 Delivery Device BiPAP 10/04/19 09:45 FiO2 35.00 10/04/19 09:45 EPAP 5 cmH2O 10/04/19 09:45 IPAP 16 cmH2O 10/04/19 09:45 Sodium 142 mmol/L (135-145) 10/07/19 05:18 Potassium 3.7 mmol/L (3.5-5.0) 10/07/19 05:18 Chloride 92 mmol/L (101-111) L 10/07/19 05:18 Carbon Dioxide 37 mmol/L (21-32) H 10/07/19 05:18 Anion Gap 13.0 (6-13) 10/07/19 05:18 BUN 20 mg/dL (6-20) 10/07/19 05:18 Creatinine 0.6 mg/dL (0.4-1.0) 10/07/19 05:18 Estimated GFR (MDRD) 97 (>89) 10/07/19 05:18 Glucose 136 mg/dL (70-100) H 10/07/19 05:18 Glycated Hemoglobin 5.6 % (4.6-6.2) 10/05/19 05:24 Estim Average Glucose 114 (70-100) H 10/05/19 05:24 Lactic Acid 2.0 mmol/L (0.5-2.2) 10/04/19 09:54 Calcium 8.4 mg/dL (8.5-10.3) L 10/07/19 05:18 Phosphorus 4.3 mg/dL (2.5-4.6) 10/07/19 05:18 Magnesium 2.2 mg/dL (1.7-2.8) 10/07/19 05:18 Total Bilirubin 0.7 mg/dL (0.2-1.0) 10/04/19 08:50 AST 42 IU/L (10-42) 10/04/19 08:50 ALT 30 IU/L (10-60) 10/04/19 08:50 Alkaline Phosphatase 128 IU/L (42-121) H 10/04/19 08:50 Troponin I High Sens 12.4 ng/L (2.3-14.8) 10/04/19 12:30 B-Natriuretic Peptide 357 pg/mL (5-100) H 10/05/19 05:24 Total Protein 8.0 g/dL (6.7-8.2) 10/04/19 08:50 Albumin 3.0 g/dL (3.2-5.5) L 10/06/19 05:09 Globulin 4.7 g/dL (2.1-4.2) H 10/04/19 08:50 Albumin/Globulin Ratio 0.7 (1.0-2.2) L 10/04/19 08:50 Lipase 28 U/L (22-51) 10/04/19 08:50 Urine Color YELLOW 10/04/19 09:15 Urine Clarity CLOUDY (CLEAR) 10/04/19 09:15 Urine pH 5.5 PH (5.0-7.5) 10/04/19 09:15 Ur Specific [place] >=1.030 (1.002-1.030) H 10/04/19 09:15 Urine Protein >=300 mg/dL (NEGATIVE) H 10/04/19 09:15 Urine Glucose (UA) NEGATIVE mg/dL (NEGATIVE) 10/04/19 09:15 Urine Ketones NEGATIVE mg/dL (NEGATIVE) 10/04/19 09:15 Urine Occult Blood SMALL (NEGATIVE) H 10/04/19 09:15 Urine Nitrite NEGATIVE (NEGATIVE) 10/04/19 09:15 Urine Bilirubin NEGATIVE (NEGATIVE) 10/04/19 09:15 Urine Urobilinogen 0.2 (NORMAL) E.U./dL (NORMAL) 10/04/19 09:15 Ur Leukocyte Esterase SMALL (NEGATIVE) H 10/04/19 09:15 Urine RBC 0-5 /HPF (0-5) 10/04/19 09:15 Urine WBC >25 /HPF (0-5) H 10/04/19 09:15 Urine WBC Clumps PRESENT 10/04/19 09:15 Ur Epithelial Cells RARE Transitional /HPF (<= Few) 10/04/19 09:15 Ur Squamous Epith Cells FEW Squamous (<= Few) 10/04/19 09:15 Urine Bacteria Moderate /HPF (None Seen) H 10/04/19 09:15 Ur Microscopic Review INDICATED 10/04/19 09:15 Urine Culture Comments INDICATED 10/04/19 09:15 Nasal Screen MRSA (PCR) NEGATIVE (NEGATIVE) 10/04/19 11:55 Coronavirus (PCR) NEGATIVE 10/04/19 09:15 - Procedures Procedures: Procedures REPLACEMENT OF LEFT LENS WITH SYNTH SUB, PERC APPROACH (07/20/16)
[2019-10-07] MEDS: traZODone 50 MG TABLET PO SCH (20:49)
[2019-10-07] MEDS: ATORVASTATIN 10 MG TABLET PO SCH (20:50)
[2019-10-07] MEDS: GABAPENTIN 300 MG CAPSULE PO SCH (20:50)
[2019-10-07] MEDS: polyethylene glycoL 3350 17 GM PACKET PO SCH (21:16)
[2019-10-08] MEDS: SODIUM CHLORIDE FLUSH 0.9% 10 ML SYRINGE IVP SCH ×4 (01:18→23:55)
[2019-10-08 04:58] LABS: CALCIUM 8.3 mg/dL (8.5-10.3); CREATININE 0.6 mg/dL (0.4-1.0)
[2019-10-08 05:07] LABS: % IRON SATURATION 7 % (20-50); IRON 27 ug/dL (28-170); TOTAL IRON BINDING CAPACITY 413 ug/dL (250-450); TRANSFERRIN 295 mg/dL (192-382)
[2019-10-08 05:23] LABS: FERRITIN 19.3 ng/mL (11.0-306.8)
[2019-10-08 05:26] LABS: FOLATE 10.22 ng/mL (5.90 - >24.8)
[2019-10-08] MEDS: FUROSEMIDE 40 MG/4 ML VIAL IVP SCH (06:03)
[2019-10-08] MEDS: SODIUM CHLORIDE FLUSH 0.9% 10 ML SYRINGE IVP PRN ×2 (06:04→21:39)
[2019-10-08 07:57] LABS: BASOPHILS # (AUTO) 0.1 10^3/uL (0.0-0.1); BASOPHILS % (AUTO) 0.9 %; EOSINOPHILS # (AUTO) 0.2 10^3/uL (0.0-0.7); EOSINOPHILS % (AUTO) 1.9 %; LYMPHOCYTES # (AUTO) 1.8 10^3/uL (1.5-3.5); LYMPHOCYTES % (AUTO) 14.3 %; MEAN CORPUSCULAR HEMOGLOBIN 26.1 pg (27.0-31.0); MEAN CORPUSCULAR HGB CONC 29.5 g/dL (32.0-36.0); MEAN CORPUSCULAR VOLUME 88.3 fL (81.0-99.0); MONOCYTES # (AUTO) 1.3 10^3/uL (0.0-1.0); MONOCYTES % (AUTO) 10.1 %; NEUTROPHILS # (AUTO) 7.8 10^3/uL (1.5-6.6); NEUTROPHILS % (AUTO) 60.1 %; PLT - PLATELET COUNT 307 10^3/uL (130-450); RED BLOOD COUNT 5.37 10^6/uL (4.20-5.40); RED CELL DISTRIBUTION WIDTH 16.5 % (12.0-15.0); WHITE BLOOD COUNT 12.9 x10^3/uL (4.8-10.8)
[2019-10-08] MEDS ORDERED: POTASSIUM CHLORIDE 20 MEQ TABLET PO ONE (08:00)
[2019-10-08] MEDS: polyethylene glycoL 3350 17 GM PACKET PO SCH (08:05)
[2019-10-08] MEDS: APIXABAN 5 MG TABLET PO SCH ×2 (08:06→20:28)
[2019-10-08] MEDS: METOPROLOL TARTRATE 50 MG TABLET PO SCH ×2 (08:06→20:28)
[2019-10-08] MEDS: MULTIVITAMIN W/MINERALS TABLET PO SCH (08:09)
[2019-10-08] MEDS: FERROUS GLUCONATE 324 MG TABLET PO SCH (08:12)
[2019-10-08 08:23] LABS: PLATELET ESTIMATE, MANUAL NORMAL (130-450,000) (NORMAL); PLATELET MORPHOLOGY NORMAL APPEARANCE (NORMAL); RBC MORPHOLOGY (MULTIPLE) NORMAL APPEARANCE (NORMAL)
[2019-10-08] MEDS: AZITHROMYCIN INJ 500 MG in SODIUM CHLORIDE 0.9% 250 ML IV SCH (08:59)
[2019-10-08] MEDS: cefTRIAXone 2 GM in SODIUM CHLORIDE 0.9% MINIBAG 100 ML IV SCH (10:05)
[2019-10-08] MEDS: NYSTATIN POWDER 15 GM TOP SCH ×2 (11:36→20:29)
[2019-10-08] MEDS: ZINC OXIDE 20% OINT 30 GM TUBE TOP PRN (11:36)
[2019-10-08] MEDS: LEVALBUTEROL 1.25 MG/3 ML NEB INH PRN (11:45)
--- NOTE | 2019-10-08 11:59 | PROVIDER PROGRESS NOTE ---
Assessment/Plan - Problem List (1) Acute on chronic respiratory failure with hypoxia and hypercapnia Assessment/Plan: The combination of causes is stabilizing. Lasix was changed to po daily. She is on her chronic 3L O2 per n.c. She was transferred out of ICU late yesterday, to [facility]. (2) Acute on chronic diastolic heart failure Assessment/Plan: The serum bicarb mil, suggesting volume contraction. IV to oral Lasix med adjustments were made today. Anticipating medically clear for D[facility] tomorrow. (3) Atrial fibrillation with rapid ventricular response Assessment/Plan: HR does increase with activity, likley related to deconditioning. (4) Community acquired pneumonia Assessment/Plan: Antibiotics Zithro and Ceftriaxone continue. (5) UTI (urinary tract infection) Assessment/Plan: Ceftriaxone covers this. (6) Vaginitis Assessment/Plan: Likely related to antibiotic use. Will D/C Mena, order Sitz bath and topical Clobetasol cream (7) Diabetes mellitus type 2 in obese Assessment/Plan: Continue cc diet and ss Insulin. (8) COPD without exacerbation Assessment/Plan: No wheezing, but her O2 needs continue and are at baseline. (9) Hypokalemia Assessment/Plan: Related to losses from iv bid Lasix use. Replaced Follow BMP daily. (10) TORI (obstructive sleep apnea) Assessment/Plan: Per the previous Hospitalist's note, she needs a sleep study to start CPAP. - Current Meds Current Meds: Current Medications Generic Name Dose Route Start Last Admin Trade Name Freq PRN Reason Stop Dose Admin Apixaban 5 mg 10/04/19 21:00 10/08/19 08:06 Eliquis PO 5 mg BID KARINA Administration Atorvastatin Calcium 5 mg 10/04/19 21:00 10/07/19 20:50 Lipitor PO 5 mg QPM KARINA Administration Ferrous Gluconate 324 mg 10/08/19 09:00 10/08/19 08:12 Fergon PO 324 mg DAILYWM KARINA Administration Gabapentin 900 mg 10/04/19 21:00 10/07/19 20:50 Neurontin PO 900 mg QPM KARINA Administration Ceftriaxone Sodium 2 gm/ 100 mls @ 200 mls/hr 10/07/19 09:00 10/08/19 10:40 Sodium Chloride IV 10/10/19 09:29 Infused DAILY KARINA Infusion Levalbuterol HCl 1.25 mg 10/07/19 10:30 10/08/19 11:45 Xopenex INH 1.25 mg Q4H PRN Administration Shortness of Air/Wheezing Lorazepam 1 mg 10/04/19 23:44 10/07/19 21:16 Ativan Inj (Vial) IVP 1 mg Q2H PRN Administration Anxiety Metoprolol Tartrate 100 mg 10/06/19 09:00 10/08/19 08:06 Lopressor PO 100 mg BID KARINA Administration Mineral Oil 1 applic 10/04/19 11:38 10/04/19 13:00 Cavilon TOP 1 applic PRN PRN Administration Skin Care Multi-Ingredient Ointment 1 applic 10/04/19 11:38 10/08/19 11:36 Zinc Oxide TOP 1 applic PRN PRN Administration Skin Care Multivitamins/Minerals 1 tab 10/07/19 10:00 10/08/19 08:09 Theragran M PO 1 tab DAILYWM KARINA Administration Nystatin 1 applic 10/04/19 13:00 10/08/19 11:36 Nystop TOP 1 applic BID KARINA Administration Polyethylene Glycol 17 gm 10/07/19 21:00 10/08/19 08:05 Miralax PO 17 gm DAILY KARINA Administration Sodium Chloride 10 ml 10/04/19 17:00 10/08/19 09:00 Normal Saline Flush 0.9% IVP 10 ml 0100,0900,1700 KARINA Administration Sodium Chloride 10 ml 10/04/19 10:25 10/08/19 06:04 Normal Saline Flush 0.9% IVP 10 ml PRN PRN Administration NEEDED PER PROVIDER ORDERS Trazodone HCl 50 mg 10/04/19 21:00 10/07/19 20:49 Desyrel PO 50 mg QPM KARINA Administration - Lab Result Fish Bone Diagrams: 10/08/19 04:20 10/08/19 04:20 - Additional Planning My Orders: My Active Orders 10/07/19 21:00 polyethylene glycoL 3350 [Miralax] 17 gm PO DAILY 10/08/19 09:00 Ferrous Gluconate [Fergon] 324 mg PO DAILYWM 10/08/19 09:17 Miscellaenous Nursing Order [RC] QSHIFT 10/09/19 09:00 Furosemide [Lasix] 40 mg PO DAILY Subjective - Subjective Patient Reports: Feeling Better, Other ("I have vaginal itch") Objective Vital Signs: Vital Signs - 24 hr 10/07/19 10/07/19 10/07/19 12:00 13:00 13:30 Temperature 36.9 C Heart Rate 87 Heart Rate [ 90 101 H Monitoring electrodes] Respiratory 26 H 21 24 Rate Blood Pressure Blood Pressure 115/78 126/108 H [Left Radial artery] O2 Saturation 92 84 L 10/07/19 10/07/19 10/07/19 14:00 15:00 16:00 Temperature Heart Rate Heart Rate [ 93 93 92 Monitoring electrodes] Respiratory 23 24 18 Rate Blood Pressure Blood Pressure 110/76 123/108 H 136/94 H [Left Radial artery] O2 Saturation 94 91 L 93 10/07/19 10/07/19 10/07/19 17:00 18:00 19:00 Temperature 36.7 C Heart Rate Heart Rate [ 97 115 H 111 H Monitoring electrodes] Respiratory 20 30 H 32 H Rate Blood Pressure Blood Pressure 134/90 H 146/85 H 96/64 [Left Radial artery] O2 Saturation 96 93 95 10/07/19 10/07/19 10/07/19 19:31 20:45 20:50 Temperature 36.8 C Heart Rate Heart Rate [ 113 H Monitoring electrodes] Respiratory 31 H Rate Blood Pressure 130/94 H Blood Pressure 130/94 H [Left Radial artery] O2 Saturation 95 10/08/19 10/08/19 10/08/19 00:14 04:28 08:06 Temperature 36.7 C Heart Rate Heart Rate [ 95 91 Monitoring electrodes] Respiratory 27 H 24 Rate Blood Pressure 123/87 H Blood Pressure 117/70 104/70 [Left Radial artery] O2 Saturation 95 95 10/08/19 08:14 Temperature 36.4 C L Heart Rate Heart Rate [ 95 Monitoring electrodes] Respiratory 18 Rate Blood Pressure Blood Pressure 123/87 H [Left Radial artery] O2 Saturation 93 Oxygen O2 Source Nasal cannula I&O (Last 24 Hrs): Intake and Output Totals x24h 10/06/19 10/07/19 10/08/19 23:59 23:59 23:59 Intake Total 1350 1225 825 Output Total 3756 4625 1425 Balance -2453 -2600 -600 General: Alert, Oriented x3 HEENT: Mucous membr. moist/pink, Other (wearing O2 n.c.) Neck: Supple, No JVD Neuro: Alert, Non Focal Cardiovascular: Other (Irreg) Respiratory: No respiratory distress, Breath sounds nml Abdomen: Soft, Other (Obese with pannus) Extremities: No edema, Other (Dry scaly feet) - Results Results: Laboratory Results WBC 12.9 x10^3/uL (4.8-10.8) H 10/08/19 04:20 RBC 5.37 10^6/uL (4.20-5.40) 10/08/19 04:20 Hgb 14.0 g/dL (12.0-16.0) 10/08/19 04:20 Hct 47.4 % (37.0-47.0) H 10/08/19 04:20 MCV 88.3 fL (81.0-99.0) 10/08/19 04:20 MCH 26.1 pg (27.0-31.0) L 10/08/19 04:20 MCHC 29.5 g/dL (32.0-36.0) L 10/08/19 04:20 RDW 16.5 % (12.0-15.0) H 10/08/19 04:20 Plt Count 307 10^3/uL (130-450) 10/08/19 04:20 MPV 12.0 fL (7.9-10.8) H 10/08/19 04:20 Neut # (Auto) 7.8 10^3/uL (1.5-6.6) H 10/08/19 04:20 Lymph # (Auto) 1.8 10^3/uL (1.5-3.5) 10/08/19 04:20 [place] # (Auto) 1.3 10^3/uL (0.0-1.0) H 10/08/19 04:20 Eos # (Auto) 0.2 10^3/uL (0.0-0.7) 10/08/19 04:20 Baso # (Auto) 0.1 10^3/uL (0.0-0.1) 10/08/19 04:20 Absolute Nucleated RBC 0.00 x10^3/uL 10/08/19 04:20 Nucleated RBC % 0.0 /100WBC 10/08/19 04:20 Manual Slide Review Indicated 10/08/19 04:20 WBC Morphology (NORMAL) 10/08/19 04:20 Platelet Estimate NORMAL (130-450,000) (NORMAL) 10/08/19 04:20 Platelet Morphology NORMAL APPEARANCE (NORMAL) 10/08/19 04:20 RBC Morph Micro Appear NORMAL APPEARANCE (NORMAL) 10/08/19 04:20 Bld Gas Analysis Time 0952 10/04/19 09:45 Sample Site RIGHT RADIAL 10/04/19 09:45 ABG pH 7.29 (7.35-7.45) L 10/04/19 09:45 ABG pCO2 63 mmHg (34-45) H* 10/04/19 09:45 ABG pO2 84 mmHg (80-100) 10/04/19 09:45 ABG HCO3 29.8 mmol/L (22.0-26.0) H 10/04/19 09:45 ABG Total CO2 31.7 MMOL/L (21.0-29.0) H 10/04/19 09:45 ABG O2 Saturation 97 % (94-98) 10/04/19 09:45 ABG Base Excess 1.5 mmol/L (-2.0-3.0) 10/04/19 09:45 Miha Test POSITIVE 10/04/19 09:45 O2 Delivery Device BiPAP 10/04/19 09:45 FiO2 35.00 10/04/19 09:45 EPAP 5 cmH2O 10/04/19 09:45 IPAP 16 cmH2O 10/04/19 09:45 Sodium 141 mmol/L (135-145) 10/08/19 04:20 Potassium 3.2 mmol/L (3.5-5.0) L 10/08/19 04:20 Chloride 90 mmol/L (101-111) L 10/08/19 04:20 Carbon Dioxide 41 mmol/L (21-32) H* 10/08/19 04:20 Anion Gap 10.0 (6-13) 10/08/19 04:20 BUN 20 mg/dL (6-20) 10/08/19 04:20 Creatinine 0.6 mg/dL (0.4-1.0) 10/08/19 04:20 Estimated GFR (MDRD) 97 (>89) 10/08/19 04:20 Glucose 120 mg/dL (70-100) H 10/08/19 04:20 Glycated Hemoglobin 5.6 % (4.6-6.2) 10/05/19 05:24 Estim Average Glucose 114 (70-100) H 10/05/19 05:24 Lactic Acid 2.0 mmol/L (0.5-2.2) 10/04/19 09:54 Calcium 8.3 mg/dL (8.5-10.3) L 10/08/19 04:20 Phosphorus 4.3 mg/dL (2.5-4.6) 10/07/19 05:18 Magnesium 2.3 mg/dL (1.7-2.8) 10/08/19 04:20 Iron 27 ug/dL (28-170) L 10/08/19 04:20 TIBC 413 ug/dL (250-450) 10/08/19 04:20 % Saturation 7 % (20-50) L 10/08/19 04:20 Transferrin 295 mg/dL (192-382) 10/08/19 04:20 Ferritin 19.3 ng/mL (11.0-306.8) 10/08/19 04:20 Total Bilirubin 0.7 mg/dL (0.2-1.0) 10/04/19 08:50 AST 42 IU/L (10-42) 10/04/19 08:50 ALT 30 IU/L (10-60) 10/04/19 08:50 Alkaline Phosphatase 128 IU/L (42-121) H 10/04/19 08:50 Troponin I High Sens 12.4 ng/L (2.3-14.8) 10/04/19 12:30 B-Natriuretic Peptide 357 pg/mL (5-100) H 10/05/19 05:24 Total Protein 8.0 g/dL (6.7-8.2) 10/04/19 08:50 Albumin 3.0 g/dL (3.2-5.5) L 10/06/19 05:09 Globulin 4.7 g/dL (2.1-4.2) H 10/04/19 08:50 Albumin/Globulin Ratio 0.7 (1.0-2.2) L 10/04/19 08:50 Lipase 28 U/L (22-51) 10/04/19 08:50 Vitamin B12 283 pg/mL (180-914) 10/08/19 04:20 Folate 10.22 ng/mL (5.90 - >24.8) 10/08/19 04:20 Urine Color YELLOW 10/04/19 09:15 Urine Clarity CLOUDY (CLEAR) 10/04/19 09:15 Urine pH 5.5 PH (5.0-7.5) 10/04/19 09:15 Ur Specific [place] >=1.030 (1.002-1.030) H 10/04/19 09:15 Urine Protein >=300 mg/dL (NEGATIVE) H 10/04/19 09:15 Urine Glucose (UA) NEGATIVE mg/dL (NEGATIVE) 10/04/19 09:15 Urine Ketones NEGATIVE mg/dL (NEGATIVE) 10/04/19 09:15 Urine Occult Blood SMALL (NEGATIVE) H 10/04/19 09:15 Urine Nitrite NEGATIVE (NEGATIVE) 10/04/19 09:15 Urine Bilirubin NEGATIVE (NEGATIVE) 10/04/19 09:15 Urine Urobilinogen 0.2 (NORMAL) E.U./dL (NORMAL) 10/04/19 09:15 Ur Leukocyte Esterase SMALL (NEGATIVE) H 10/04/19 09:15 Urine RBC 0-5 /HPF (0-5) 10/04/19 09:15 Urine WBC >25 /HPF (0-5) H 10/04/19 09:15 Urine WBC Clumps PRESENT 10/04/19 09:15 Ur Epithelial Cells RARE Transitional /HPF (<= Few) 10/04/19 09:15 Ur Squamous Epith Cells FEW Squamous (<= Few) 10/04/19 09:15 Urine Bacteria Moderate /HPF (None Seen) H 10/04/19 09:15 Ur Microscopic Review INDICATED 10/04/19 09:15 Urine Culture Comments INDICATED 10/04/19 09:15 Nasal Screen MRSA (PCR) NEGATIVE (NEGATIVE) 10/04/19 11:55 Coronavirus (PCR) NEGATIVE 10/04/19 09:15 - Procedures Procedures: Procedures REPLACEMENT OF LEFT LENS WITH SYNTH SUB, PERC APPROACH (07/20/16)
[2019-10-08] MEDS ORDERED: CALCIUM GLUCONATE 1,000 MG in SODIUM CHLORIDE 0.9% 50 ML IV ONE (12:00)
[2019-10-08] MEDS: CLOBETASOL 0.05% OINT 15 GM TUBE TOP SCH ×2 (12:52→20:29)
[2019-10-08] MEDS: LORazepam 2 MG/ML VIAL IVP PRN (12:53)
[2019-10-08] MEDS ORDERED: LORazepam 2 MG/ML VIAL IVP PRN (18:00)
[2019-10-08] MEDS: GABAPENTIN 300 MG CAPSULE PO SCH (20:28)
[2019-10-08] MEDS: ATORVASTATIN 10 MG TABLET PO SCH (20:35)
[2019-10-08] MEDS: traZODone 50 MG TABLET PO SCH (20:35)
[2019-10-08] MEDS ORDERED: polyethylene glycoL 3350 17 GM PACKET PO SCH (21:00)
[2019-10-09 05:35] LABS: CALCIUM 8.5 mg/dL (8.5-10.3); CREATININE 0.5 mg/dL (0.4-1.0)
--- NOTE | 2019-10-09 08:24 | Discharge Plan ---
"Discharge Plan for SNF / SKILLED NURSING - Discharge Plan And Transition Orders Problem Reviewed?: Yes Disposition: 03 SNF DC/Xfer Condition: Stable Allergies and Adverse Reactions: Allergies Allergy/AdvReac Type Severity Reaction Status Date / Time No Known Drug Allergies Allergy Verified 07/07/19 00:23 Health Concerns: Admitted with shortness of breath related to acute exacerbation of diastolic heart failure, A. fib with RVR and underlying COPD requiring 3 L of oxygen at home. She needed IV diuresis, BiPAP and ICU stay and medication adjustments for rate control. Antibiotics needed for a UTI and management of vaginitis. Severe deconditioning due to the ICU stay and she is starting PT and OT for strengthening. Plan of Treatment: Finished course of antibiotics, follow med list which has been adjusted slightly from her home meds. Physical therapy at SNF before discharge to [facility]. Care Goals: Improvement in symptoms, strengthening with rehab, and stabilization are the goals. Assessment: Patient understands and is agreeable with the plan. - SNF / [facility] Transition Orders Admit to (Facility): [facility] in [place], [place] Discharge Diagnosis: 1) Acute on chronic respiratory failure with hypoxia 2) Acute on chronic diastolic heart failure 3) COPD, on home O2 4) Afib with RVR 5) DM, type 2, diet controlled 6) E. coli UTI 7) Vaginitis 8) Hypokalemia 9) Iron deficiency anemia 10) Sleep apnea, not on CPAP 11) Obesity, BMI 44 12) Weakness and deconditioning after ICU stay 13) CODE status: DNR Medicare Certification Statement: I certify that [facility] is medically necessary on a continuing basis for any of the conditions for which she/he is receiving care during hospitalization. Notify PCP of admission and forward orders to primary provider for signature. Weight on admission and: Daily Call PCP immediately if weight increases by: 4 kg Other Notification Orders: Call PCP immediately if patient develops dyspnea, chest pain/tightness or edema. House Bowel Program: Yes Additional Bowel Program Orders: If no BM after 2 days, nurse may give M.O.M. 30ml PO PRN and/or ducolax Supp 1 IN and/or RAMA 250mg P.O., and/or senna 1-2 tabs PO. On day 3 nurse may give repeat above order until residents constipation is resolved. Annual Influenza Vaccine (between Jan 19 and March 31st): Yes Two-step PPD per [facility] [id number] or approved exception documents: Yes Treatments & Other Orders: Daily PT and OT. Oxygen Orders: 3L O2 per nasal cannula continuously Lab Tests or X-ray Orders: BMP every Mon Medication Orders: PLEASE REFER TO THE DISCHARGE MEDICATION LIST. Insulin Orders?: No - Medications New Prescriptions: Amox/Clav 875/125 [Augmentin] 1 each PO Q12H #8 tablet Clobetasol 0.05% Oint [Temovate 0.05% Oint] 1 applic TOP BID #1 tube Ferrous Gluconate 240 mg PO DAILY #30 tablet LORazepam [Ativan] 1 mg PO BID PRN #15 tablet PRN Reason: Anxiety Nystatin [Nystop] 1 applic TOP BID #1 bottle - Diet Type: No added salt (5 carb choice Diabetic diet, 2g sodium restriction) Texture: Regular Liquids: Thin May have monthly special meal: Yes - Therapies | Activity Therapy: Evaluation | Treat if indicated: PT, OT Rehabilitation Potential: Maximize functional status Activity: Activity as Tolerated Weight Bearing: Full Weight Assistance Devices: Walker Follow Up: F/U with PCP, MYCHAL Tovar, after discharge from SNF."
--- NOTE | 2019-10-09 08:25 | DISCHARGE SUMMARY ---
Discharge Summary Admit Date: 10/04/19 Discharge Date: 10/09/19 Discharging Provider: Shelby Purvis MD Primary Care Provider: MYCHAL Tovar Code Status: Do Not Attempt Resuscitation Condition at Discharge: Stable Discharge Disposition: SNF DC/Xfer Discharge Facility Name: [facility] History of Present Illness: From the admission H&P of Dr Donal Lira: This is a 79-year-old female with a past medical history significant for COPD on 3 L of oxygen at baseline, heart failure with preserved ejection fraction, atri al fibrillation, type 2 diabetes mellitus who presents today complaining of worsening shortness of breath over the past 3 to 4 days. She states her dyspnea became so severe this morning that she called EMS. She states that she has had a nonproductive cough and worsening lower extremity edema over the past few days. She has been taking her home Lasix 80 mg daily. She reports no fevers or chills. Denies leaving her house or any recent sick contacts. She has reported occasional wheezing and she has been compliant with her oxygen. Reports no dysuria or urgency does have frequency and is incontinent at baseline. She reports her history of obstructive sleep apnea but does not use CPAP. She denies any chest pain. Upon EMS arrival, she is found to have on oxygen saturation of 77% on 3 L of oxygen. In the emergency department, she was found to be in atrial fibrillation with rapid ventricular response and in heart failure. She was given Lasix 60 mg IV and 20 mg of diltiazem IV. She was quite somnolent and her ABG showed an elevated carbon dioxide, thus she was placed on BiPAP and admitted to the ICU. She improved and was able to be more interactive and converse. Given her resp iratory failure, the Hospitalist Team was consulted for admission. I did discuss goals of care with the patient and she states that she is a DNR and would not want mechanical ventilation if she were to decline from a respiratory standpoint. - HOSPITAL COURSE Hospital Course: 1) Acute on chronic respiratory failure with hypoxia and hypercapnia She was desaturating at 77% on 3L home O2 at presentation. Her x-ray was consistent with pulmonary edema. The ABG showed pH 7.29/pCO2 63/ PO2 84 on 35% FIO2 and thus BIPAP was started. She required that for several days, during which time she was diuresed. When she tolerated her home O2 settings, she was transferred out of the ICU. Her COVID nasal swab was neg x2. 2) Acute on chronic diastolic heart failure The BNP was 530, troponins were normal x2. It was likely the RVR of Afib that put her into heart failure. An Echo was done and confirmed preserved LVEF and diastolic dysfunction. Also found were normal RV size and function and mild pulmonary HTN, with PA pressure 41 mmHg. She required several days of iv b.i.d Lasix, and had a 4 kg weight loss while here. BNP improved to 300's. At discharge, she was put on Lasix 40 mg daily and a low salt diet. 3) COPD, on home O2 She did not have wheezing or require steroid treatment this admission. Nebulizer treatments were ordered while here. 4) Afib with RVR This was easily controlled with several iv med doses and then she returned to her usual home dose of Metoprolol. 2 days before discharge, the Metoprolol dose was decreased due to transient very low BPs (from being diuresed). She was kept on her home dose of Eliquis for stroke prophylaxis. 5) DM, type 2, diet controlled Her A1c is 5.6%. This has improved from 7.9%. No Metformin or sliding scale Insulin was needed and we stopped blood glucose checks, as her blood sugars were stable. Her Metformin was not resumed at discharge, just a carb controlled diet was ordered for the SNF. 6) E. coli UTI Her admission urinalysis was suggestive of infection. She did report some frequency at home and so we started treating her for urinary tract infection. The urine culture did grow E coli. The blood cultures remained neg to date. She completed 3 days of iv Ceftriaxone treatment here and was transitioned to oral Augmentin bid to take for 4 more days, at discharge. 7) Vaginitis During her final 2 days, she complained of vaginal itch and Clobestrol cream bid was ordered. 8) Hypokalemia She is chronically low, related to loop diuretic use. He home Potassium dose was continued at discharge to [facility] and weekly BMP testing there was ordered. 9) Iron deficiency anemia Her Hgb was running 13, and the Director Community Health Nursing advised to check serum levels were checked and she was low in Iron, thus daily oral replacement was started. 10) Morbid obesity, BMI 44 Weight loss would be beneficial. 11) Sleep apnea, not on CPAP Her Hx states she has sleep apnea but does not use a CPAP device. She would need repeat sleep testing to be prescribed a CPAP device. 12) Physical deconditioning, after ICU stay She was seen by PT and OT and was felt to need conditioning and was discharged to [facility] in [facility] [address], before her new home at [facility], now planned. - ALLERGIES Allergies/Adverse Reactions: Allergies Allergy/AdvReac Type Severity Reaction Status Date / Time No Known Drug Allergies Allergy Verified 07/07/19 00:23 - MEDICATIONS Home Medications: Ambulatory Orders Medication Instructions Recorded Confirmed Gabapentin 1,200 mg PO QPM 05/03/15 10/04/19 traZODone [Desyrel] 50 mg PO QPM 05/03/15 10/04/19 Albuterol 2.5 mg INH Q4HR PRN #50 neb 04/15/19 10/04/19 Apixaban [Eliquis] 5 mg PO BID #20 tablet 04/15/19 10/04/19 Metoprolol Tartrate [Lopressor] 75 mg PO BID #60 tablet 04/15/19 10/04/19 Atorvastatin [Lipitor] 5 mg PO QPM 05/07/19 10/04/19 Ipratropium [Atrovent] 0.5 mg INH Q6H PRN 05/07/19 10/04/19 Potassium Chloride [Klor-Con 10] 10 meq PO DAILY 10/04/19 10/04/19 Amox/Clav 875/125 [Augmentin] 1 each PO Q12H #8 tablet 10/09/19 Clobetasol 0.05% Oint [Temovate 1 applic TOP BID #1 tube 10/09/19 0.05% Oint] Ferrous Gluconate 240 mg PO DAILY #30 tablet 10/09/19 Furosemide [Lasix] 40 mg PO DAILY #30 tablet 10/09/19 10/04/19 LORazepam [Ativan] 1 mg PO BID PRN #15 tablet 10/09/19 Nystatin [Nystop] 1 applic TOP BID #1 bottle 10/09/19 - PHYSICAL EXAM AT DISCHARGE General Appearance: positive: No acute distress, Alert Eyes Bilateral: positive: Normal inspection, EOMI ENT: positive: No signs of dehydration Neck: positive: Nml inspection, No JVD Respiratory: positive: No respiratory distress, Breath sounds nml Cardiovascular: positive: No murmur, Irregularly irregular Abdomen: positive: Non-tender, Other (Obese witha pannus) Skin: positive: Color nml, No rash Extremities: positive: No pedal edema, Other (Dry scaly skin of feet) Neurologic/Psychiatric: positive: Oriented x3, Other (Non-focal) - LABS Result Diagrams: 10/08/19 04:20 10/09/19 04:50 - DIAGNOSTIC IMAGING Diagnostic Imaging Results: Final report reviewed - FOLLOW UP Follow Up: F/U with PCP after discharge from SNF - TIME SPENT Time Spent in Discharge (Minutes): 60
[2019-10-09] MEDS: APIXABAN 5 MG TABLET PO SCH (08:26)
[2019-10-09] MEDS: MULTIVITAMIN W/MINERALS TABLET PO SCH (08:26)
[2019-10-09] MEDS: polyethylene glycoL 3350 17 GM PACKET PO SCH (08:26)
[2019-10-09] MEDS: METOPROLOL TARTRATE 50 MG TABLET PO SCH (08:27)
[2019-10-09] MEDS: FERROUS GLUCONATE 324 MG TABLET PO SCH (08:28)
[2019-10-09] MEDS: CLOBETASOL 0.05% OINT 15 GM TUBE TOP SCH (08:28)
[2019-10-09] MEDS: cefTRIAXone 2 GM in SODIUM CHLORIDE 0.9% MINIBAG 100 ML IV SCH (08:29)
[2019-10-09] MEDS: MIN OIL/DIMETHICON/COCONUT OIL 92 GM TUBE TOP PRN (08:29)
[2019-10-09] MEDS: NYSTATIN POWDER 15 GM TOP SCH (08:29)
[2019-10-09] MEDS: SODIUM CHLORIDE FLUSH 0.9% 10 ML SYRINGE IVP SCH (08:30)
[2019-10-09] MEDS ORDERED: FUROSEMIDE 40 MG TABLET PO SCH (09:00)
[2019-10-09 13:09] VITALS: BP 108/45
[2019-10-10] MEDS ORDERED: FUROSEMIDE 40 MG TABLET PO SCH (09:00)
== END 2019-10-09 14:55 | DRG 291 ==
LOC: EDUNIT# → ED 08:30 → ICU 10:25 → MS2 10-08 15:00
PROVIDERS: ADMIT Internal Medicine; ATTEND Internal Medicine
DX: I11.0 Hypertensive heart disease with heart failure (principal); I50.9 Heart failure, unspecified; J96.22 Acute and chronic respiratory failure with hypercapnia; J96.21 Acute and chronic respiratory failure with hypoxia; J18.9 Pneumonia, unspecified organism; I25.119 Atherosclerotic heart disease of native coronary artery with unspecified angina pectoris; G47.30 Sleep apnea, unspecified; E66.2 Morbid (severe) obesity with alveolar hypoventilation; Z68.41 Body mass index [BMI] 40.0-44.9, adult; N30.00 Acute cystitis without hematuria; J44.0 Chronic obstructive pulmonary disease with (acute) lower respiratory infection; J44.9 Chronic obstructive pulmonary disease, unspecified; I50.33 Acute on chronic diastolic (congestive) heart failure; Y95 Nosocomial condition; I48.91 Unspecified atrial fibrillation; I27.20 Pulmonary hypertension, unspecified; G47.33 Obstructive sleep apnea (adult) (pediatric); E11.9 Type 2 diabetes mellitus without complications; E87.6 Hypokalemia; D50.9 Iron deficiency anemia, unspecified; B96.20 Unspecified Escherichia coli [E. coli] as the cause of diseases classified elsewhere; N76.0 Acute vaginitis; F41.9 Anxiety disorder, unspecified; R32 Unspecified urinary incontinence; R35.0 Frequency of micturition; L53.9 Erythematous condition, unspecified; Z66 Do not resuscitate; Z74.09 Other reduced mobility; Z20.828 Contact with and (suspected) exposure to other viral communicable diseases; Z99.81 Dependence on supplemental oxygen; Z79.01 Long term (current) use of anticoagulants; Z79.51 Long term (current) use of inhaled steroids; Z79.84 Long term (current) use of oral hypoglycemic drugs; Z95.5 Presence of coronary angioplasty implant and graft; Z86.73 Personal history of transient ischemic attack (TIA), and cerebral infarction without residual deficits; Z87.891 Personal history of nicotine dependence
CPT/HCPCS: 36415; 36600; 51702; 71045; 80048; 80053; 81001; 82040; 82607; 82728; 82746; 82803; 83036; 83540; 83605; 83690; 83735; 83880; 84100; 84466; 84484; 85025; 87040; 87077; 87086; 87150; 87181; 93005; 93306; 93970; 94640; 94660; 96374; 96375; 97110; 97116; 97161; 97530; 99285; A6250; A9270; J1940; J2060; J7040; U0004; 81003; 81599

== ENCOUNTER 2020-01-15 10:44 | Outpatient (CLI) | payer MEDICARE ==
[2020-01-15 18:06] LABS: BASOPHILS # (AUTO) 0.1 10^3/uL (0.0-0.1); BASOPHILS % (AUTO) 0.5 %; EOSINOPHILS # (AUTO) 0.1 10^3/uL (0.0-0.7); EOSINOPHILS % (AUTO) 1.1 %; HGB - HEMOGLOBIN 14.3 g/dL (12.0-16.0); LYMPHOCYTES # (AUTO) 1.7 10^3/uL (1.5-3.5); LYMPHOCYTES % (AUTO) 12.9 %; MEAN CORPUSCULAR HGB CONC 29.8 g/dL (32.0-36.0); MEAN CORPUSCULAR VOLUME 84.1 fL (81.0-99.0); MEAN PLATELET VOLUME 11.5 fL (7.9-10.8); MONOCYTES % (AUTO) 7.6 %; NEUTROPHILS % (AUTO) 77.4 %; PLT - PLATELET COUNT 322 10^3/uL (130-450); RED BLOOD COUNT 5.71 10^6/uL (4.20-5.40); RED CELL DISTRIBUTION WIDTH 18.7 % (12.0-15.0); WHITE BLOOD COUNT 12.9 x10^3/uL (4.8-10.8)
[2020-01-15 18:27] LABS: ALBUMIN 3.2 g/dL (3.2-5.5); ALBUMIN/GLOBULIN RATIO 0.8 (1.0-2.2); BILIRUBIN,TOTAL 0.8 mg/dL (0.2-1.0); CALCIUM 8.7 mg/dL (8.5-10.3); CREATININE 0.7 mg/dL (0.4-1.0); TOTAL PROTEIN 7.3 g/dL (6.7-8.2)
== END 2020-01-15 23:59 | disposition home or self-care (01) ==
LOC: LAB.WCP 10:44
PROVIDERS: ATTEND Physician Assistant
DX: I50.33 Acute on chronic diastolic (congestive) heart failure (principal)
CPT/HCPCS: 36415; 80053; 83880; 85025

== ENCOUNTER 2020-01-29 20:06 | Outpatient (CLI) | payer MEDICARE | END 2020-01-29 20:07 | disposition EMS.NT | LOC: EMS 20:06 | PROVIDERS: ATTEND Surgery | DX: R07.81 Pleurodynia (principal); W01.198A Fall on same level from slipping, tripping and stumbling with subsequent striking against other object, initial encounter; Y92.029 Unspecified place in mobile home as the place of occurrence of the external cause ==

== ENCOUNTER 2020-02-11 10:50 | Outpatient (CLI) | payer MEDICARE | END 2020-02-11 10:51 | disposition critical access hospital (66) | LOC: EMS 10:50 | PROVIDERS: ATTEND Surgery | DX: R60.0 Localized edema (principal) | CPT/HCPCS: A0425; A0429 ==

== ENCOUNTER 2020-02-11 11:11 | Emergency (ER) | payer MEDICARE ==
--- NOTE | 2020-02-11 11:42 | ED Physician Documentation ---
History of Present Illness - Stated complaint Stated Complaint: LOWER EXTREMITY EDEMA - Chief complaint Chief Complaint: Cardiac - History obtained from History obtained from: Patient - Additonal information Additional information: 79 yo F w/ pmh of atrial fibrillation, COPD, CHF, oxygen dependence (3L NC at home), and morbid obesity presents at the urgence of her home health nurse for increasing lower ext edema. Pt states over the past week she has noticed increased bilateral lower leg swelling and has gained approximately 14 lbs. She has a mild increase in her baseline dyspnea. Both her lower legs are more sore than normal. Reports medication compliance though has not taken her meds yet this AM. States she has been adhering to a diabetic diet but "I do overeat sometimes." Denies fever, chills, cough, chest pain, abd pain, n/v/d, or urinary sx. States she really didn't feel the need to come in but her nurse wanted her to. Review of Systems Constitutional: reports: Reviewed and negative Cardiac: reports: Pedal edema. denies: Chest pain / pressure, Palpitations, Calf pain Respiratory: reports: Dyspnea. denies: Cough, Hemoptysis, Wheezing GI: reports: Reviewed and negative : reports: Reviewed and negative Skin: reports: Reviewed and negative Musculoskeletal: reports: Extremity pain, Extremity swelling. 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 : Incontinence HEENT: Other Psych: None Musculoskeletal: None Derm: None - Past Surgical History Past Surgical History: Yes General: Cholecystectomy /MULTI PURPOSE MACHINE OPERATOR: Hysterectomy Cardiovascular: Coronary stent, Lobectomy HEENT: Cataracts, Tonsil/Adenoidectomy - Present Medications Home Medications: Ambulatory Orders Medication Instructions Recorded Confirmed Gabapentin 900 mg PO QPM 05/03/15 12/24/19 traZODone [Desyrel] 50 mg PO QPM 05/03/15 12/24/19 Albuterol 2.5 mg INH Q4HR PRN #50 neb 04/15/19 12/24/19 Apixaban [Eliquis] 5 mg PO BID #20 tablet 04/15/19 12/24/19 Atorvastatin [Lipitor] 5 mg PO QPM 05/07/19 12/24/19 Ipratropium [Atrovent] 0.5 mg INH Q6H PRN 05/07/19 12/24/19 Potassium Chloride [Klor-Con 10] 10 meq PO DAILY 10/04/19 12/24/19 Furosemide [Lasix] 40 mg PO DAILY #30 tablet 10/09/19 12/24/19 Nystatin [Nystop] 1 applic TOP BID #1 bottle 10/09/19 12/24/19 Clotrimazole 1% Cream [Lotrimin 1% 1 applic TOP BID 28 Days #2 tube 12/27/19 Cream] Furosemide [Lasix] 20 mg PO DAILY #30 tablet 12/27/19 Metoprolol Tartrate [Lopressor] 100 mg PO BID 30 Days #60 tablet 12/27/19 cefUROXime axetiL [Ceftin] 500 mg PO BID 2 Days #8 tablet 12/27/19 Furosemide [Lasix] 40 mg PO DAILY #5 tablet 02/11/20 - Allergies Allergies/Adverse Reactions: Allergies Allergy/AdvReac Type Severity Reaction Status Date / Time No Known Drug Allergies Allergy Verified 02/11/20 11:17 - Social History Does the pt smoke?: No Smoking Status: Never smoker Does the pt drink ETOH?: No Does the pt have substance abuse?: No - Immunizations Immunizations are current?: Yes - POLST Patient has POLST: No PD ED PE NORMAL - Vitals Vital signs reviewed: Yes - General General: Alert and oriented X 3, No acute distress, Well developed/nourished - Cardiac Cardiac: No murmur, Other (irregularly irregular) - Respiratory Respiratory: Other (4lNC, mild tachypnea, rhonchi througout, no wheezing) - Abdomen Abdomen: Normal bowel sounds, Soft, Non tender, Non distended, Other (morbidly obese) - Derm Derm: Normal color, Warm and dry, Other (red, meghna bilateral lower legs) - Extremities Extremities: Other (2+ edema bilateral lower legs) - Neuro Neuro: Alert and oriented X 3 Eye Opening: Spontaneous Motor: Obeys Commands Verbal: Oriented GCS Score: 15 - Psych Psych: Normal mood Results - Vitals Vitals: Vital Signs - 24 hr 02/11/20 02/11/20 02/11/20 11:17 11:53 12:23 Temperature 36.5 C Heart Rate 55 L 110 H 114 H Respiratory 16 25 H 22 Rate Blood Pressure 151/117 H 97/78 113/98 H O2 Saturation 93 100 99 02/11/20 02/11/20 02/11/20 12:53 13:23 13:53 Temperature Heart Rate 114 H 129 H 139 H Respiratory 23 22 22 Rate Blood Pressure 113/98 H 134/108 H 150/110 H O2 Saturation 95 95 100 02/11/20 02/11/20 02/11/20 14:23 14:53 15:00 Temperature Heart Rate 144 H 123 H 106 H Respiratory 14 14 16 Rate Blood Pressure 164/51 H 164/151 H 123/79 O2 Saturation 99 99 99 02/11/20 15:30 Temperature 36.1 C L Heart Rate 105 H Respiratory 18 Rate Blood Pressure 127/115 H O2 Saturation 98 Oxygen O2 Source Room air - Labs Labs: Laboratory Tests 02/11/20 02/11/20 02/11/20 11:58 11:58 11:58 WBC 14.6 H RBC 5.71 H Hgb 14.2 Hct 49.5 H MCV 86.7 MCH 24.9 L MCHC 28.7 L RDW 18.5 H Plt Count 240 MPV 11.3 H Neut # (Auto) 11.0 H Lymph # (Auto) 2.0 [place] # (Auto) 1.1 H Eos # (Auto) 0.4 Baso # (Auto) 0.1 Absolute Nucleated RBC 0.00 Nucleated RBC % 0.0 Manual Slide Review Indicated Platelet Estimate NORMAL (130-450,000) Platelet Morphology NORMAL APPEARANCE RBC Morph Micro Appear NORMAL APPEARANCE PT 14.0 H INR 1.3 H Sodium 141 Potassium 4.0 Chloride 98 L Carbon Dioxide 36 H Anion Gap 7.0 BUN 20 Creatinine 0.6 Estimated GFR (MDRD) 97 Glucose 131 H Calcium 9.0 Troponin I High Sens 02/11/20 11:58 WBC RBC Hgb Hct MCV MCH MCHC RDW Plt Count MPV Neut # (Auto) Lymph # (Auto) [place] # (Auto) Eos # (Auto) Baso # (Auto) Absolute Nucleated RBC Nucleated RBC % Manual Slide Review Platelet Estimate Platelet Morphology RBC Morph Micro Appear PT INR Sodium Potassium Chloride Carbon Dioxide Anion Gap BUN Creatinine Estimated GFR (MDRD) Glucose Calcium Troponin I High Sens 6.2 PD MEDICAL DECISION MAKING - ED course Complexity details: reviewed old records, reviewed results, re-evaluated patient, considered differential, d/w patient, d/w PMD, d/w sales consultant insurance ED course: 79 yo F presented with fluid retention and lower extremity edema. Has known hx/of CHF and atrial fibrillation but reports med compliance. PT received 80mg of IV lasix and put out about 1L of urine. She also received her AM dose of metoprolol which she had missed and her atrial fibrillation rate stabilized in the low 100s. She was not hypotensive. Her oxygen requirements were at baseline (3L) w/o increased respiratory distress. I d/w Dr. Snell for possible admission though pt was not too far off her baseline. I spoke w/ admitting hospitalist who reviewed case and felt patient didn't meet admit criteria as she had no increased oxygen needs and stable vitals. Pt to resume her metoprolol at home and have advised her to increase her lasix by 40mg for the next five days to diurese. Pt to follow up with her PCP within the next week for checkup, weight, and repeat labs. Pt agrees w/ plan. I discussed return precautions in detail if symptoms worsen (fever, increased weight/edema despite meds, increased dyspnea, chest pain, or otherwise worsening symptoms). Departure - Departure Disposition: 01 Home, Self Care Clinical Impression: Bilateral lower extremity edema, Atrial fibrillation with rapid ventricular response CHF (congestive heart failure) Qualifiers: Heart failure type: unspecified Heart failure chronicity: acute on chronic Qualified Code(s): I50.9 - Heart failure, unspecified Condition: Fair Instructions: Atrial Fibrillation Dc, Lasix Prescriptions: Furosemide [Lasix] 40 mg PO DAILY #5 tablet Comments: You presented with fluid retention and weight gain. These are related to your atrial fibrillation and your congestive heart failure. We gave you a dose of IV lasix here and you were able to urinate about a liter. Your oxygen level is baseline and your labs are stable. I will discharge you home with a temporary increase in your lasix (continue your AM dose and take an additional 40mg of lasix mid-day). Please remain compliant with your other medication. We gave you a dose of metoprolol here and you will need to resume your regular dosing tonight. If you have new or worsening symptoms, please return to the ER. Please also follow up with your primary doctor within 1 week. Discharge Date/Time: 02/11/20 16:58
--- NOTE | 2020-02-11 11:58 | XRAY Report ---
PROCEDURE: Chest 1 View X-Ray INDICATIONS: chest pain TECHNIQUE: One view of the chest was acquired. COMPARISON: 12/26/2019 FINDINGS: Surgical changes and devices: None. Lungs and pleura: Hazy opacity throughout bilateral lung sol are seen suggestive of pulmonary gage a. Underlying small patchy pulmonary infiltrates cannot be entirely excluded. Small right pleural eff usion is also noted with blunting of right costophrenic angle. There is pulmonary vascular congestion . No gross pneumothorax. Mediastinum: Tortuous thoracic aorta is noted. Heart size is enlarged. Bones and chest wall: No suspicious bony lesions. Overlying soft tissues appear unremarkable. IMPRESSION: CHF changes with pulmonary edema and small right pleural effusion. No gross pneumothorax. Cannot rule out underlying small pulmonary infiltrates. Reviewed by: Navdeep Rodriguez MD on 02/11/2020 11:57 AM PDT Approved by: Navdeep Rodriguez MD on 02/11/2020 11:57 AM PDT Station ID: [id number]
[2020-02-11 12:03] LABS: BASOPHILS # (AUTO) 0.1 10^3/uL (0.0-0.1); BASOPHILS % (AUTO) 0.6 %; EOSINOPHILS # (AUTO) 0.4 10^3/uL (0.0-0.7); EOSINOPHILS % (AUTO) 2.5 %; HGB - HEMOGLOBIN 14.2 g/dL (12.0-16.0); LYMPHOCYTES % (AUTO) 13.5 %; MEAN CORPUSCULAR HEMOGLOBIN 24.9 pg (27.0-31.0); MEAN CORPUSCULAR HGB CONC 28.7 g/dL (32.0-36.0); MEAN CORPUSCULAR VOLUME 86.7 fL (81.0-99.0); MEAN PLATELET VOLUME 11.3 fL (7.9-10.8); MONOCYTES # (AUTO) 1.1 10^3/uL (0.0-1.0); MONOCYTES % (AUTO) 7.2 %; NEUTROPHILS % (AUTO) 75.6 %; PLT - PLATELET COUNT 240 10^3/uL (130-450); RED BLOOD COUNT 5.71 10^6/uL (4.20-5.40); RED CELL DISTRIBUTION WIDTH 18.5 % (12.0-15.0); WHITE BLOOD COUNT 14.6 x10^3/uL (4.8-10.8)
[2020-02-11 12:12] LABS: INR 1.3 (0.8-1.2)
[2020-02-11 12:14] LABS: CREATININE 0.6 mg/dL (0.4-1.0)
[2020-02-11 12:22] LABS: PLATELET ESTIMATE, MANUAL NORMAL (130-450,000) (NORMAL); PLATELET MORPHOLOGY NORMAL APPEARANCE (NORMAL); RBC MORPHOLOGY (MULTIPLE) NORMAL APPEARANCE (NORMAL)
[2020-02-11] MEDS ORDERED: FUROSEMIDE 40 MG/4 ML VIAL IVP STA (12:25)
[2020-02-11] MEDS ORDERED: FUROSEMIDE 100 MG/10 ML VIAL IVP STA (12:34)
[2020-02-11] MEDS ORDERED: METOPROLOL TARTRATE 50 MG TABLET PO STA (13:58)
[2020-02-11 15:51] VITALS: BP 127/115
== END 2020-02-11 16:58 | disposition home or self-care (01) ==
LOC: EDUNIT# → ED 11:11
DX: I11.0 Hypertensive heart disease with heart failure (principal); I50.9 Heart failure, unspecified; I48.20 Chronic atrial fibrillation, unspecified; Z79.01 Long term (current) use of anticoagulants; J44.9 Chronic obstructive pulmonary disease, unspecified; Z99.81 Dependence on supplemental oxygen; E11.9 Type 2 diabetes mellitus without complications; E66.01 Morbid (severe) obesity due to excess calories; Z68.41 Body mass index [BMI] 40.0-44.9, adult
CPT/HCPCS: 36415; 71045; 80048; 84484; 85025; 85610; 93005; 96374; 96375; 99284; A9270; J1940

== ENCOUNTER 2020-02-18 10:47 | Outpatient (CLI) | payer MEDICARE | END 2020-02-18 10:48 | disposition EMS.NT | LOC: EMS 10:47 | PROVIDERS: ATTEND Surgery | DX: R09.89 Other specified symptoms and signs involving the circulatory and respiratory systems (principal); R06.00 Dyspnea, unspecified ==

== ENCOUNTER 2020-02-21 16:47 | Outpatient (CLI) | payer MEDICARE | END 2020-02-21 16:48 | disposition E | LOC: EMS 16:47 | PROVIDERS: ATTEND Surgery ==